=== PATIENT | female | born 1995 | race Caucasian/White ===

== ENCOUNTER 2021-11-11 22:34 | Emergency (ER) | payer SELFPAY ==
[2021-11-12] MEDS ORDERED: NA CHLORIDE 0.9% 1,000 ML ONE (01:47)
[2021-11-12 02:40] LABS: Absolute Lymphocytes (CBC) 2.2 K/uL (0.7-4.9); Hematocrit 38.5 % (36.0-45.0); Lymphocytes % 30.6 % (15.3-44.8); MCV 83.7 fL (80-100); MPV 8.4 fL (7.6-11.3); RBC Red Blood Cell Count 4.59 M/uL (3.86-4.86)
[2021-11-12 02:41] LABS: Protime INR 1.12
[2021-11-12 03:01] LABS: Albumin 3.6 g/dL (3.4-5.0); Bilirubin Direct 0.1 mg/dL (0-0.2); Bilirubin Total 0.2 mg/dL (0.2-1.0); Magnesium 1.8 mg/dL (1.8-2.4); Potassium 3.5 mmol/L (3.5-5.1); Protein, Total 7.2 g/dL (6.4-8.2); Thyroid Stimulating Hormone 2.59 uIU/mL (0.360-3.740); Troponin High Sensitivity 8.8 pg/mL (<58.9)
--- NOTE | 2021-11-12 05:18 | EDPHYS ---
Physician Documentation [facility] Name: Oli Mcneil Age: 25 yrs Sex: Female : 1995 Arrival Date: 11/11/2021 Time: 22:39 Bed 30 Private MD: ED Physician Norberto Roberto HPI: 11/12 01:54 This 25 yrs old Female presents to ER via Ambulatory with complaints of sherine Shortness Of Breath, Left sided Pain. 01:54 The patient has shortness of breath at rest, with light activity. Onset: The sherine symptoms/episode began/occurred 5 day(s) ago. Duration: The symptoms are continuous, and are steadily getting worse. The patient's shortness of breath is aggravated by coughing, light activity. Severity of symptoms: At their worst the symptoms were mild in the emergency department the symptoms are unchanged. The patient has experienced similar episodes in the past, chronically. Historical: - Allergies: 11/11 23:05 Sulfa (Sulfonamide Antibiotics); jb4 23:05 PENICILLINS; jb4 - Home Meds: 23:05 Adderall XR Oral [Active]; jb4 - PMHx: 23:05 HTN; ADHD; jb4 - PSHx: 23:05 None; jb4 - Immunization history:: Adult Immunizations up to date. - Social history:: Smoking status: Patient/guardian denies using tobacco, but has a distant history of tobacco abuse. - Family history:: not pertinent. ROS: 11/12 01:54 Constitutional: Negative for fever, chills, and weight loss, Eyes: Negative for injury, sherine pain, redness, and discharge, ENT: Negative for injury, pain, and discharge, Neck: Negative for injury, pain, and swelling, Cardiovascular: Negative for chest pain, palpitations, and edema, Respiratory: Negative for shortness of breath, cough, wheezing, and pleuritic chest pain, Abdomen/GI: Negative for abdominal pain, nausea, vomiting, diarrhea, and constipation, : Negative for injury, bleeding, discharge, and swelling, MS/Extremity: Negative for injury and deformity, Skin: Negative for injury, rash, and discoloration, Neuro: Negative for headache, weakness, numbness, tingling, and seizure, Psych: Negative for depression, anxiety, suicide ideation, homicidal ideation, and hallucinations, Allergy/Immunology: Negative for hives, rash, and allergies, Endocrine: Negative for neck swelling, polydipsia, polyuria, polyphagia, and marked weight changes, Hematologic/Lymphatic: Negative for swollen nodes, abnormal bleeding, and unusual bruising. Abdomen/GI: Positive for abdominal pain, of the left upper quadrant and left lower quadrant. Back: Positive for pain with movement, of the left scapular area. Exam: 01:54 Constitutional: This is a well developed, well nourished patient who is awake, alert, sherine and in no acute distress. Head/Face: Normocephalic, atraumatic. Eyes: Pupils equal round and reactive to light, extra-ocular motions intact. Lids and lashes normal. Conjunctiva and sclera are non-icteric and not injected. Cornea within normal limits. Periorbital areas with no swelling, redness, or edema. ENT: Nares patent. No nasal discharge, no septal abnormalities noted. Tympanic membranes are normal and external auditory canals are clear. Oropharynx with no redness, swelling, or masses, exudates, or evidence of obstruction, uvula midline. Mucous membranes moist. Neck: Trachea midline, no thyromegaly or masses palpated, and no cervical lymphadenopathy. Supple, full range of motion without nuchal rigidity, or vertebral point tenderness. No Meningismus. Chest/axilla: Normal chest wall appearance and motion. Nontender with no deformity. No lesions are appreciated. Cardiovascular: Regular rate and rhythm with a normal S1 and S2. No gallops, murmurs, or rubs. Normal PMI, no JVD. No pulse deficits. Respiratory: Lungs have equal breath sounds bilaterally, clear to auscultation and percussion. No rales, rhonchi or wheezes noted. No increased work of breathing, no retractions or nasal flaring. Back: No spinal tenderness. No costovertebral tenderness. Full range of motion. Skin: Warm, dry with normal turgor. Normal color with no rashes, no lesions, and no evidence of cellulitis. MS/ Extremity: Pulses equal, no cyanosis. Neurovascular intact. Full, normal range of motion. Neuro: Awake and alert, GCS 15, oriented to person, place, time, and situation. Cranial nerves II-XII grossly intact. Motor strength 5/5 in all extremities. Sensory grossly intact. Cerebellar exam normal. Normal gait. Psych: Awake, alert, with orientation to person, place and time. Behavior, mood, and affect are within normal limits. 01:54 Abdomen/GI: Inspection: abdomen appears normal, Bowel sounds: normal, Palpation: mild abdominal tenderness, in the left upper quadrant and left lower quadrant, Liver: no appreciated palpable abnormalities, Hernia: not appreciated, tenderness. 07:19 ECG was reviewed by the Attending Physician. [facility] Vital Signs: 11/11 23:02 BP 127 / 67; Pulse 82; Resp 16; Temp 97.6(TE); Pulse Ox 97% on R/A; Weight 87.09 kg jb4 (R); Height 5 ft. 7 in. (170.18 cm) (R); Pain 6/10; 11/12 00:19 BP 125 / 48; Pulse 77; Resp 18 S; Pulse Ox 98% on R/A; as6 01:45 BP 127 / 76; Pulse 77; Resp 16 S; Pulse Ox 99% on R/A; aa9 02:58 BP 131 / 77; Pulse 76; Resp 16 S; Pulse Ox 97% on R/A; aa9 04:10 BP 105 / 60; Pulse 61; Resp 16 S; Pulse Ox 97% on R/A; aa9 05:26 BP 119 / 69; Pulse 59; Resp 18 S; Pulse Ox 97% on R/A; as6 11/11 23:02 Body Mass Index 30.07 (87.09 kg, 170.18 cm) jb4 MDM: 00:35 Patient medically screened. sherine 01:54 Differential diagnosis: Anemia Bronchitis. Antibiotic administration: Not indicated. sherine The patient's Wells Deep Vein Thrombosis Score was calculated as follows: Total Score: 0-2 Pts- Low Risk. The patient's pulmonary embolism risk score was calculated as follows: Total Score: 0-2 points. This patient was found to be at low risk for a pulmonary embolism by using the Well's assessment criteria. Immunization status:. Data reviewed: vital signs, nurses notes, lab test result(s), EKG, radiologic studies, CT scan, plain films. Data interpreted: threat monitoring analyst: rate is 77 beats/min, rhythm is regular, Pulse oximetry: on room air is 98 %. Test interpretation: by ED physician or midlevel provider: ECG, plain radiologic studies. Counseling: I had a detailed discussion with the patient and/or guardian regarding: the historical points, exam findings, and any diagnostic results supporting the discharge/admit diagnosis, lab results, radiology results, the need for outpatient follow up, for definitive care, a prehemmer, a family practitioner. 11/12 00:55 Order name: Basic Metabolic Panel; Complete Time: 05:16 [facility] 11/12 00:55 Order name: CBC with Diff; Complete Time: 03:00 [facility] 11/12 00:55 Order name: LFT's; Complete Time: 05:16 [facility] 11/12 00:55 Order name: Magnesium; Complete Time: 05:16 [facility] 11/12 00:55 Order name: NT PRO-BNP; Complete Time: 05:16 [facility] 11/12 00:55 Order name: PT-INR; Complete Time: 03:00 [facility] 11/12 00:55 Order name: Troponin HS; Complete Time: 05:16 [facility] 11/12 00:55 Order name: XRAY Chest (1 view) [facility] 11/12 00:55 Order name: Lipase; Complete Time: 05:16 [facility] 11/12 00:55 Order name: TSH; Complete Time: 05:16 [facility] 11/12 00:55 Order name: SARS-COV-2 RT PCR (Document "Date of Onset" if Symptomatic); Complete Time: [facility] 05:11/12 05:25 Order name: Urine --Ancillary (enter results) as6 07 05:26 Order name: Urine Dipstick-Ancillary EDMS 11/12 00:55 Order name: EKG; Complete Time: 00:55 [facility] 11/12 00:55 Order name: Cardiac monitoring; Complete Time: 02:57 [facility] 11/12 00:55 Order name: EKG - Nurse/Tech; Complete Time: 02:08 [facility] 11/12 00:55 Order name: IV Saline Lock; Complete Time: 02:57 [facility] 11/12 00:55 Order name: Labs collected and sent; Complete Time: 02:57 [facility] 11/12 00:55 Order name: O2 Per Protocol; Complete Time: 00:57 [facility] 11/12 00:55 Order name: O2 Sat Monitoring; Complete Time: 00:57 [facility] 11/12 00:55 Order name: Urine Dipstick-Ancillary (obtain specimen); Complete Time: 02:57 [facility] 11/12 00:55 Order name: Urine Test (obtain specimen); Complete Time: 02:57 [facility] 11/12 00:55 Order name: CT Chest For PE Angio [facility] 11/12 00:55 Order name: CT Abd/Pelvis - IV Contrast Only sherine EC:19 Rate is 65 beats/min. Rhythm is regular. QRS [place] is Normal. [place] interval is normal. QRS sherine interval is normal. QT interval is normal. No Q waves. T waves are Normal. No ST changes noted. Clinical impression: Normal ECG and No evidence of ischemia. Interpreted by me. Reviewed by me. Administered Medications: 02:10 Drug: NS 0.9% 1000 ml Route: IV; Rate: 1 bolus; Site: left antecubital; aa9 05:27 Follow up: Response: No adverse reaction; IV Status: Completed infusion; IV Intake: as6 1000ml Disposition Summary: 11/12/21 05:17 Discharge Ordered Location: Home sherine Problem: new sherine Symptoms: have improved sherine Condition: Stable sherine Diagnosis - Chest pain, unspecified - non-cardiac sherine - Abdominal pain, unspecified sherine - Weakness sherine - Other ovarian cysts - 8.3 cm right sherine - UTI/ Urinary tract infection, site not specified sherine Followup: sherine - With: Private Physician - When: 2 - 3 days - Reason: Recheck today's complaints, Continuance of care, Re-evaluation by your physician Followup: sherine - With: - When: 2 - 3 days - Reason: Recheck today's complaints, Re-evaluation by your physician Followup: sherine - With: Jia Walters MD - When: 2 - 3 days - Reason: Recheck today's complaints, Re-evaluation by your physician Discharge Instructions: - Discharge Summary Sheet sherine - Abdominal Pain, Adult sherine - Nonspecific Chest Pain, Adult sherine - Weakness sherine - Ovarian Cyst sherine - Urinary Tract Infection, Adult sherine - Fatigue sherine - Nonspecific Chest Pain, Adult, Vjdy-xy-Paow sherine - Aspirin and Your Heart sherine - Ovarian Cyst, Cmsf-dr-Pope sherine Forms: - Medication Reconciliation Form sherine - Thank You Letter sherine - Antibiotic Education sherine - Prescription Opioid Use sherine Prescriptions: - Pepcid 20 mg Oral Tablet - take 1 tablet by ORAL route every 12 hours for 15 days; 30 tablet; Refills: 0, sherine Product Selection Permitted - dicyclomine 20 mg Oral Tablet - take 1 tablet by ORAL route 4 times per day; 28 tablet; Refills: 0, Product sherine Selection Permitted - Cipro 250 mg Oral Tablet - take 1 tablet by ORAL route every 12 hours; 14 tablet; Refills: 0, Product sherine Selection Permitted Signatures: Dispatcher [employer] Norberto Whaley MD MD cha Bryson, James RN RN jb4 Jeanette Kim RN RN aa9 Héctor Spencer RN as6 Corrections: (The following items were deleted from the chart) 11/11 23:07 23:05 Allergies: No Known Allergies; pippa jb4
--- NOTE | 2021-11-12 05:18 | ER ---
Nurse's Notes [facility] Name: Oli Mcneil Age: 25 yrs Sex: Female : 1995 Arrival Date: 11/11/2021 Time: 22:39 Bed 30 Private MD: Diagnosis: Chest pain, [id number];Abdominal pain, unspecified;Weakness;Other ovarian cysts-8.3 cm right ;UTI/ Urinary tract infection, site not specified Presentation: 11/11 23:02 Chief complaint: Patient states: For the past few months I have had chest tightness jb4 from my back to my chest. I started feeling short of breath around the same time. I was recently at an urgent care, was told nothing was wrong, and now the pain radiates down my left side. Coronavirus screen: At this time, the client does not indicate any symptoms associated with coronavirus-19. Ebola Screen: No symptoms or risks identified at this time. Initial Sepsis Screen: Does the patient meet any 2 criteria? No. Patient's initial sepsis screen is negative. Does the patient have a suspected source of infection? No. Patient's initial sepsis screen is negative. Risk Assessment: Do you want to hurt yourself or someone else? Patient reports no desire to harm self or others. Onset of symptoms was November 11, 2021. Transition of care: patient was not received from another setting of care. 23:02 Method Of Arrival: Ambulatory jb4 23:02 Acuity: YESENIA 3 jb4 Historical: - Allergies: 23:05 Sulfa (Sulfonamide Antibiotics); jb4 23:05 PENICILLINS; jb4 - Home Meds: 23:05 Adderall XR Oral [Active]; jb4 - PMHx: 23:05 HTN; ADHD; jb4 - PSHx: 23:05 None; jb4 - Immunization history:: Adult Immunizations up to date. - Social history:: Smoking status: Patient/guardian denies using tobacco, but has a distant history of tobacco abuse. - Family history:: not pertinent. Screenin/05 00:19 Abuse screen: Denies threats or abuse. Denies injuries from another. Nutritional as6 screening: No deficits noted. Tuberculosis screening: No symptoms or risk factors identified. Fall Risk None identified. Assessment: 00:18 General: Appears in no apparent distress. Behavior is calm, cooperative. General: as6 Reports fatigue for. Pain: Complains of pain in left scapular area, anterior aspect of left upper chest, left breast, posterior aspect of left lateral abdomen and anterior aspect of left lateral abdomen. Neuro: Level of Consciousness is awake, alert, obeys commands, Oriented to person, place, time, situation. Cardiovascular: JVD is absent Patient's skin is warm and dry. Respiratory: Respiratory effort is even, unlabored. Musculoskeletal: Reports pain in back, chest and abdomen. 02:59 Reassessment: Patient appears in no apparent distress at this time. Patient is alert, aa9 oriented x 3, equal unlabored respirations, skin warm/dry/pink. 04:11 Reassessment: Patient appears in no apparent distress at this time. Patient is alert, aa9 oriented x 3, equal unlabored respirations, skin warm/dry/pink. 04:11 General: updated pt on awaiting CT results . aa9 Vital Signs: 11/11 23:02 BP 127 / 67; Pulse 82; Resp 16; Temp 97.6(TE); Pulse Ox 97% on R/A; Weight 87.09 kg jb4 (R); Height 5 ft. 7 in. (170.18 cm) (R); Pain 6/10; 11/12 00:19 BP 125 / 48; Pulse 77; Resp 18 S; Pulse Ox 98% on R/A; as6 01:45 BP 127 / 76; Pulse 77; Resp 16 S; Pulse Ox 99% on R/A; aa9 02:58 BP 131 / 77; Pulse 76; Resp 16 S; Pulse Ox 97% on R/A; aa9 04:10 BP 105 / 60; Pulse 61; Resp 16 S; Pulse Ox 97% on R/A; aa9 05:26 BP 119 / 69; Pulse 59; Resp 18 S; Pulse Ox 97% on R/A; as6 11/11 23:02 Body Mass Index 30.07 (87.09 kg, 170.18 cm) jb4 ED Course: 11/11 22:39 Patient arrived in ED. bp1 23:05 Triage completed. jb4 23:05 Arm band placed on right wrist. jb4 23:43 Héctor Spencer, RN is Primary Nurse. as6 11/12 00:19 Bed in low position. Call light in reach. Side rails up X 1. Adult w/ patient. Pulse ox as6 on. NIBP on. Warm blanket given. 00:35 Norberto Roberto MD is Attending Physician. sherine 01:19 XRAY Chest (1 view) In Process Unspecified. EDMS 02:00 Inserted saline lock: 20 gauge in left antecubital area, using aseptic technique. Blood aa9 collected. 02:56 SARS-COV-2 RT PCR (Document "Date of Onset" if Symptomatic) Sent. aa9 02:56 TSH Sent. aa9 02:56 Lipase Sent. aa9 02:57 Basic Metabolic Panel Sent. aa9 02:57 LFT's Sent. aa9 02:57 Magnesium Sent. aa9 02:57 NT PRO-BNP Sent. aa9 02:57 Troponin HS Sent. aa9 03:22 CT Chest For PE Angio In Process Unspecified. EDMS 03:22 CT Abd/Pelvis - IV Contrast Only In Process Unspecified. EDMS 05:16 David Orourke DO is Referral Physician. sherine 05:17 Jia Walters MD is Referral Physician. sherine 05:39 No provider procedures requiring assistance completed. IV discontinued, intact, aa9 bleeding controlled, No redness/swelling at site. Pressure dressing applied. 07:16 Primary Nurse role handed off by Héctor Spencer RN iw Administered Medications: 02:10 Drug: NS 0.9% 1000 ml Route: IV; Rate: 1 bolus; Site: left antecubital; aa9 05:27 Follow up: Response: No adverse reaction; IV Status: Completed infusion; IV Intake: as6 1000ml Medication: 05:40 VIS not applicable for this client. aa9 Intake: 05:27 IV: 1000ml; Total: 1000ml. as6 Outcome: 05:17 Discharge ordered by . sherine 05:39 Discharged to home ambulatory, with family. aa9 05:39 Condition: stable 05:39 Discharge instructions given to patient, family, Instructed on discharge instructions, follow up and referral plans. medication usage, Demonstrated understanding of instructions, follow-up care, medications, Prescriptions given X 3. 05:40 Patient left the ED. aa9 07:21 Patient left the ED. iw Signatures: Dispatcher [employer] EDTN Norberto Roberto MD MD cha Williams, Irene RN Dejuan Cormier RN RN [email or web address] Aurora Silva Ashby, RN RN as6 Jeanette Kim RN RN aa9 Corrections: (The following items were deleted from the chart) 11/11 23:07 23:05 Allergies: No Known Allergies; jb4 jb4
[2021-11-12 05:26] LABS: Urine Blood Negative (Negative); Urine Glucose Negative (Negative); Urine Protein Negative (Negative); Urine Specific Gravity 1.015 (1.005-1.030); Urine pH 5.5 (5.0-7.0)
[2021-11-12 05:32] LABS: Urine Specific Gravity/Preg 1.015 (1.005-1.030)
[2021-11-12 06:09] VITALS: TEMP 97.6
[2021-11-12 06:13] VITALS: O2SAT 97
[2021-11-12 06:17] VITALS: BP 119/69
--- NOTE | 2021-11-12 07:55 | EKG ---
Test Date: 2021-11-12 Test Time: 02:07:56 Tube Making Machine Operator: MEASUREMENT RESULTS: Intervals: Rate: 65 OK: 156 QRSD: 100 QT: 386 QTc: 401 Hyndman: P: 27 OK: 156 QRS: 82 T: 73 INTERPRETIVE STATEMENTS: Normal sinus rhythm with sinus arrhythmia Normal ECG No previous ECG available for comparison Electronically Signed On 11-12-21 07:54:57 CDT by Carson Wei
--- NOTE | 2021-11-12 13:16 | RAD REPORT ---
EXAM DESCRIPTION: RAD - Chest Single View - 11/12/2021 1:17 am CLINICAL HISTORY: 25 years, Female, CHEST PAIN COMPARISON: None. FINDINGS: Single view of the chest was obtained portable. No prior films are available for compariso n. The cardiomediastinal silhouette demonstrate to be unremarkable. The heart is not enlarged. The thoracic aorta is unremarkable. Costophrenic angles are sharp. No areas of consolidation or masses are seen. The rest of the soft tissue and bony structures demonstrate to be unremarkable. IMPRESSION: NO ACUTE CARDIOPULMONARY DISEASE SEEN. Electronically signed by: Gabriel Fleming MD 11/12/2021 1:33 AM CDT Due to temporary technical issues with the PACS/Fluency reporting system, reports are being signed by the in house radiologist without review as a courtesy to ensure prompt reporting. The interpreting r adiologist is fully responsible for the content of the report.
--- NOTE | 2021-11-12 13:53 | RAD REPORT ---
EXAM DESCRIPTION: CT - Chest For Pe Angio - 11/12/2021 6:54 am COMPARISON: None. CLINICAL HISTORY: Abdominal pain, acute, nonlocalized TECHNIQUE: CT images through the chest with IV contrast using the pulmonary embolus protocol and thr ough the abdomen and pelvis. Multiplanar reformats. MIPS reformats are provided. Automated exposure control was utilized on this examination as a dose lowering technique. FINDINGS: Pulmonary arteries and vascular: Diagnostic quality bolus. No filling defects. Heart and mediastinum: Heart size is normal. No lymphadenopathy. Thyroid gland: Visualized portions are normal. Lungs: Clear. Airways: No filling defects. No bronchiectasis. Pleura: No pneumothorax. No significant pleural effusion. Musculoskeletal and soft tissues: Within normal limits for age. CT ABDOMEN & PELVIS FINDINGS: Liver: Normal. Gallbladder and biliary: Normal gallbladder. Unremarkable biliary tree. Pancreas: Normal. Spleen: Normal. Kidneys and adrenal glands: A 1.0 cm left adrenal myelolipoma is present. Bilateral superior renal co rtical scarring is present. Stomach and Small Bowel: The stomach and small bowel are normal. Urinary bladder: Normal. Uterus and Adnexa: An 8.3 cm right adnexal cystic lesion is present. Colon and Appendix: The colon is unremarkable. No evidence of appendicitis. Peritoneal cavity: No ascites or free air. Retroperitoneum and lymph nodes: Normal. Vascular: Unremarkable. Musculoskeletal and soft tissues: Soft tissues are unremarkable. No aggressive bone lesions. No c ompression fracture. IMPRESSION: CHEST IMPRESSION: No evidence of pulmonary embolus or other acute chest process. ABDOMEN AND PELVIS IMPRESSION: 1. No acute intra-abdominal abnormality. 2. Bilateral superior renal scarring. 3. 8.3 cm right adnexal cystic lesion. Recommend ultrasound follow-up in 3-6 months. Electronically signed by: Fran Ortiz MD 11/12/2021 5:09 AM CDT Due to temporary technical issues with the PACS/Fluency reporting system, reports are being signed by the in house radiologist without review as a courtesy to ensure prompt reporting. The interpreting r adiologist is fully responsible for the content of the report.
--- NOTE | 2021-11-12 13:55 | RAD REPORT ---
EXAM DESCRIPTION: CT - Abdomen Pelvis W Contrast - 11/12/2021 6:54 am COMPARISON: None. CLINICAL HISTORY: Abdominal pain, acute, nonlocalized TECHNIQUE: CT images through the chest with IV contrast using the pulmonary embolus protocol and thr ough the abdomen and pelvis. Multiplanar reformats. MIPS reformats are provided. Automated exposure control was utilized on this examination as a dose lowering technique. FINDINGS: Pulmonary arteries and vascular: Diagnostic quality bolus. No filling defects.Heart and me diastinum: Heart size is normal. No lymphadenopathy.Thyroid gland: Visualized portions are normal.Willie gs: Clear.Airways: No filling defects. No bronchiectasis.Pleura: No pneumothorax. No significant pleu ral effusion.Musculoskeletal and soft tissues: Within normal limits for age. CT ABDOMEN & PELVIS FINDINGS:Liver: Normal.Gallbladder and bi liary: Normal gallbladder. Unremarkable biliary tree.Pancreas: Normal.Spleen: Normal.Kidneys and adre nal glands: A 1.0 cm left adrenal myelolipoma is present. Bilateral superior renal cortical scarring is present.Stomach and Small Bowel: The stomach and small bowel are normal.Urinary bladder: Normal.Ut erus and Adnexa: An 8.3 cm right adnexal cystic lesion is present.Colon and Appendix: The colon is un remarkable. No evidence of appendicitis.Peritoneal cavity: No ascites or free air.Retroperitoneum and lymph nodes: Normal.Vascular: Unremarkable.Musculoskeletal and soft tissues: Soft tissues are unrema rkable. No aggressive bone lesions. No compression fracture. IMPRESSION: CHEST IMPRESSION: No evidence of pulmonary embolus or other acute chest process.ABDOME N AND PELVIS IMPRESSION: 1. No acute intra-abdominal abnormality. 2. Bilateral superior renal scarr ing. 3. 8.3 cm right adnexal cystic lesion. Recommend ultrasound follow-up in 3-6 months. Electronically signed by: Fran Ortiz MD 11/12/2021 5:09 AM CDT Due to temporary technical issues with the PACS/Fluency reporting system, reports are being signed by the in house radiologist without review as a courtesy to ensure prompt reporting. The interpreting r adiologist is fully responsible for the content of the report.
== END 2021-11-12 07:21 | disposition home or self-care (01) ==
LOC: ER 22:34
DX: R07.89 Other chest pain (principal); R10.9 Unspecified abdominal pain; R53.1 Weakness; N39.0 Urinary tract infection, site not specified; N83.291 Other ovarian cyst, right side; I10 Essential (primary) hypertension; Z88.0 Allergy status to penicillin; Z88.2 Allergy status to sulfonamides
CPT/HCPCS: 36415; 71045; 71275; 74177; 80048; 80076; 81003; 81025; 83690; 83735; 83880; 84443; 84484; 85025; 85610; 93005; 96360; 96361; 99284; J7030; Q9967; U0003

== ENCOUNTER 2022-08-01 02:10 | Emergency (ER) | payer SELFPAY ==
--- OUTSIDE RECORDS SUMMARY | 2022-08-01 02:14 | XMS REPORT | Continuity of Care Document ---
:1995 Author Organization [facility] Address [address] [facility] [address] [place] [address] Care Team Providers Name Role Phone Asked, No Pcp Primary Care Physician Unavailable Uvaldo Kenney Attending Clinician Unavailable Sandro Lewis Attending Clinician Unavailable Bonita Mathis Attending Clinician Unavailable Damian Whitt Attending Clinician Unavailable LIANA ROJAS Attending Clinician Unavailable Physician, No Primary or Family Admitting Clinician Unavaila ble Payers Payer Name Policy Type Policy Number Effective Date Expiration Date S ource Problems Condition Condition Condition Status Onset Resolution Last Treating Co mments Source Name Details Category Date Date Treatment Clinician Date No known No known Disease Metho di active active st problems problems Hospit [facility] l Allergies, Adverse Reactions, Alerts Allergy Allergy Status Severity Reaction(s) Onset Inactive Treating Comm ents Source Name Type Date Date Clinician Penicill DA Active [place] [facility] [place] [facility] 00 are [place] Sulf[place] DA Active [place] [facility] (Sulf[place] 10-19 [facility] 00:00: [facility] Antibiot 00 are ics) [place] Penicill DA Active [place] [facility] [place] 00:[facility] 00 are [place] Sulf[place] DA Active [place] [facility] 6[facility]11 [place] [facility] 00:00: [facility] Antibiot 00 are ics) [place] Penicill Propensi Active [facility] reaction 00 Center s Sulfa Propensi Active [facility] adverse [facility] Antibiot reaction 00 Center ics) s Penicill Propensi Active [facility] ty to [facility] adverse 00:00: Hospita reaction 00 l s to drug Sulfa Propensi Active [facility] (Sulfona ty to 07-06 [facility] adverse 00:00: Hospita Antibiot reaction 00 l ics) s to drug Social History Social Habit Start Date Stop Date Quantity Comments Source History of tobacco Cigarette Smoker [facility] use [facility] Alcohol intake 2017-07-07 2017-07-07 .57 /d [facility] Kateryna es 00:00:00 00:00:00 [facility] Cigarettes smoked 2017-07-07 2017-07-07 [facility] current (pack per 00:00:00 00:00:00 [facility] day) - Reported Cigarette 2017-07-07 2017-07-07 [facility] pack-years 00:00:00 00:00:00 [facility] Tobacco use and 2017-07-07 2017-07-07 Never used [facility] nishs exposure 00:00:00 00:00:00 [facility] Sex Assigned At [birth year] [facility] 00:00:00 00:00:00 [facility] Smoking Status Start Date Stop Date Source Current every day smoker 2017-07-07 00:00:00 [facility] Medications Ordered Filled Start Stop Current Ordering Indication Dosage Frequency Signature Comments Components Source Medication Medication Date Date Medication? Clinician (SIG) Name Name No known No No known Metho di medications 8-[address] 13[facility]00: [facility] l No known No No known Metho di medications 8-[address] [facility]: [facility] l Procedures This patient has no known procedures. Plan of Care Planned Activity Planned Date Details Comments Source Future Scheduled 2022-04-28 Screening for [facility] Test 22:38:56 malignant neoplasm of cervix (procedure) [code = 694894933] Future Scheduled 2022-04-28 [facility]:38:56 [code = INFLUENZA VACCINE] Future Scheduled 2022-04-28 COVID-[address] [facility] Test 22:38:56 (#1) [code = COVID-19 VACCINE (#1)] Future Scheduled 2022-04-28 [facility] 22:38:56 (#1) [code = COVID-19 VACCINE (#1)] Future Scheduled 2022-04-28 Screening for [facility] Test 22:38:56 malignant neoplasm of cervix (procedure) [code = 132559980] Future Scheduled 2022-04-28 [facility] 22:38:56 [code = INFLUENZA VACCINE] Future Scheduled 2022-03-14 Screening for [facility] Test 20:18:12 malignant neoplasm of cervix (procedure) [code = 569926322] Future Scheduled 2022-03-14 [facility] 20:18:12 [code = INFLUENZA VACCINE] Future Scheduled 2022-03-14 [facility] 20:18:12 (#1) [code = COVID-19 VACCINE (#1)] Encounters Start End Encounter Admission Attending Care Care Encounter Source Date/Time Date/Time Type Type Clinicians Facility Department ID 2021-03-31 Inpatient EM Pablito GUY CAZARES [id number] [facility] 06:38:00 Uvaldo 25 [facility] are [facility] 2022-04-28 2022-04-28 Emergency EM Joshua, [facility] [id number] [facility] 21:44:00 23:51:00 Sandro 54 [facility] are [place] 2022-04-11 2022-04-11 Emergency EM Del, [facility] [id number] [facility] 10:17:00 15:00:00 Bonita 13 [facility] are [place] 2021-06-03 2021-06-03 Emergency EM Whitt, [facility] [id number] [facility] 01:34:00 02:16:00 Damian 84 [facility] are [place] 2021-04-01 2021-04-01 Emergency EM Whitt [facility] [id number] [facility] 21:40:00 23:14:00 Damian 21 [facility] are [place] 2020-10-19 2020-10-20 Emergency EM Jose Eduardo, ZULEIKATB SAGE [id number] [facility] 22:38:00 01:57:00 Damian 31 [facility] are [place] Results Test Description Test Time Test Comments Results Result [facility] e Comments - XR CHEST 2 V 2022-04-28 23:08:00 [facility] 1995 Sex: F Patie nt Name: SEBAS LOU Unit No: [id number] EXAMS: CPT: [id number] XR CHEST 2 V [id number] EXAM: XR CHEST 2 VIEWS DATE: 04/28/2022 9:47 PM INDICATION: SOB COMPARISON: None. TECHNIQUE: PA and lateral chest radiographs. FINDINGS: Lines, tubes and hardware: None. Lungs and pleura: Pulmonary vascularity is normal. The lungs are clear. The costophrenic sulci are sharp without effusion. No pneumothorax is identified. Heart and mediastinum: The heart size is normal. The mediastinal contours are normal. Bones, soft tissues: No acute abnormality. IMPRESSION: No acute cardiopulmonary abnormality. at 2308 Reported and signed by: RYAN ANDERSON M.D. CC: Technologist: Ludmila Montoya Time: DAP (Gy m2): Air Kerma (mGy): Trscr Dt/Tm: 04/28/2022 (2308) by:[email or web address] Orig Print D/T: S: 04/28/2022 (2861) BATCH NO: N/A Name: SEBAS LOU [facility] [place] Phys: Sandro Taylor MD [address] : 1995 Age: 26 Sex: F Thierno Bauer Loc: T.ERS Exam Date: 04/28/2022 Status: REG ER PH: FAX: PAGE 1 Signed Report Coronavirus 2019 nCoV Bedside 2022-04-28 23:07:00 Test Item Value Reference Range Interpretation Comme nts Coronavirus 2018 nCoV Negative NEGATIVE TESTI NG COMPLETED WITHIN ONE HOUR - Bedside (test code = DELAY I N REPORTING DUETO ONE TECH WHO [id number]) WAS BUSY IN OOD BANK DEPTTHE ID NOW COVID-19 EUA RODRIGUEZ S NOT BEEN FDA CLEARED ORAPPROVED. IT HAS BEEN AUTHORIZED BY THE FDA UNDER A NEMERGENCY USE AUTHORIZATION F OR USE BY AUTHORIZEDLABOR ATORIES AND PATIENT CARE SETTINGS. THE TEST HAS BEENAUTHORIZED ONLY FOR THE DETECTION OF NUCLEIC ACID [id number], NOT FOR ANY OTHER V IRUSES OR PATHOGENS, AND ISONLY AUTH ORIZED FOR THE DURATION OF THE DECLARATION THATCIRCUMSTANC ES EXIST JUSTIFYING THE AUTHORIZATI ON OFEMERGENCY USE OF IN VITRO DIAGNO STIC TESTS FOR DETECTIONAND/OR DIAGNOSIS OF COVID-19 UNDER SECTION 5 64(B)(1) OF [place], 21 U.S.C. 360bbb-3 (b)(1), UNLESS THE AUTHORIZATION I STERMINATED OR REVOKED SOONER.Negative results should be treated as pres umptive and, ifinconsistent with clinical signs and symptoms or necessaryfor patient managmeent, madhavi uld be tested with differentauthor izd or cleared molecular tests . Negative results donot preclude SARS-Cov-2 infection and should not be used asthe sole basis for patie nt management decisions. Nega tiveresults should be considered in t he context of a patient'srecent exposures, history and presence of clinical signs andsymptons con sistent with COVID-19. UR HCG [id number] 22:42:00 Test Item Value Reference Range Interpretation Comments UR HCG QUAL (test code = HCGQLU) NEGATIVE NEGATIVE HCG SERUM [id number] 15:59:00 Test Item Value Reference Range Interpretation Comments HCG SERUM QUAL (test code = HCGQL) NEGATIVE NEGATIVE DATE OF LAST MENSTRUAL PERIOD: 04/10/22B-TYPE NATRIURETIC [id number] 14:01:00 Test Item Value Reference Range Interpretation Comments B-TYPE NATRIURETIC PEPTIDE (test code 5 pg/mL 0-100 N = BNP) [id number] 13:59:00 Test Item Value Reference Range Interpretation Comments TROPONIN-I < 2.5 ng/L 0.0-34.0 N CAUTION: UNITS OF THE (test code = CURRENT TEST ME THODOLOGY TROPI) (ng/L) DIFFERFR OM THE PRIOR TEST METHODOLOG Y (ng/mL) BY A FACTOR OF 100 0.RESULTS FROM DIFFERENT METHODS SHOULD NOT BE C OMPARED TO ONEANOTHER Q UANTITATIVE RESULTS AND URL S MAY VARY BY METHOD. IN OR BERHANE TO DISTINGUISH ACU TE ELEVATIONS OF HIGH SENSITI VETROPONIN FROM OTHER CLIN ICAL CONDITIONS, THE UNIVERSALDEFINI TION OF MYOCARDIAL INFA RCTION STRESSES CLINIC ALASSESSMENT AND THE NEED FO R SERIAL MEASUREMENTS TO OBSERVE ARISE AND/OR FA LL ABOVE THE UPPER LIMIT OF THE REFERENCERANGE. CONSIDERATION F OR CARDIOLOGY EVALUATION AND DRAWINGTHIRD hs-cTn, INCLUDI NG IF CHANGE IN THE CLINICAL STATUS ORSERIAL hs-cTn s ARE INCREASING, PAR TICULARLY ABOVE THE 99THGENDER-SPEC IFIC PERCENTILE. BASIC METABOLIC [id number] 13:58:00 Test Item Value Reference Range Interpretation Comments SODIUM (test code 137 mmol/L 136-145 N = NA) POTASSIUM (test 4.5 mmol/L 3.4-4.5 N code = K) CHLORIDE (test 103 mmol/L 98-107 N code = CL) CARBON DIOXIDE 27 mmol/l 20-31 N (test code = CO2) GLUCOSE (test code 86 mg/dL 74-106 N = GLU) BLOOD UREA 9 mg/dL 9-23 N NITROGEN (test code = BUN) GLOMERULAR >=60 max >60 The Glomerular FILTRATION RATE estimate Filtration R ate is a (test code = GFR) calculated parameterbased on serum Creatinin e, patient age and sex. GFR valuesless than 60 mL/min/1.73 square meters are chan cative ofChronic Kidne y Disease. Values less than 15 mL/min/1.73squa re meters indicate Kidney failure. The calculation for GFR is based on the CK D-EPI (2020) calculat ion. This formulais race indifferent and is the recommended formula for GFR by the National Kidney Foundation for Adults.The GFR will not calculate i f the sex is unknown or if thepatient's ag e is <18 years. CREATININE (test 0.74 mg/dL 0.55-1.02 N code = CREAT) CALCIUM (test code 9.1 mg/dL 8.6-10.3 N = CA) LIVER FUNCTION [id number] 13:58:00 Test Item Value Reference Range Interpretation Comments TOTAL PROTEIN (test code = PROT) 7.2 g/dL 5.7-8.2 N ALBUMIN (test code = ALB) 4.1 g/dl 3.4-5.0 N BILIRUBIN TOTAL (test code = BILT) 0.4 mg/dL 0.3-1.2 N BILIRUBIN DIRECT (test code = 0.1 mg/d/L 0.0-0.3 N BILD) BILIRUBIN INDIRECT (test code = 0.3 mg/dL 0.0-1.2 N BILIND) SGOT/AST (test code = AST) 30 U/L 0-34 N SGPT/ALT (test code = ALT) 19 U/L 10-49 N ALKALINE PHOSPHATASE (test code = 79 U/L 46-116 N ALKP) [id number] 13:58:00 Test Item Value Reference Range Interpretation Comments LIPASE (test code = LIP) 41 U/L 12-53 N PROTHROMBIN [id number] 13:49:00 Test Item Value Reference Range Interpretation Comments PROTHROMBIN TIME 11.9 SECONDS 9.5-12.9 N PATIENT (test code = PTP) INTERNATIONAL NORMAL 1.0 0.85-1.15 N The INR is to be used RATIO (test code = only for monitoring INR) ORAL ANTICOAGULANTTH ERAPY. Indication INR Value1. Prophylaxis/taylor atment of: Venous Thro mbosis, Pulmonary Embol ism 2.0 - 3.02. Prevent ion of systemic emboli sm from: Tissue he art valves 2.0 - 3 .0 Acute myocardia l infarction (to present systemic emboli sm)* 2.0 - 3.0 Valvu lar heart disease 2 .0 - 3.0 Atrial fibrillation 2. 0 - 3.03. Mechanica l prosthetic valv es (high risk) 2.5 - 3.5 * If oral anticoagulant t herapy is elected to preventrecurren t myocardial infa rction, an INR of 2.5-3 .5 isrecommended, consistent with Food and Drug Administrationr ecommen dations. THROMBOPLASTIN TIME [id number] 13:49:00 Test Item Value Reference Range Interpretation Comments THROMBOPLASTIN TIME PARTIAL (test 31 SECONDS 25.1-36.5 N code = PTT) [id number] 13:49:00 Test Item Value Reference Range Interpretation Comments D-DIMER (test < 215 ng/mLFEU 0-500 N THE DDIMER M ETHOD IS USED code = IN THE EXCLUSIO N OF DEEP DDIMER) VEINTHROMBOSIS AND/OR PULMONARY EMBOL ISM AND THE CLINICAL CUT-OF F VALUE FOR EXCLUSION (500 NG/ML FEU) OF THESE CONDIT IONSIS VALIDATED BY E EDGE GLUE MACHINE TENDER OF THE METHOD. A NEGATIVE DDIM ER RESULT WHEN COMBINED W ITH A CLINICALASSESSM ENT OF LOW PRETEST PROBABI LITY HAS BEEN SHOWN TO H AVEA HIGH NEGATIVE PREDIC TIVE VALUE OF DVT OR PE. D -DIMER VALUES >500 ng/ mL ARE NOT DIAGNOSTIC FOR DVT,PEOR DIC WITHOUT OTHER C ONFIRMATORY TESTS AND APPROPRIATECLIN ICAL EVALUATIONS. Coronavirus 2019 nCoV [id number] 13:24:00 Test Item Value Reference Range Interpretation Comments Coronavirus 2019 Negative NEGATIVE THE ID NOW COVID-19 EUA HAS nCoV Bedside (test NOT BEEN FDA CLEARED code = ORAPPROVED. IT HAS BEEN [id number]) AUTHORIZED BY THE FDA UNDER ANEMERGENCY USE AUTHORIZATION F OR USE BY AUTHORIZEDLABOR ATORIES AND PATIENT CARE SE TTINGS. THE TEST HAS BEENAU THORIZED ONLY FOR THE DETECTI ON OF NUCLEIC ACID FROMSARS-C oV-2, NOT FOR ANY OTHER VIRUS ES OR PATHOGENS, AND ISONLY AUTHORIZED FOR THE DURATION OF THE DECLARAT ION THATCIRCUMSTANC ES EXIST JUSTIFYING THE AUTHORIZATION OFEMERGENCY USE OF IN VITRO DIAGNOSTIC TEST S FOR DETECTIONAND/OR DIAGNOSIS OF COVID-19 UNDER SECTION 564(B)(1) OF [facility], 21 U.S.C. 360bbb-3 (b)(1), UNLESS THE AUTH ORIZATION ISTERMINATED OR REVOKED SOONER.Negative results should be treat ed as presumptive and , ifinconsistent with clinical signs and sympt oms or necessaryfor pa tient managmeent, madhavi uld be tested with differenta uthorizd or cleared molecul ar tests. Negative result s donot preclude SARS-C ov-2 infection and s hould not be used asthe sole basis for patient managem ent decisions. Nega tiveresults should be consi dered in the context of a pa tient'srecent exposures, hist ory and presence of cli nical signs andsymptons con sistent with COVID-19. CBC W/AUTO [id number] 13:23:00 Test Item Value Reference Range Interpretation Comments WHITE BLOOD CELL (test code = WBC) 7.46 K/mm3 5.0-12.0 N RED BLOOD CELL (test code = RBC) 4.68 M/mm3 4.20-5.40 N HEMOGLOBIN (test code = HGB) 13.5 G/DL 12.0-16.0 N HEMATOCRIT (test code = HCT) 41.2 % 34.9-44.5 N MEAN CELL VOLUME (test code = MCV) 88 fL 81-99 N MEAN CELL HGB (test code = MCH) 28.8 PGM 27-31 N MEAN CELL HGB CONCENTRATION (test 32.8 G/DL 33-37 L code = MCHC) RED CELL DISTRIBUTION WIDTH (test 12.2 % 11.6-16.2 N code = RDW) PLATELET COUNT (test code = PLT) 243 K/mm3 130-400 N MEAN PLATELET VOLUME (test code = 10.5 fl 7.4-10.4 H MPV) NEUTROPHIL % (test code = NT%) 71.8 % 43-65 H IMMATURE GRANULOCYTE % (test code 0.3 % 0.0-2.0 N = IG%) LYMPHOCYTE % (test code = LY%) 20.6 % 20.5-45.5 N MONOCYTE % (test code = MO%) 6.0 % 5.5-11.7 N EOSINOPHIL % (test code = EO%) 0.9 % 0.9-2.9 N BASOPHIL % (test code = BA%) 0.4 % 0.2-1.0 N NUCLEATED RBC % (test code = 0.0 % 0-1.0 N NRBC%) NEUTROPHIL # (test code = NT#) 5.35 K/mm3 2.2-4.8 H LYMPHOCYTE # (test code = LY#) 1.54 K/mm3 1.3-2.9 N MONOCYTE # (test code = MO#) 0.45 K/mm3 0.3-0.8 N EOSINOPHIL # (test code = EO#) 0.07 K/MM3 0.0-0.2 N BASOPHIL # (test code = BA#) 0.03 K/mm3 0.0-0.1 N - CTA CHEST FOR [id number] 12:50:00 [facility] 1995 Sex: FPatient Name: SEBAS LOU Unit No: [id number] EXAMS: CPT: [id number] [place] [address] CTA CHEST WITH CONTRAST: INDICATIONS:Chest pain. Shortness of breath. COMPARISON: None available TECHNIQUE: Axial CT chest with IV contrast was performed. Coronal and sagittal reformats reconstructed. Bolus tracking series followed by contrast-enhanced CT. Data set analyzed on a 3-D workstation with image post processing. CT radiation dose optimization is achieved for this examination by the use of a CT protocol in accordance with ACR practice standards and adherence to functional consultant's recommendations. Contrast: 100cc Isovue-300. Total DPL: 768.81mGy*cm. FINDINGS: Unremarkable thyroid. No enlarged supraclavicular oraxillary lymph node. The visualized central airway is unremarkable. No hilar or mediastinal lymphadenopathy. Cardiac size is normal. No coronary calcifications. The lungs are clear of infiltrates. No pleural effusion, masses, pneumothorax or consolidation. The pulmonary artery are opacified and no pulmonary emboli seen. The thoracic aorta is of normal caliber without dissection or aneurysm. A 1.1 cmfat-containing left adrenal nodule suggestive of an adrenal myelolipoma. IMPRESSION: No pulmonary emboli. No acute lung infiltrate. No acute abnormality within the chest. at 1250 Reported and signed by: Rich Saab MD CC: Bonita Mathis MDTechnologist: Flora Son CTDI: 20.17 DLP: 768.81 Trscr Dt/Tm: 04/11/2022 (1250) by:[email or web address] Orig Print D/T: S: 04/11/2022 (8563) BATCH NO: N/A Name: SEBAS LOU [facility] [place] Phys: Bonita Strickland [address] [facility] 1995 Age: 26 Sex: F Thierno Bauer Loc: [facility] Exam Date: 04/11/2022 Status: REG ER PH: FAX: PAGE 1 Signed ReportCREATININE W-GFR [id number] 12:01:00 Test Item Value Reference Range Interpretation Comments CREATININE POC (test 0.74 mg/dL 0.6-1.3 N code = CREATP) GLOMERULAR > 60 >60 THE STAT SENSOR DEVICE FILTRATION RATE POC USES THE MDRD EQUATION (test code = GFRP) FOR CALCU LATING THE eGFR USEDIN RAD IOLOGY. THIS OVERRIDES THE CG (COCKCROFT GABE T) EQUATION USED I N [facility].The Gl omerular Filtration Rate is a calculated parameterbased on serum Creatinine, pat ient age and sex. GFR va luesless than 60 mL/min/ 1.73 square meters a re indicative ofCh ronic Kidney Disease. Values less than 15 mL/min/1.73squa re meters indicate Kidney failure. The calculation for GFR is based on the CK D-EPI (2020) calculat ion. This formulais race indifferent and is the recommended for erika for GFRby the Natio nal Kidney Foundati on for Adults.The GFR will not calculate if th e sex is unknown or if thepatient's ag e is <18 years.Previousl y reported result : 113 Edited by: [facility] E on 04/11/22:1201~~ Corrected Repor t ~~Reason (requi red):[] - XR CHEST 2 [id number] 10:56:00 [facility] : 1995 Sex: FPatient Name: SEBAS LOU Unit No: [id number] EXAMS: CPT: [id number] XR CHEST 2 V [id number] EXAM: XR CHEST 2 VIEWS DATE: 04/11/2022 10:30 AM INDICATION: Chest pain x2 weeks COMPARISON: Chest radiograph on 10/19/2020. TECHNIQUE: PA and lateral chest radiographs. FINDINGS: Lines, tubes and hardware: None. Lungs and pleura: Pulmonary vascularity is normal. The lungs are clear. The costophrenic sulci are sharp without effusion. No pneumothorax is identified. Heart and mediastinum: The heart size is normal. The mediastinal contours are normal. Bones and soft tissues: No acute abnormality. IMPRESSION: No acute cardiopulmonary abnormalities. at 1056 Reported and signed by: JAKE RESENDIZ M.D. CC: GENERIC FOR ED EDDOC Technologist: CHUCK STEPHENS Fluoro Time: DAP (Gy m2): Air Kerma (mGy): Trscr Dt/Tm: 04/11/2022 (1056) by:[email or web address] Orig Print D/T: S: 04/11/2022 (1059) BATCH NO: N/A Name: SEBAS LOU Phys: EDDOC - EDDOC, GENERIC FOR EDM [address] : 1995 Age: 26 Sex: F Thierno Bauer Loc: T.ERS Exam Date: 04/11/2022 Status: REG ER PH: FAX: PAGE 1 Signed ReportUR HCG [id number] 01:55:00 Test Item Value Reference Range Interpretation Comments UR HCG QUAL (test code = HCGQLU) NEGATIVE NEGATIVE URINALYSIS [id number] 01:54:00 Test Item Value Reference Range Interpretation Comments UA COLOR (test code = Colorless YELLOW COLU) UA APPEARANCE (test CLEAR CLEAR code = APPU) UA GLUCOSE DIPSTICK NEG MG/DL NEGATIVE (test code = DGLUU) UA BILIRUBIN DIPSTICK NEG NEGATIVE (test code = BILU) UA KETONE DIPSTICK NEG MG/DL NEGATIVE (test code = KETU) UA SPECIFIC GRAVITY 1.002 1.000-1.030 (test code = SGU) UA BLOOD DIPSTICK NEG NEGATIVE (test code = TYRESE) UA PH DIPSTICK (test 6.5 4.5-8.5 code = FAYE) UA PROTEIN DIPSTICK NEG MG/DL NEGATIVE (test code = PROU) UA UROBILINOGEN NORMAL EU/dL See_Comment [Automated message] DIPSTICK (test code = The sy stem which URO) generated this result transmit josey reference range : <=1.0. The refe rence range was not u sed to interpret th is result as normal/abnormal . UA NITRITE DIPSTICK NEG NEGATIVE (test code = CLAUDIO) UA LEUKOCYTE ESTERASE 2+ NEGATIVE A DIPSTICK (test code = LEUU) UA WBC (test code = 3-5 /HPF 0-3 A WBCU) UA RBC (test code = 0-3 /HPF 0-3 RBCU) UA BACTERIA (test 1+ /HPF NONE SEEN A code = BACU) UA SQUAMOUS CELLS RARE /HPF NONE-FEW (test code = SQU) - US PELVIC [id number] 01:19:00 [facility] : 1995 Sex: FPatient Name: SEBAS LOU Unit No: [id number] EXAMS: CPT: [id number] US PELVIC COMPLETE 78832 EXAMINATION: PELVIC ULTRASOUND HISTORY: Left lower quadrant pain TECHNIQUE: Real-time grayscale ultrasound imaging of the pelvis utilizing only transabdominal technique. COMPARISON: None FINDINGS: Uterus anteverted in configuration, measures 6.6 x 3.2 x 6.0 cm. Endometrial thickness measures 0.76 cm. Right ovary not seen. Left ovary within normal limits. Overall limited evaluation secondary overlying bowel gas. IMPRESSION: No significant sonographic abnormality given limitations of examination. at 0119 Reported and signed by: Dylon Cueto MD CC: Damian Whitt MD Technologist: Sherin Ramachandran Probe: Trscr Dt/Tm: 10/20/2020 (0119) by:[email or web address] Orig Print D/T: S: 10/20/2020 (0122) BATCH NO: N/A Name: SEBAS LOU [facility] Phys: [id number] - Damian Whitt MD [address] : 1995 Age: 24 Sex: F Thierno Bauer Loc: T.ERS Exam Date: 10/20/2020 Status: REG ER PH: FAX: PAGE 1 Signed Report- XR CHEST 1 [id number] 00:12:00 [facility] : 1995 Sex: FPatient Name: SEBAS LOU Unit No: [id number] EXAMS: CPT: [id number] XR CHEST 1 V 17351 CHEST 1 VIEW CLINICAL HISTORY: Chest pain COMPARISON: None. A single frontal view of the chest is submitted. FINDINGS: The cardiac silhouette is normal in size. Vascularity appears normal. The lungs are clear. No pleural effusion or pneumothorax is seen. No osseous abnormalities are seen. IMPRESSION: Negative chest radiograph. at 0012 Reported and signed by: Meliza Escobar MD CC: Damian Whitt MD Technologist: Norah Senior Time: DAP (Gy m2): Air Kerma (mGy): Trscr Dt/Tm: 10/20/2020 (0012) by:[email or web address] Orig Print D/T: S: 10/20/2020 (0015) BATCH NO: N/A [id number] - Damian Whitt MD [address] [facility] : 1995 Age: 24 Sex: F Thierno Bauer Loc: T.ERS Exam Date: 10/19/2020 Status: REG ER PH: FAX: PAGE 1 Signed ReportUR HCG [id number] 23:41:00 Test Item Value Reference Range Interpretation Comments UR HCG QUAL (test code = HCGQLU) NEGATIVE NEGATIVE URINALYSIS [id number] 23:41:00 Test Item Value Reference Range Interpretation Comments UA COLOR (test code = Light-Yellow YELLOW COLU) UA APPEARANCE (test CLEAR CLEAR code = APPU) UA GLUCOSE DIPSTICK NEG MG/DL NEGATIVE (test code = DGLUU) UA BILIRUBIN DIPSTICK NEG NEGATIVE (test code = BILU) UA KETONE DIPSTICK NEG MG/DL NEGATIVE (test code = KETU) UA SPECIFIC GRAVITY 1.020 1.000-1.030 (test code = SGU) UA BLOOD DIPSTICK NEG NEGATIVE (test code = TYRESE) UA PH DIPSTICK (test 6.0 4.5-8.5 code = FAYE) UA PROTEIN DIPSTICK NEG MG/DL NEGATIVE (test code = PROU) UA UROBILINOGEN NORMAL EU/dL See_Comment [Automated DIPSTICK (test code = messag e] The system URO) which generated this result transmitted reference range : <=1.0. The reference range was not used to interpret this result as normal/abnormal . UA NITRITE DIPSTICK NEG NEGATIVE (test code = CLAUDIO) UA LEUKOCYTE ESTERASE NEG NEGATIVE DIPSTICK (test code = LEUU) UA WBC (test code = 0-3 /HPF 0-3 WBCU) UA RBC (test code = 0-3 /HPF 0-3 RBCU) UA BACTERIA (test NONE SEEN /HPF NONE SEEN code = BACU) UA SQUAMOUS CELLS RARE /HPF NONE-FEW (test code = SQU) UA MUCUS (test code = RARE /LPF NONE-FEW MUCU) COMPREHENSIVE METABOLIC [id number] 23:31:00 Test Item Value Reference Range Interpretation Comments SODIUM (test code 139 mmol/L 136-145 N = NA) POTASSIUM (test 3.6 MMOL/L 3.6-5.2 N code = K) CHLORIDE (test 104 MMOL/L 98-110 N code = CL) CARBON DIOXIDE 27 mEq/L 24-32 N (test code = CO2) GLUCOSE (test code 104 mg/dL 70-110 N = GLU) BLOOD UREA 20 mg/dL 7-18 H NITROGEN (test code = BUN) GLOMERULAR >=60 max >60 The estimated FILTRATION RATE estimate glomerular f iltration (test code = GFR) rate is co mputed usingpatient ra ce, age (>18), sex, and serum creatinin e. If anyof the neede d data elements are mi ssing the Laboratory cannot compute an fatuma mation of the glomerul ar filtration rate . CREATININE (test 0.94 mg/dL 0.60-1.30 N code = CREAT) TOTAL PROTEIN 7.5 g/dL 6.0-8.3 N (test code = PROT) ALBUMIN (test code 4.2 g/dL 3.2-5.5 N = ALB) CALCIUM (test code 9.1 mg/dL 8.6-10.3 N = CA) BILIRUBIN TOTAL 0.6 mg/dL 0.2-1.0 N F-faibgq-y-b enzoquino (test code = BILT) ne imine (NAPQI), a metabolite ofacetaminophen (paracetamol), may generate errone ously lowresults in s amples for patients th at have taken toxi c dosesof acetami nophen (paracetamol). SGOT/AST (test 26 UNITS/L 10-42 N code = AST) SGPT/ALT (test 29 UNITS/L 10-40 N code = ALT) ALKALINE 95 UNITS/L 34-104 N PHOSPHATASE (test code = ALKP) COMPREHENSIVE METABOLIC [id number] 23:24:00 Test Item Value Reference Range Interpretation Comments SODIUM (test code = NA) mmol/L 136-145 POTASSIUM (test code = K) 3.6 MMOL/L 3.6-5.2 N CHLORIDE (test code = CL) MMOL/L 98-110 CARBON DIOXIDE (test code = CO2) mEq/L 24-32 GLUCOSE (test code = GLU) mg/dL 70-110 BLOOD UREA NITROGEN (test code = mg/dL 7-18 BUN) GLOMERULAR FILTRATION RATE (test >60 code = GFR) CREATININE (test code = CREAT) mg/dL 0.60-1.30 TOTAL PROTEIN (test code = PROT) g/dL 6.0-8.3 ALBUMIN (test code = ALB) g/dL 3.2-5.5 CALCIUM (test code = CA) mg/dL 8.6-10.3 BILIRUBIN TOTAL (test code = BILT) mg/dL 0.2-1.0 SGOT/AST (test code = AST) UNITS/L 10-42 SGPT/ALT (test code = ALT) UNITS/L 10-40 ALKALINE PHOSPHATASE (test code = UNITS/L 34-104 ALKP) CBC W/AUTO [id number] 23:21:00 Test Item Value Reference Range Interpretation Comments WHITE BLOOD CELL (test code = WBC) 9.14 K/mm3 5.0-12.0 N RED BLOOD CELL (test code = RBC) 4.66 M/mm3 4.20-5.40 N HEMOGLOBIN (test code = HGB) 13.3 G/DL 12.0-16.0 N HEMATOCRIT (test code = HCT) 40.5 % 34.9-44.5 N MEAN CELL VOLUME (test code = MCV) 87 fL 81-99 N MEAN CELL HGB (test code = MCH) 28.5 PGM 27-31 N MEAN CELL HGB CONCENTRATION (test 32.8 G/DL 33-37 L code = MCHC) RED CELL DISTRIBUTION WIDTH (test 12.4 % 11.6-16.2 N code = RDW) PLATELET COUNT (test code = PLT) 288 K/mm3 130-400 N MEAN PLATELET VOLUME (test code = 10.2 fl 7.4-10.4 N MPV) NEUTROPHIL % (test code = NT%) 66.3 % 43-65 H IMMATURE GRANULOCYTE % (test code 0.2 % 0.0-2.0 N = IG%) LYMPHOCYTE % (test code = LY%) 24.9 % 20.5-45.5 N MONOCYTE % (test code = MO%) 6.3 % 5.5-11.7 N EOSINOPHIL % (test code = EO%) 1.9 % 0.9-2.9 N BASOPHIL % (test code = BA%) 0.4 % 0.2-1.0 N NUCLEATED RBC % (test code = 0.0 % 0-1.0 N NRBC%) NEUTROPHIL # (test code = NT#) 6.05 K/mm3 2.2-4.8 H LYMPHOCYTE # (test code = LY#) 2.28 K/mm3 1.3-2.9 N MONOCYTE # (test code = MO#) 0.58 K/mm3 0.3-0.8 N EOSINOPHIL # (test code = EO#) 0.17 K/MM3 0.0-0.2 N BASOPHIL # (test code = BA#) 0.04 K/mm3 0.0-0.1 N RHEUMATOID FACTOR [id number] 13:09:00 Test Item Value Reference Range Interpretation Comments RHEUMATOID FACTOR SCREEN (test code NEGATIVE NEGATIVE = RA) ANTINUCLEAR ANTIBODIES [id number] 13:09:00 Test Item Value Reference Range Interpretation Comments BETITO SCREEN (test code Negative () Negat fashan <1:80 = ANASCR) Borderline 1:80 Positive >1:80P erformed At: [facility] [id number] [place], [place] [id number] Kevin Cohen MD Ph:[phone] RHEUMATOID FACTOR [id number] 23:08:00 Test Item Value Reference Range Interpretation Comments RHEUMATOID FACTOR SCREEN (test code NEGATIVE NEGATIVE = RA) ANTINUCLEAR ANTIBODIES [id number] 23:08:00 Test Item Value Reference Range Interpretation Comments BETITO SCREEN (test code = ANASCR) COMPREHENSIVE METABOLIC [id number] 15:35:00 Test Item Value Reference Range Interpretation Comments SODIUM (test code = 139 mmol/L 135-145 N NA) POTASSIUM (test 4.3 mmol/L 3.5-5.1 N code = K) CHLORIDE (test code 108 mmol/L 98-107 H = CL) CARBON DIOXIDE 30 mmol/L 21-32 N (test code = CO2) GLUCOSE (test code 80 mg/dL 65-99 N = GLU) BLOOD UREA NITROGEN 11 mg/dL 4-23 N (test code = BUN) GLOMERULAR >=60 max 60-115 N The estimated FILTRATION RATE estimate ml/min glomerula r (test code = GFR) filtration rate is computed usingpatient ra ce, age (>18), sex, and serum creatinin e. If anyof the ne eded data elements a re missing the Laboratory adonay ot compute an estimation of t he glomerular filtration rate . CREATININE (test 0.9 mg/dL 0.6-1.5 N code = CREAT) BUN/CREATININE 12.2 12.0-20.0 N RATIO (test code = BUN/CREA) TOTAL PROTEIN (test 7.4 g/dL 6.4-8.2 N code = PROT) ALBUMIN (test code 4.1 g/dL 3.4-5.0 N = ALB) CALCIUM (test code 9.0 mg/dL 8.5-10.1 N = CA) BILIRUBIN TOTAL 0.6 mg/dL 0.2-1.2 N (test code = BILT) SGOT/AST (test code 26 U/L 15-37 N = AST) SGPT/ALT (test code 48 U/L 6-50 N = ALT) ALKALINE 119 U/L 45-117 H PHOSPHATASE (test code = ALKP) LIPID PROFILE (CORONARY RISK)2019-03-29 15:35:00 Test Item Value Reference Range Interpretation Comments TRIGLYCERIDES (test code = TRIG) 80 mg/dL 0-149 N CHOLESTEROL (test code = CHOL) 173 mg/dL 0-200 N CHOLESTEROL/HDL RATIO (test code = 3 1-6 N CHOLHDL) HDL CHOLESTEROL (test code = HDL) 54 mg/dL 40-60 N LIPOPROTEIN LDL (test code = LDLC) 99 mg/dL 0-100 N VITAMIN [id number] 15:35:00 Test Item Value Reference Range Interpretation Comments VITAMIN B12 (test code = VITB12) 370 pg/mL 254-1320 N T3 (TOTAL)2019-03-29 15:35:00 Test Item Value Reference Range Interpretation Comments T3 (TOTAL) (test code = T3T) 1.08 ng/mL 0.6-1.81 N T3 [id number] 15:35:00 Test Item Value Reference Range Interpretation Comments T3 UPTAKE (test code = T3UP) 35 % 31-39 N T4 (THYROXINE)2019-03-29 15:35:00 Test Item Value Reference Range Interpretation Comments T4 (THYROXINE) (test code = T4) 8.4 ug/dL 4.7-11.4 N THYROID STIMULATING [id number] 15:35:00 Test Item Value Reference Range Interpretation Comments THYROID STIMULATING HORMONE (test 1.14 mIU/mL 0.36-3.74 N code = TSH) VITAMIN D [id number] 15:35:00 Test Item Value Reference Range Interpretation Comments VITAMIN D 25-HYDROXY 25 ng/mL 30-100 L Level n g/mLDeficient (test code = VITD25) <20Insu fficient 20-29Optimal le vels 30-100 C REACTIVE [id number] 15:35:00 Test Item Value Reference Range Interpretation Comments C REACTIVE PROTEIN (test code = 0.29 mg/dL 0.00-0.33 N CRP) COMPREHENSIVE METABOLIC [id number] 11:36:00 Test Item Value Reference Range Interpretation Comments SODIUM (test code = 139 mmol/L 135-145 N NA) POTASSIUM (test 4.3 mmol/L 3.5-5.1 N code = K) CHLORIDE (test code 108 mmol/L 98-107 H = CL) CARBON DIOXIDE 30 mmol/L 21-32 N (test code = CO2) GLUCOSE (test code 80 mg/dL 65-99 N = GLU) BLOOD UREA NITROGEN 11 mg/dL 4-23 N (test code = BUN) GLOMERULAR >=60 max 60-115 N The estimated FILTRATION RATE estimate ml/min glomerula r (test code = GFR) filtration rate is computed usingpatient ra ce, age (>18), sex, and serum creatinin e. If anyof the ne eded data elements a re missing the Laboratory adonay ot compute an estimation of t he glomerular filtration rate . CREATININE (test 0.9 mg/dL 0.6-1.5 N code = CREAT) BUN/CREATININE 12.2 12.0-20.0 N RATIO (test code = BUN/CREA) TOTAL PROTEIN (test 7.4 g/dL 6.4-8.2 N code = PROT) ALBUMIN (test code 4.1 g/dL 3.4-5.0 N = ALB) CALCIUM (test code 9.0 mg/dL 8.5-10.1 N = CA) BILIRUBIN TOTAL 0.6 mg/dL 0.2-1.2 N (test code = BILT) SGOT/AST (test code 26 U/L 15-37 N = AST) SGPT/ALT (test code 48 U/L 6-50 N = ALT) ALKALINE 119 U/L 45-117 H PHOSPHATASE (test code = ALKP) LIPID PROFILE (CORONARY RISK)2019-03-29 11:36:00 Test Item Value Reference Range Interpretation Comments TRIGLYCERIDES (test code = TRIG) 80 mg/dL 0-149 N CHOLESTEROL (test code = CHOL) 173 mg/dL 0-200 N CHOLESTEROL/HDL RATIO (test code = 3 1-6 N CHOLHDL) HDL CHOLESTEROL (test code = HDL) 54 mg/dL 40-60 N LIPOPROTEIN LDL (test code = LDLC) 99 mg/dL 0-100 N VITAMIN [id number] 11:36:00 Test Item Value Reference Range Interpretation Comments VITAMIN B12 (test code = VITB12) 370 pg/mL 254-1320 N T3 (TOTAL)2019-03-29 11:36:00 Test Item Value Reference Range Interpretation Comments T3 (TOTAL) (test code = T3T) ng/mL 0.6-1.81 T3 [id number] 11:36:00 Test Item Value Reference Range Interpretation Comments T3 UPTAKE (test code = T3UP) 35 % 31-39 N T4 (THYROXINE)2019-03-29 11:36:00 Test Item Value Reference Range Interpretation Comments T4 (THYROXINE) (test code = T4) 8.4 ug/dL 4.7-11.4 N THYROID STIMULATING [id number] 11:36:00 Test Item Value Reference Range Interpretation Comments THYROID STIMULATING HORMONE (test 1.14 mIU/mL 0.36-3.74 N code = TSH) VITAMIN D [id number] 11:36:00 Test Item Value Reference Range Interpretation Comments VITAMIN D 25-HYDROXY (test code = ng/mL 30-100 VITD25) C REACTIVE [id number] 11:36:00 Test Item Value Reference Range Interpretation Comments C REACTIVE PROTEIN (test code = 0.29 mg/dL 0.00-0.33 N CRP) URINALYSIS [id number] 11:00:00 Test Item Value Reference Range Interpretation Comments UA COLOR (test code = COLU) YELLOW YELLOW UA APPEARANCE (test code = CLEAR CLEAR APPU) UA GLUCOSE DIPSTICK (test NEGATIVE NEGATIVE code = DGLUU) UA BILIRUBIN DIPSTICK (test NEGATIVE NEGATIVE code = BILU) UA KETONE DIPSTICK (test code NEGATIVE NEGATIVE = KETU) UA SPECIFIC GRAVITY (test 1.014 1.005-1.025 N code = SGU) UA BLOOD DIPSTICK (test code NEGATIVE NEGATIVE = TYRESE) UA PH DIPSTICK (test code = 7 5.0-8.0 FAYE) UA PROTEIN DIPSTICK (test NEGATIVE NEGATIVE code = PROU) UA UROBILINOGEN DIPSTICK Negative EU/dL 0.1-0.2 (test code = URO) UA NITRITE DIPSTICK (test NEGATIVE NEGATIVE code = CLAUDIO) UA LEUKOCYTE ESTERASE TRACE NEGATIVE A DIPSTICK (test code = LEUU) UA WBC (test code = WBCU) 0-2 /hpf 0-3 UA RBC (test code = RBCU) 0-2 /hpf 0-3 UA EPITHELIAL CELLS (test RARE /lpf code = EPIU) UA BACTERIA (test code = RARE /HPF NEGATIVE BACU) UA MUCUS (test code = MUCU) OCCASIONAL /lpf CBC W/AUTO [id number] 10:49:00 Test Item Value Reference Range Interpretation Comments WHITE BLOOD CELL (test code = 9.7 10 3/uL 4.5-11.0 N WBC) RED BLOOD CELL (test code = 5.25 10 6/uL 3.50-5.50 N RBC) HEMOGLOBIN (test code = HGB) 14.7 g/dL 12.0-16.0 N HEMATOCRIT (test code = HCT) 45.6 % 37.0-55.0 N MEAN CELL VOLUME (test code = 87 fL 81-102 N MCV) MEAN CELL HGB (test code = 28.0 pg 26.0-34.0 N MCH) MEAN CELL HGB CONCENTRATION 32.2 % 31.0-37.0 N (test code = MCHC) RED CELL DISTRIBUTION WIDTH 12.2 % 11.5-14.5 N (test code = RDW) PLATELET COUNT (test code = 289 10 3/uL 150-400 N PLT) MEAN PLATELET VOLUME (test 10.0 fl 9.0-12.6 N code = MPV) NEUTROPHIL % (test code = NT%) 73.1 % 33.0-76.0 N IMMATURE GRANULOCYTE % (test 0.3 % 0.0-1.0 N code = IG%) LYMPHOCYTE % (test code = LY%) 19.2 % 14.0-56.4 N MONOCYTE % (test code = MO%) 6.3 % 0.0-12.9 N EOSINOPHIL % (test code = EO%) 0.7 % 0.0-7.0 N BASOPHIL % (test code = BA%) 0.4 % 0-2.0 N NEUTROPHIL # (test code = NT#) 7.05 10 3/uL 1.5-7.0 H IMMATURE GRANULOCYTE # (test 0.030 x10 3/uL 0.000-0.100 N code = IG#) LYMPHOCYTE # (test code = LY#) 1.85 10 3/uL 1.50-4.00 N MONOCYTE # (test code = MO#) 0.61 10 3/uL 0.20-0.80 N EOSINOPHIL # (test code = EO#) 0.07 10 3/uL 0.0-0.5 N BASOPHIL # (test code = BA#) 0.04 10 3/uL 0.0-0.1 N MANUAL DIFF REQUIRED (test NO code = MDIFF) TROPONIN [id number] 01:47:00 Test Item Value Reference Range Interpretation Comments TROPONIN I (BEAKER) (test code = 397) < ng/mL 0.00-0.03 Troponin I (TnI) levels must be interpreted in the context of the presenting symptoms and the clinical findings. Elevated TnI levels indicate myocardial damage, but are not specific for ischemic heart disease. Elevated TnI levels are seen in patients with other cardiac conditions (including myocarditis and congestive heart failure), and slight TnI elevations occur in patients with other conditions, including sepsis, renal failure, acidosis, acute neurological disease, and persistent tachyarrhythmia.B-TYPE NATRIURETIC FACTOR (BNP) 2017-07-07 01:29:00 Test Item Value Reference Range Interpretation Comments B-TYPE NATRIURETIC PEPTIDE (BEAKER) 2 pg/mL 0-100 (test code = 700) [id number] 01:23:00 Test Item Value Reference Range Interpretation Comments D-DIMER QUANTITATIVE (BEAKER) < MG/L FEU <0.50 (test code = 671) REGARDING D-DIMER RESULTS: The 98% NPV (Negative Predictive Value) for DVT/PE exclusion is 0.50 mg/LFEU as suggested by the functional consultant and as approved by the FDA.COMPREHENSIVE METABOLIC [id number] 01:22:00 Test Item Value Reference Range Interpretation Comments TOTAL PROTEIN 7.2 gm/dL 6.0-8.5 (BEAKER) (test code = 770) ALBUMIN (BEAKER) 4.4 g/dL 3.5-5.0 (test code = 1145) ALKALINE PHOSPHATASE 100 U/L 30-115 (BEAKER) (test code = 346) BILIRUBIN TOTAL 0.4 mg/dL 0.1-1.2 (BEAKER) (test code = 377) SODIUM (BEAKER) (test 140 meq/L 135-148 code = 381) POTASSIUM (BEAKER) 3.7 meq/L 3.6-5.5 (test code = 379) CHLORIDE (BEAKER) 105 meq/L 98-106 (test code = 382) CO2 (BEAKER) (test 27 meq/L 20-29 code = 355) BLOOD UREA NITROGEN 16 mg/dL 10-26 (BEAKER) (test code = 354) CREATININE (BEAKER) 0.90 mg/dL 0.50-1.20 (test code = 358) GLUCOSE RANDOM 89 mg/dL 70-110 (BEAKER) (test code = 652) CALCIUM (BEAKER) 9.4 mg/dL 8.5-10.5 (test code = 697) AST (SGOT) (BEAKER) 27 U/L 5-40 (test code = 353) ALT (SGPT) (BEAKER) 33 U/L 5-50 (test code = 347) EGFR (BEAKER) (test 78 mL/min/1.73 ESTIMA JOSEY GFR IS code = 1092) sq m NOT ACCURATE CREATININE CLEARANCE IN PREDICTING GLOMERULAR FILTRATION RATE . ESTIMATED GFR I S NOT APPLICABLE FOR DIALYSIS PATIEN TS. RAPID INFLUENZA A&B [id number] 01:22:00 Test Item Value Reference Range Interpretation Comments RAPID INFLUENZA A AG (BEAKER) Negative Negative, Inconclusive (test code = 1622) RAPID INFLUENZA B AG (BEAKER) Negative Negative, Inconclusive (test code = 1623) URINALYSIS W/ REFLEX URINE [id number] 01:10:00 Test Item Value Reference Range Interpretation Comments COLOR (BEAKER) (test code = Yellow 470) CLARITY (BEAKER) (test code = Clear 469) SPECIFIC GRAVITY UA (BEAKER) 1.010 1.001-1.035 (test code = 468) PH UA (BEAKER) (test code = 7.0 5.0-8.0 467) PROTEIN UA (BEAKER) (test code Negative Negative = 464) GLUCOSE UA (BEAKER) (test code Negative Negative = 365) KETONES UA (BEAKER) (test code Negative Negative = 371) BILIRUBIN UA (BEAKER) (test Negative Negative code = 462) BLOOD UA (BEAKER) (test code = Negative Negative 461) NITRITE UA (BEAKER) (test code Negative Negative = 465) LEUKOCYTE ESTERASE UA (BEAKER) Negative Negative (test code = 466) UROBILINOGEN UA (BEAKER) (test 0.2 mg/dL 0.2-1.0 code = 463) BACTERIA (BEAKER) (test code = None Seen 517) RBC UA-MANUAL (BEAKER) (test <5 /HPF code = 1659) WBC UA-MANUAL (BEAKER) (test None Seen /HPF code = 1661) SQUAMOUS EPITHELIAL MANUAL <5 /HPF (BEAKER) (test code = 1663) SOURCE(BEAKER) (test code = 2795) SCREEN, [id number] 01:03:00 Test Item Value Reference Range Interpretation Comments TEST URINE (BEAKER) (test Negative code = 583) CBC W/PLT COUNT & AUTO [id number] 00:58:00 Test Item Value Reference Range Interpretation Comments WHITE BLOOD CELL COUNT (BEAKER) 10.2 K/ L 4.0-10.0 H (test code = 775) RED BLOOD CELL COUNT (BEAKER) 4.85 M/ L 4.00-5.00 (test code = 761) HEMOGLOBIN (BEAKER) (test code = 14.3 GM/DL 12.0-15.0 410) HEMATOCRIT (BEAKER) (test code = 42.3 % 36.0-45.0 411) MEAN CORPUSCULAR VOLUME (BEAKER) 87.2 fL 82.0-99.0 (test code = 753) MEAN CORPUSCULAR HEMOGLOBIN 29.5 pg 27.0-33.0 (BEAKER) (test code = 751) MEAN CORPUSCULAR HEMOGLOBIN CONC 33.8 GM/DL 32.0-36.0 (BEAKER) (test code = 752) RED CELL DISTRIBUTION WIDTH 12.5 % 10.3-14.2 (BEAKER) (test code = 412) PLATELET COUNT (BEAKER) (test 243 K/CU MM 150-430 code = 756) MEAN PLATELET VOLUME (BEAKER) 10.3 fL 6.5-10.5 (test code = 754) NUCLEATED RED BLOOD CELLS 0 /100 WBC 0-0 (BEAKER) (test code = 413) NEUTROPHILS RELATIVE PERCENT 74 % (BEAKER) (test code = 429) LYMPHOCYTES RELATIVE PERCENT 18 % (BEAKER) (test code = 430) MONOCYTES RELATIVE PERCENT 7 % (BEAKER) (test code = 431) EOSINOPHILS RELATIVE PERCENT 1 % (BEAKER) (test code = 432) BASOPHILS RELATIVE PERCENT 0 % (BEAKER) (test code = 437) NEUTROPHILS ABSOLUTE COUNT 7.59 K/ L 1.80-8.00 (BEAKER) (test code = 670) LYMPHOCYTES ABSOLUTE COUNT 1.78 K/ L 1.48-4.50 (BEAKER) (test code = 414) MONOCYTES ABSOLUTE COUNT (BEAKER) 0.66 K/ L 0.00-1.30 (test code = 415) EOSINOPHILS ABSOLUTE COUNT 0.13 K/ L 0.00-0.50 (BEAKER) (test code = 416) BASOPHILS ABSOLUTE COUNT (BEAKER) 0.03 K/ L 0.00-0.20 (test code = 417) RAD, CHEST, 2 [id number] 00:35:00Reason for exam:->CHEST PAINFINAL REPORT INDICATION: CHEST PAIN COMPARISON: None TECHNIQUE: Frontal and lateral views of the chest. FINDINGS: Lungs and pleura: Clear lungs. No effusion.Heart and mediastinum: Normal heart size. Unremarkable mediastinal contours.Osseous structures: No acute abnormality.Additional findings: None. IMPRESSION: No acute intrathoracic abnormality. Signed: JR Mcghee Robert MDReport Verified Date/Time: 07/07/2017 00:35:47 Reading Location: [facility] C013Y CT Body Reading Room
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
[2022-08-01] MEDS ORDERED: HYDROCODONE/APAP 5/325 MG TAB ONE (04:31)
[2022-08-01] MEDS ORDERED: predniSONE 20 MG TAB ONE (04:31)
[2022-08-01 04:58] VITALS: TEMP 97.6
[2022-08-01 04:59] VITALS: BP 128/87; O2SAT 99
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
== END 2022-08-01 04:53 | disposition home or self-care (01) ==
LOC: ER 02:10
DX: S09.90XA Unspecified injury of head, initial encounter (principal)
CPT/HCPCS: 70450; 70486; 76377; 99283; J7512

== ENCOUNTER 2022-10-25 21:24 | Emergency (ER) | payer SELFPAY ==
--- OUTSIDE RECORDS SUMMARY | 2022-10-25 21:31 | XMS REPORT | Continuity of Care Document ---
:1995 Author Organization [facility] Address [address] [place] [address] Care Team Providers Name Role Phone Asked, [...] DA Active [place] [facility]ES [facility] ins 10-19 [place] 00:[facility]: Health 00 are [place] Sulfa DA Active [place] [facility]ES [facility] (Sulfona 10-19 [facility] 00:00: [facility] Antibiot 00 are ics) [place] Penicill DA Active [place] [facility] ins 10-19 [place] 00:[facility]: Health 00 are [place] Sulfa DA Active [place] [facility] (Sulfona 10-19 [facility] 00:00: [facility] Antibiot 00 are ics) [place] Penicill Propensi Active [facility] ty [...] Start Date Stop Date Quantity Comments Source Gender [facility] History of tobacco Cigarette Smoker [facility] use [facility] Cigarettes [facility] 2017[facility]07[facility]07 [facility] day[facility] - Reported Cigarette 2017-07-07 2017-07-07 [facility] pack-years 00:00:00 00:00:[address] [facility] Tobacco use and 2017-07-07 2017-07-07 Smokeless [facility] Leah kes exposure 00:00:00 00:00:00 tobacco non-user [facility] Alcohol intake 2017-07-06 2017-07-06 Current drinker [facility] 00:00:00 00:00:00 of [facility] (finding) History of Social 2017-07-06 2017-07-[address] function 00:00:00 00:00:00 Hospital Sex Assigned At [birth year] [facility] Smoking Status Start Date Stop Date Source Smokes tobacco daily 2017-07-07 00:00:00 [facility] Medications Ordered Filled Start Stop Current Ordering [...] Planned Date Details Comments Source Future Scheduled 2022-10-24 COVID-[address] [facility] Test 07:41:16 (#1) [code = COVID-19 VACCINE (#1)] Future Scheduled 2022-10-24 [facility] Test 07:41:16 malignant neoplasm of cervix (procedure) [code = 933512658] Future Scheduled 2022-10-24 INFLUENZA VACCINE [facility] Test 07:41:16 [code = INFLUENZA VACCINE] Future Scheduled 2022-04-28 [facility] Test 22:38:56 malignant neoplasm of cervix (procedure) [code = 273649349] Future Scheduled 2022-04-28 [facility]ZA [facility]ACCINE [facility] Test 22:38:56 [code = INFLUENZA VACCINE] Future Scheduled 2022-04-28 COVID-[address] [facility] Test 22:38:56 (#1) [code = COVID-19 VACCINE (#1)] Future Scheduled 2022-04-28 [facility] Test 22:38:56 malignant neoplasm of cervix (procedure) [code = 368686542] Future Scheduled 2022-04-28 [facility]ENZA [facility]ACCINE [facility] Test 22:38:56 [code = INFLUENZA VACCINE] Future Scheduled 2022-04-28 COVID-[address] [facility] Test 22:38:56 (#1) [code = COVID-19 VACCINE (#1)] Future Scheduled 2022-03-14 COVID-[address] [facility] Test 20:18:12 (#1) [code = COVID-19 VACCINE (#1)] Future Scheduled 2022-03-14 [facility] Test 20:18:12 malignant neoplasm of cervix (procedure) [code = 351233678] Future Scheduled 2022-03-14 [facility]ZA [facility]ACCINE [facility] Test 20:18:12 [code = INFLUENZA VACCINE] Encounters Start End Encounter Admission Attending Care Care Encounter Source Date/Time Date/Time Type Type Clinicians Facility Department ID 2021-03-31 Inpatient EM GUY Kenney [id number] [facility] 06:38:[address] are [place] 2022-04-28 2022-04-28 Emergency EM LUISITO Lewis [id number] [facility] 21:44:00 23:51:00 Sandro Lara [facility] are [place] 2022-04-11 2022-04-11 Emergency EM Del, [facility] [id number] [facility] 10:17:00 15:00:00 Bonita Roblero [facility] are [place] 2021-06-03 2021-06-03 Emergency EM Jose Eduardo, [facility] [id number] [facility] 01:34:00 02:16:00 Damian 84 [facility] are [place] 2021-04-01 2021-04-01 Emergency EM Jose Eduardo, [facility] [id number] [facility] 21:40:00 23:14:00 Damian 21 [facility] are [place] 2020-10-19 2020-10-20 Emergency EM Jose Eduardo, [facility] [id number] [facility] 22:38:00 01:57:00 Damian 31 [facility] are [place] Results Test Description Test Time Test Comments Results Result [facility] e Comments - XR CHEST 2 V 2022-04-28 23:08:00 [facility] : 1995 Sex: F Patie nt Name: SEBAS LOU Unit No: [id number] EXAMS: CPT: [id number] XR CHEST 2 V [id number] EXAM: XR CHEST 2 VIEWS DATE: 04/28/2022 [...] (2308) by:[email or web address] Orig Print D/T: S: 04/28/2022 (2629) BATCH NO: N/A Name: SEBAS LOU [facility] [place] Phys: Sandro Taylor MD [address] [facility] : 1995 Age: 26 Sex: F Thierno Bauer Loc: T.ERS Exam Date: 04/28/2022 Status: REG ER PH: FAX: PAGE 1 Signed Report Coronavirus 2019 nCoV Bedside 2022-04-28 23:07:00 Test Item Value Reference Range Interpretation Comme nts Coronavirus 2019 nCoV Negative NEGATIVE TESTI NG COMPLETED WITHIN ONE HOUR - Bedside (test code = DELAY I N REPORTING DUETO ONE TECH WHO [id number]) WAS BUSY IN OOD BANK DEPTTHE ID NOW COVID-19 EUA RODRIGUEZ S NOT BEEN FDA CLEARED ORAPPROVED. IT HAS BEEN AUTHORIZED BY THE FDA UNDER A NEMERGENCY USE AUTHORIZATION F OR USE BY AUTHORIZEDLABOR ATORIES AND PATIENT CARE SETTINGS. THE TEST HAS BEENAUTHORIZED ONLY FOR THE DETECTION OF NUCLEIC ACID [id number], NOT FOR ANY OTHER V IRUSES OR [...] andsymptons con sistent with COVID-19. UR HCG [id number] 22:42:00 Test Item Value Reference Range Interpretation Comments UR HCG QUAL (test code = HCGQLU) NEGATIVE NEGATIVE HCG SERUM [id number] 15:59:00 Test Item Value Reference Range Interpretation Comments HCG SERUM QUAL (test code = HCGQL) NEGATIVE NEGATIVE DATE OF LAST MENSTRUAL PERIOD: 04/10/22B-TYPE NATRIURETIC [id number] 14:01:00 Test Item Value Reference Range Interpretation Comments B-TYPE NATRIURETIC PEPTIDE (test code 5 pg/mL 0-100 N = BNP) [id number] 13:59:00 Test Item Value Reference Range Interpretation Comments TROPONIN-I < 2.5 ng/L 0.0-34.0 N CAUTION: UNITS OF THE (test code = CURRENT TEST ME THODOLOGY TROPI) (ng/L) DIFFERFR OM THE PRIOR TEST METHODOLOG Y (ng/mL) BY A FACTOR OF 100 0.RESULTS FROM DIFFERENT METHODS SHOULD NOT BE C OMPARED TO ONEANOTHER Q UANTITATIVE RESULTS AND URL S MAY VARY BY METHOD. IN OR CARLITA TO DISTINGUISH ACU TE ELEVATIONS OF HIGH [...] ABOVE THE 99THGENDER-SPEC IFIC PERCENTILE. BASIC METABOLIC [id number] 13:58:00 Test Item Value Reference Range Interpretation [...] mg/dL 8.6-10.3 N = CA) LIVER FUNCTION [id number] 13:58:00 Test Item Value Reference Range Interpretation [...] code = 79 U/L 46-116 N ALKP) [id number] 13:58:00 Test Item Value Reference Range Interpretation Comments LIPASE (test code = LIP) 41 U/L 12-53 N PROTHROMBIN [id number] 13:49:00 Test Item Value Reference Range Interpretation Comments PROTHROMBIN TIME 11.9 SECONDS 9.5-12.9 N PATIENT (test code = PTP) INTERNATIONAL NORMAL 1.0 0.85-1.15 N The INR is to be used RATIO (test code = only for monitoring INR) ORAL ANTICOAGULANTTH ERAPY. Indication INR Value1. Prophylaxis/taylor atment of: Venous Thro mbosis, Pulmonary Embol ism 2.0 - 3.02. Pre vention of systemic emb olism from: Tissue he art valves 2.0 - 3. 0 Acute myocardial infa rction (to present sys temic embolism)* 2.0 - 3.0 Valvular heart disease 2.0 - 3.0 Atria l fibrillation 2. 0 - 3.03. Mechanica l prosthetic valv es (high risk) 2.5 - 3.5 * If oral anticoagulant t herapy is elected to preventrecurren t myocardial infa rction, an INR of 2.5-3 .5 isrecommended, consistent with Food and Drug Administrationr ecommen dations. THROMBOPLASTIN TIME [id number] 13:49:00 Test Item Value Reference Range Interpretation Comments THROMBOPLASTIN TIME PARTIAL (test 31 SECONDS 25.1-36.5 N code = PTT) [id number] 13:49:00 Test Item Value Reference Range Interpretation Comments D-DIMER (test < 215 ng/mLFEU 0-500 N THE DDIMER M ETHOD IS USED code = IN THE EXCLUSIO N OF DEEP DDIMER) VEINTHROMBOSIS AND/OR PULMONARY EMBOL ISM AND THE CLINICAL CUT-OF F VALUE FOR EXCLUSION (500 NG/ML FEU) OF THESE CONDIT IONSIS VALIDATED BY E CLINICAL DATA PROGRAMMER OF THE METHOD. A NEGATIVE DDIM ER RESULT WHEN COMBINED W ITH A CLINICALASSESSM ENT OF LOW PRETEST PROBABI LITY HAS BEEN SHOWN TO H AVEA HIGH NEGATIVE PREDIC TIVE VALUE OF DVT OR PE. D -DIMER VALUES >500 ng/ mL ARE NOT DIAGNOSTIC FOR DVT,PEOR DIC WITHOUT OTHER C ONFIRMATORY TESTS AND APPROPRIATECLIN ICAL EVALUATIONS. Coronavirus 2019 nCoV [id number] 13:24:00 Test Item Value Reference Range Interpretation Comments Coronavirus 2019 Negative NEGATIVE THE ID NOW COVID-19 TI HAS nCoV Bedside (test NOT BEEN FDA CLEARED code = ORAPPROVED. IT HAS BEEN [id number]) AUTHORIZED BY THE FDA UNDER ANEMERGENCY USE [...] DIAGNOSIS OF COVID-19 UNDER SECTION 564(B)(1) OF [facility], 21 U.S.C. 360bbb-3 (b)(1), UNLESS THE AUTH [...] andsymptons con sistent with COVID-19. CBC W/AUTO [id number] 13:23:00 Test Item Value Reference Range Interpretation [...] K/mm3 0.0-0.1 N - CTA CHEST FOR [id number] 12:50:00 [facility] : 1995 Sex: FPatient Name: SEBAS LOU Unit No: [id number] EXAMS: CPT: [id number] [place] [address] CTA CHEST WITH CONTRAST: INDICATIONS:Chest pain. Shortness of breath. COMPARISON: None available TECHNIQUE: Axial CTchest with IV contrast was performed. Coronal and sagittal reformats reconstructed. Bolus tracking series followed by contrast-enhanced CT. Data set analyzed on a 3-D workstation with image post processing. CT radiation dose optimization is achieved for this examination by the use of a CT protocol in accordance with ACR practice standards and adherence to cash management clerk's recommendations. Contrast: 100cc Isovue-300. Total DPL: 768.81mGy*cm. FINDINGS: Unremarkable thyroid. No enlarged supraclavicular or axillary lymph node. The visualized central airway is [...] by: Rich Saab MD CC: Bonita Mathis MD Technologist: Flora Son CTDI: 20.17 DLP: 768.81 Trscr Dt/Tm: 04/11/2022 (1250) by:[email or web address] Orig Print D/T: S: 04/11/2022 (1253) BATCH NO: N/A Name: SEBAS LOU [facility] [place] Phys: Bonita Strickland [address] [facility] : 1995 Age: 26 Sex: F [place] Loc: T.ERS Exam Date: 04/11/2022 Status: REG ER PH: FAX: PAGE 1 Signed ReportCREATININE W-GFR [id number] 12:01:00 Test Item Value Reference Range Interpretation Comments CREATININE POC (test 0.74 mg/dL 0.6-1.3 N code = CREATP) GLOMERULAR > 60 >60 THE STAT SENSOR DEVICE FILTRATION RATE POC USES THE MDRD EQUATION (test code = GFRP) FOR CALCU LATING THE eGFR USEDIN RAD IOLOGY. THIS OVERRIDES THE CG (COCKCROFT GABE T) EQUATION USED I N [facility].The Gl omerular Filtration Rate is a [...] y reported result : 113 Edited by: [facility] E on 04/11/22:1201~~ Corrected Repor t ~~Reason (requi red):[] - XR CHEST 2 [id number] 10:56:00 [facility] : 1995 Sex: FPatient Name: SEBAS LOU Unit No: [id number] EXAMS: CPT: [id number] XR CHEST 2 V 49113 EXAM: XR CHEST 2 VIEWS DATE: 04/11/2022 [...] by: JAKE RESENDIZ M.D. CC: GENERIC FOR [facility] Technologist: CHUCK STEPHENS Fluoro Time: DAP (Gy m2): Air Kerma (mGy): Trscr Dt/Tm: 04/11/2022 (1056) by:[email or web address] Orig Print D/T: S: 04/11/2022 (5131) BATCH NO: N/A Name: SEBAS LOU Phys: EDDOC - EDDOC, GENERIC FOR [facility] [address] [facility] : 1995 Age: 26 Sex: F Thierno Bauer Loc: T.ERS Exam Date: 04/11/2022 Status: REG ER PH: FAX: PAGE 1 Signed ReportUR HCG [id number] 01:55:00 Test Item Value Reference Range Interpretation Comments UR HCG QUAL (test code = HCGQLU) NEGATIVE NEGATIVE URINALYSIS [id number] 01:54:00 Test Item Value Reference Range Interpretation [...] (test code = SQU) - US PELVIC [id number] 01:19:00 [facility] : 1995 Sex: FPatient Name: SEBAS LOU Unit No: [id number] EXAMS: CPT: [id number] US PELVIC COMPLETE 31562 EXAMINATION: PELVIC ULTRASOUND HISTORY: Left lower quadrant [...] Sherin Ramachandran Probe: Trscr Dt/Tm: 10/20/2020 (0119) by:[email or web address] Orig Print D/T: S: 10/20/2020 (0122) BATCH NO: N/A Name: SEBAS LOU [facility] [place] Phys: BERDA.Daiman Doyle MD [address] : 1995 Age: 24 Sex: F Thierno Bauer Loc: TRobynERS Exam Date: 10/20/2020 Status: REG ER PH: FAX: PAGE 1 Signed Report- XR CHEST 1 [id number] 00:12:00 [facility] : 1995 Sex: FPatient Name: SEBAS LOU Unit No: [id number] EXAMS: CPT: [id number] XR CHEST 1 V 75084 CHEST 1 VIEW CLINICAL HISTORY: Chest pain COMPARISON: None. A single frontal view of the chest is submitted. FINDINGS: The cardiac silhouette is normal in size. Vascularity appears normal. The lungs are clear. No pleural effusion or pneumothorax is seen. No osseous abnormalities are seen. IMPRESSION: Negative chest radiograph. at 0012 Reportedand signed by: Meliza Escobar MD CC: Damain Whitt MD Technologist: Norah De La Garza Fluoro Time: DAP (Gy m2): Air Kerma (mGy): Trscr Dt/Tm: 10/20/2020 (11) by:[email or web address] Orig Print D/T: S: 10/20/2020 (001) BATCH NO: N/A Name: SEBAS LOU [facility] [place] Phys: .Damian Doyle MD [address] : 1995 Age: 24 Sex: F [facility]auer [id number] Loc: CHARU Exam Date: 10/19/2020 Status: REG ER PH: FAX: PAGE 1 Signed ReportUR HCG [id number] 23:41:00 Test Item Value Reference Range Interpretation Comments UR HCG QUAL (test code = HCGQLU) NEGATIVE NEGATIVE URINALYSIS [id number] 23:41:00 Test Item Value Reference Range Interpretation [...] = RARE /LPF NONE-FEW MUCU) COMPREHENSIVE METABOLIC [id number] 23:31:00 Test Item Value Reference Range Interpretation [...] CA) BILIRUBIN TOTAL 0.6 mg/dL 0.2-1.0 N U-fupymh-w-b enzoquino (test code = BILT) ne imine (NAPQI), a metabolite ofacetaminophen (paracetamol), may generate errone ously lowresults in s amples for patients th at have taken toxi c dosesof acetami nophen (paracetamol). SGOT/AST (test 26 UNITS/L 10-42 N code = AST) SGPT/ALT (test 29 UNITS/L 10-40 N code = ALT) ALKALINE 95 UNITS/L 34-104 N PHOSPHATASE (test code = ALKP) COMPREHENSIVE METABOLIC [id number] 23:24:00 Test Item Value Reference Range Interpretation [...] code = UNITS/L 34-104 ALKP) CBC W/AUTO [id number] 23:21:00 Test Item Value Reference Range Interpretation [...] BA#) 0.04 K/mm3 0.0-0.1 N RHEUMATOID FACTOR [id number] 13:09:00 Test Item Value Reference Range Interpretation Comments RHEUMATOID FACTOR SCREEN (test code NEGATIVE NEGATIVE = RA) ANTINUCLEAR ANTIBODIES [id number] 13:09:00 Test Item Value Reference Range Interpretation Comments BETITO SCREEN (test code Negative () Negat afshan <1:80 = ANASCR) Borderline 1:80 Positive >1:80Performed At: [facility] [address] [place], [place] [id number] batsheva Cohen MD Ph:[phone] RHEUMATOID FACTOR [id number] 23:08:00 Test Item Value Reference Range Interpretation Comments RHEUMATOID FACTOR SCREEN (test code NEGATIVE NEGATIVE = RA) ANTINUCLEAR ANTIBODIES [id number] 23:08:00 Test Item Value Reference Range Interpretation Comments BETITO SCREEN (test code = ANASCR) COMPREHENSIVE METABOLIC [id number] 15:35:00 Test Item Value Reference Range Interpretation [...] = LDLC) 99 mg/dL 0-100 N VITAMIN [id number] 15:35:00 Test Item Value Reference Range Interpretation Comments VITAMIN B12 (test code = VITB12) 370 pg/mL 254-1320 N T3 (TOTAL)2019-03-29 15:35:00 Test Item Value Reference Range Interpretation Comments T3 (TOTAL) (test code = T3T) 1.08 ng/mL 0.6-1.81 N T3 [id number] 15:35:00 Test Item Value Reference Range Interpretation Comments T3 UPTAKE (test code = T3UP) 35 % 31-39 N T4 (THYROXINE)2019-03-29 15:35:00 Test Item Value Reference Range Interpretation Comments T4 (THYROXINE) (test code = T4) 8.4 ug/dL 4.7-11.4 N THYROID STIMULATING [id number] 15:35:00 Test Item Value Reference Range Interpretation Comments THYROID STIMULATING HORMONE (test 1.14 mIU/mL 0.36-3.74 N code = TSH) VITAMIN D [id number] 15:35:00 Test Item Value Reference Range Interpretation Comments VITAMIN D 25-HYDROXY 25 ng/mL 30-100 L Level n g/mLDeficient (test code = VITD25) <20Insu fficient 20-29Optimal le vels 30-100 C REACTIVE [id number] 15:35:00 Test Item Value Reference Range Interpretation Comments C REACTIVE PROTEIN (test code = 0.29 mg/dL 0.00-0.33 N CRP) COMPREHENSIVE METABOLIC [id number] 11:36:00 Test Item Value Reference Range Interpretation [...] = LDLC) 99 mg/dL 0-100 N VITAMIN [id number] 11:36:00 Test Item Value Reference Range Interpretation Comments VITAMIN B12 (test code = VITB12) 370 pg/mL 254-1320 N T3 (TOTAL)2019-03-29 11:36:00 Test Item Value Reference Range Interpretation Comments T3 (TOTAL) (test code = T3T) ng/mL 0.6-1.81 T3 [id number] 11:36:00 Test Item Value Reference Range Interpretation Comments T3 UPTAKE (test code = T3UP) 35 % 31-39 N T4 (THYROXINE)2019-03-29 11:36:00 Test Item Value Reference Range Interpretation Comments T4 (THYROXINE) (test code = T4) 8.4 ug/dL 4.7-11.4 N THYROID STIMULATING [id number] 11:36:00 Test Item Value Reference Range Interpretation Comments THYROID STIMULATING HORMONE (test 1.14 mIU/mL 0.36-3.74 N code = TSH) VITAMIN D [id number] 11:36:00 Test Item Value Reference Range Interpretation Comments VITAMIN D 25-HYDROXY (test code = ng/mL 30-100 VITD25) C REACTIVE [id number] 11:36:00 Test Item Value Reference Range Interpretation Comments C REACTIVE PROTEIN (test code = 0.29 mg/dL 0.00-0.33 N CRP) URINALYSIS [id number] 11:00:00 Test Item Value Reference Range Interpretation [...] code = MUCU) OCCASIONAL /lpf CBC W/AUTO [id number] 10:49:00 Test Item Value Reference Range Interpretation [...] REQUIRED (test NO code = MDIFF) TROPONIN [id number] 01:47:00 Test Item Value Reference Range Interpretation [...] 2 pg/mL 0-100 (test code = 700) [id number] 01:23:00 Test Item Value Reference Range Interpretation Comments D-DIMER QUANTITATIVE (BEAKER) < MG/L FEU <0.50 (test code = 671) REGARDING D-DIMER RESULTS: The 98% NPV (Negative Predictive Value) for DVT/PE exclusion is 0.50 mg/LFEU as suggested by the cash management clerk and as approved by the FDA.COMPREHENSIVE METABOLIC [id number] 01:22:00 Test Item Value Reference Range Interpretation [...] FOR DIALYSIS PATIEN TS. RAPID INFLUENZA A&B [id number] 01:22:00 Test Item Value Reference Range Interpretation Comments RAPID INFLUENZA A AG (BEAKER) Negative Negative, Inconclusive (test code = 1622) RAPID INFLUENZA B AG (BEAKER) Negative Negative, Inconclusive (test code = 1623) URINALYSIS W/ REFLEX URINE [id number] 01:10:00 Test Item Value Reference Range Interpretation [...] 1663) SOURCE(BEAKER) (test code = 2795) SCREEN, [id number] 01:03:00 Test Item Value Reference Range Interpretation Comments TEST URINE (BEAKER) (test Negative code = 583) CBC W/PLT COUNT & AUTO [id number] 00:58:00 Test Item Value Reference Range Interpretation [...] (test code = 417) RAD, CHEST, 2 [id number] 00:35:00Reason for exam:->CHEST PAINFINAL REPORT INDICATION: CHEST PAIN COMPARISON: None TECHNIQUE: Frontal and lateral views of the chest. FINDINGS: Lungs and pleura: Clear lungs. No effusion.Heart and mediastinum: Normal heart size. Unremarkable mediastinal contours.Osseous structures: No acute abnormality.Additional findings: None. IMPRESSION: No acute intrathoracic abnormality. Signed: JR Mcghee Robert MDReport Verified Date/Time: 07/07/2017 00:35:47 Reading Location: [address] Body Reading Room Notes Date/Time Note Provider Source 2022-04-28 21:49:00-00:00 [facility] [place] [facility]Y PROVIDER REPORT REPORT#:[id number] REPORT STATUS: Signed DATE:04/28/22 TIME: 2148 PATIENT: SEBAS LOU UNIT #: [id number] ROOM: BED: AGE: 26 SEX: F PCP PHYS: No Primary or Family Ph ysician SERVICE AUTHOR: Sandro Lewis MD * ALL edits or amendments must be made on the [employer]/computer document * HPI-Dyspnea/Wheezing Free Text HPI Notes Free Text HPI Notes Pt is a 26 y/o female with PMHx of Asthma preseverardo ting to the ED via private vehicle for c/o sob that came on weeks ago. Pt s tates that she was seen last week and notes no relief since then. She states that she was at a [employer] tonight when she decided to us a nebulizer to help alleviate sob. Pt states that she didn't feel any sense of relief this time and she grew concerned. She also reports some pain under her left breast with sob. General Confirmed Patient Yes Patient Type New patient Initial Greet Date/Time 04/28/222145 Presentation Chief Complaint Shortness of breath Hx Obtained From Patient )( Sudden in Onset? No Onset Occurred Weeks ago Symptom Duration Since onset Progression since Onset Constant Severity: Onset Moderate Severity: Current Moderate Risk-Dyspnea/Wheezing Risk Stratification HEART for MACE HEART for MACE Response Value History Low index of suspicion 0 ECG Interpretation Normal ECG 0 Age Age under 45 0 Risk Factors for CAD No risk factors known 0 Troponin < or = to NL troponin 0 Total 0 HEART Score for MACE 0-3 (low risk 0.9%-1.7%) Free Text Risk Notes Free Text Risk Notes aspirin not indicated Review of Systems ROS Statements All systems rev neg except as marked. Focused Review of Systems Constitutional Denies: Chills, Fatigue, Fever. Ears/Nose/Throat Denies: Ear ringing bilat, Earache bilat, Nasal congestion. Respiratory Reports: Shortness of breath. Denies: Cough, non -productive, Wheezing. Cardiovascular Denies: Chest pain, Palpitations, Syncope. Musculoskeletal Denies: Back pain, Extremity pain, Extremity swe lling. Skin Denies: Abrasion, Abscess, Rash. Additional Review of Systems Eyes Denies: Discharge bilat, Eye pain bilat, Redness bilat. GI Denies: Abdominal pain, Nausea, Vomiting. Female Denies: Dysuria, Flank pain, Hematuria. Neurologic Denies: Dizziness, Generalized weakness, Headach e. Psychiatric Denies: Agitation, Anxiety, Stress. Past Medical History - Adult Stated Complaint SHORTNESS OF BREATH Allergies Coded Allergies: Penicillins (Intermediate, HIVES 10/19/20) Sulfa (Sulfonamide Antibiotics) (Intermediate, H CASTRO 10/19/20) Home Medications Active Scripts clindamycin Hcl (Cleocin) 450 MG PO Q8H 7 Days #63 CAPS Prov: 04/01/21 Famotidine (Pepcid) 20 MG PO BID Famotidine (Pepcid) 20 MG PO BID #14 TABS Prov: 04/01/21 Ibuprofen (Advil) 600 MG PO Q6H PRN PRN pain/fev er Ibuprofen (Advil) 600 MG PO Q6H PRN PRN pain/fe clive #32 TABS Prov: 04/01/21 Acetaminophen (Tylenol) 3 TAB PO Q6H PRN PAIN/ F EVER Acetaminophen (Tylenol) 3 TAB PO Q6H PRN PAIN/ FEVER #30 TABS Prov: 04/01/21 Cephalexin (Keflex) 500 MG PO Q12H Cephalexin (Keflex) 500 MG PO Q12H #14 CAPS Prov: 06/03/21 Albuterol (Proventil) 2.5 MG NEB RTQ4H PRN PRN W HEEZING Albuterol (Proventil) 2.5 MG NEB RTQ4H PRN PRN WHEEZING #75 ML Prov: 04/11/22 Ibuprofen (Motrin) 800 MG PO TID PRN PRN PAIN Ibuprofen (Motrin) 800 MG PO TID PRN PRN PAIN # 20 TABS Prov: 04/11/22 Review of Nursing Notes Rev avail, and agree Pt reports no significant: P ast surgical history, Family history, Social history Past Medical History: Reports: Asthma. Additional Medical History Been diagnosed with high blood pressure in the p ast, but has never taken meds Told once by an urgent care that her chest x-ray looks like it was early onset COPD no prior official diagnosis or evalua tion Smoking status for patients 13 years old or olde r: Former Smoker Physical Exam Vital Signs Vital Signs First Documented: Result Date Time Pulse Ox 100 04/28 2145 B/P 148/96 04/28 2145 B/P Mean 113 04/28 2145 O2 Delivery Room air 04/28 2145 Temp 98.2 04/28 2145 Pulse 93 04/28 2145 Resp 16 04/28 2145 Last Documented: Result Date Time Pulse Ox 99 04/28 2349 B/P 137/86 04/28 2349 B/P Mean 103 04/28 2349 O2 Delivery Room air 04/28 2349 Pulse 86 04/28 2349 Resp 18 04/28 2349 Temp 98.2 04/28 2145 Review of Vital Signs Reviewed Focused PE General/Const General/Const Awake, Alert Ears/Nose/Throat Ears/Nose/Throat Airway patent, Mucous membrane s moist, Pharynx NL MS Neck Neck Supple, No meningismus, Full range of indy on Resp/Chest Respiratory/Chest No respiratory distress Text/Dict Notes Minimal wheezing, speaks in full sentences. Cardiovascular Cardiovascular Heart rate NL, Regular rhythm, H eart sounds NL Abdomen/GI Abdomen/GI Soft, Non-tender, McBurney's non-ten carlita MS Back Back Inspection NL, Full range of motion, Painl ess range of motion MS Lower Extrem Lower Ext/Pelvis/MS Inspection NL, Full range o f motion, No swelling Skin Skin Color NL, No rash, Warm, Dry, Intact Neurologic Neurologic Oriented X3, Speech NL, No m otor deficits, No sensory deficits, CN II - XII intact Additional PE MS Head Head Atraumatic, Normocephalic Eyes Eyes PERRL, EOMI, No nystagmus MS Upper Extrem Upper Extremity/MS Inspection NL, Full range of motion, No swelling Psychiatric Psychiatric Affect NL, Mood NL Interpretation Diagnostics Lab Results Interpretation Results Laboratory Tests: 04/28 Serology SARS CoV-2 RNA Rapid CHRISTAL (NEGATIVE) Negative Urines Urine HCG, Qual (NEGATIVE) NEGATIVE Microbiology: Date/Time Procedure - Status Source Growth 04/28 2155 Influenza Virus Type B Antigen - CO MP NASOPHARG 04/28 2155 Influenza Virus Type A Antigen - COM P NASOPHARG Recent Impressions: RADIOLOGY - XR CHEST 2 V 04/28 1055 Report Impression - Status: SIGNED Entered: 04/28/2022 2311 IMPRESSION: No acute cardiopulmonary abnormality. Impression By: [facility] – [place] CITYRYAN FINNEGAN M.D Lab Imaging Statement Laboratory radiographic studies reviewed and con sidered in the medical decision-making. Point of Care Testing Pulse Oximetry Pulse Ox % 100 On: Room air Interpretation Interpreted by me, Pulse oximetr y normal Time 2218 ECG #1 Interpretation ECG Documented in MUSE No Date 04/28/22 Time 221 Interpreted by and reviewed by me NL ECG Interpretation Normal sinus rhythm, No acute ischemic changes, No STEMI, Normal axis, Normal intervals Rate 82 Re-Evaluation MDM Free Text MDM Notes Free Text MDM Notes 26-year-old asthmatic here with left-radha ed chest pain and shortness of breath. Patient was here 2 and half weeks ago and had full work-up including CTA chest, is again here with similar s ymptoms, states partial relief with neb treatments, has some left-sided pleuriti c chest pain, EKG negative, already had rule out for pulmonary embolism, chest x-ray negative, viral swabs negative, has minimal wheezing, 100% normal room air oxygen sat. Will discharge home with steroid course, NSAIDs, follow-up with primary care Viral swabs chest x-ray negative, EKG no nischemic. Will DC home with as needed inhaler, oral azithromycin and prednisone, follo w-up with primary care )( Re-Evaluation/Progress #1 Text/Dict Note Discussed lab and imaging results with pt, will plan to d/c pt home. Time of Re-Eval 2334 )( Re-Eval Status Improved Differential Diagnosis Differential Diagnosis Anxiety, Asthma, Chest pa in Patient Discharge Departure Vital Signs/Condition Vital Signs First Documented: Result Date Time Pulse Ox 100 04/28 2145 B/P 148/96 04/28 2145 B/P Mean 113 04/28 2145 O2 Delivery Room air 04/28 2145 Temp 98.2 04/28 2145 Pulse 93 04/28 2145 Resp 16 04/28 2145 Last Documented: Result Date Time Pulse Ox 99 04/28 2349 B/P 137/86 04/28 2349 B/P Mean 103 04/28 2349 O2 Delivery Room air 04/28 2349 Pulse 86 04/28 2349 Resp 18 04/28 2349 Temp 98.2 04/28 2145 All vital signs available at the time of this en try have been reviewed. Condition Stable Clinical Impression Clinical Impression Primary Impression: Asthma with acute exacerbati on Secondary Impressions: Chest pain Disposition Decision Discharge )( Discharged to Home Yes )( Time 2338 )( Date 04/28/22 Discharge/Care Plan Counseled Regarding Diagnosi s, Lab results, Imaging studies, Prescriptions, Need for follow-up, When to return to ED (Auto) Prescriptions Current Visit Scripts Prednisone 60 MG PO DAILY Prednisone 60 MG PO DAILY #15 TABS UNTIL FINISHED (5 DAYS) Azithromycin (Z-DILIP) 250 MG PO ASDIR Azithromycin (Z-DILIP) 250 MG PO ASDIR #6 TABS Take 2 tablets today, then 1 tablet daily there after for a total of 5 days of treatment. Albuterol (Proair HFA 90 MCG/ACT 8.5 GM) 2 PUFF INH RTQ4H PRN PRN DYSPNEA/ WHEEZING Albuterol (Proair HFA 90 MCG/ACT 8.5 GM) 2 PUFF INH RTQ4H PRN PRN DYSPNEA/ WHEEZING #8.5 GM Naproxen (Naprosyn) 500 MG PO BID PRN PRN PAIN 10 Days #20 TABS Patient Instructions ED Asthma, Acute (Adult) Discharge Note I have spoken with the patie nt and/or caregivers. I have explained the patient's condition, diagnoses and taylor atment plan based on the information available to me at this time. I have answered the patient's and/ or caregiver's questions and addressed any concerns. The patient and/or careg denilson have as good an understanding of the patient 's diagnosis, condition and treatment plan as can be expected at this point. The vital signs have bee n stable. The patient's condition is stable and appr opriate for discharge from the emergency department. The patient will pursue further outpatient evalu ation with the primary care physician or other designated or consulting phys ician as outlined in the discharge instructions. The patient and/or caregivers are agreeable to this plan of care and follow-up instructions have been exp lained in detail. The patient and/or caregivers have received these instructio ns in written format and have expressed an understanding of the discharge inst ructions. The patient and/or caregivers are aware that any significant change in condition or worsening of symptoms should prompt an immediate return to [facility] or the closest emergency department or a call to 911. Quality Measures BP F/U for HTN F/u with PCP/other doc 12-Lead ECG for CP Performed documented at 0[facility] #:[id number] END OF REPORT 2022-04-11 11:08:00-00:00 [facility] ([facility]) EMERGENCY PROVIDER REPORT REPORT#:[id number] REPORT STATUS: Signed DATE:04/11/22 TIME: 1108 PATIENT: SEBAS LOU UNIT #: [id number] ROOM: BED: AGE: 26 SEX: F PCP PHYS: No Primary or Family Ph ysician SERVICE AUTHOR: Bonita Mathis MD * ALL edits or amendments must be made on the [employer]/computer document * HPI-General Illness Free Text HPI Notes Free Text HPI Notes Patient is a 26-year-old female who presents wit h left-sided chest pain and shortness of breath. She sta temo that she started having sharp pains in her left lower chest wall that radiat es around to the side for about 2 weeks. Worse with movement and pressure. And then over the last 2 days she has felt like she has had a cold coming on. Mild shortness of breath, scratchy throat, but no real coughing or fever. Then last night she started f eeling short of breath and so came into the ER to be evaluated. General Initial Greet Date/Time 04/11/22 1019 Presentation Chief Complaint Shortness of breath Review of Systems Free Text ROS Notes Free Text ROS Notes Constitutional: Denies fever Eyes: Denies red eyes Resp: + sob CV: Positive cp GI: Denies abd pain : Denies dysuria Musculoskeletal: Denies extremity swelling Skin: Denies hives Neuro: Denies focal weakness Psych: Denies suicidal ideation Past Medical History - Adult Stated Complaint SOB, CHEST PAIN Allergies Coded Allergies: Penicillins (Intermediate, HIVES 10/19/20) Sulfa (Sulfonamide Antibiotics) (Intermediate, H CASTRO 10/19/20) Home Medications Active Scripts clindamycin Hcl (Cleocin) 450 MG PO Q8H 7 Days #63 CAPS Prov: 04/01/21 Famotidine (Pepcid) 20 MG PO BID Famotidine (Pepcid) 20 MG PO BID #14 TABS Prov: 04/01/21 Ibuprofen (Advil) 600 MG PO Q6H PRN PRN pain/fev er Ibuprofen (Advil) 600 MG PO Q6H PRN PRN pain/fe clive #32 TABS Prov: 04/01/21 Acetaminophen (Tylenol) 3 TAB PO Q6H PRN PAIN/ F EVER Acetaminophen (Tylenol) 3 TAB PO Q6H PRN PAIN/ FEVER #30 TABS Prov: 04/01/21 Cephalexin (Keflex) 500 MG PO Q12H Cephalexin (Keflex) 500 MG PO Q12H #14 CAPS Prov: 06/03/21 Calculated Suicide Risk (nurs) No risk Pt reports no significant: Family history, Socia l history Additional Medical History Been diagnosed with high blood pressure in the p ast, but has never taken meds Told once by an urgent care that her es st x-ray looks like it was early onset COPD no prior official diagnosis or evaluation Smoking status for patients 13 years old or olde r: Former Smoker Physical Exam Vital Signs Vital Signs First Documented: Result Date Time Pulse Ox 96 04/11 1024 B/P 140/85 04/11 1024 B/P Mean 103 04/11 1024 Temp 98.2 04/11 1024 Pulse 90 04/11 1024 Resp 18 04/11 1024 O2 Delivery Room air 04/11 1437 Last Documented: Result Date Time Pulse Ox 99 04/11 1437 B/P 131/69 / 1437 B/P Mean 89 04/11 1437 O2 Delivery Room air 04/11 1437 Pulse 77 04/11 1437 Resp 16 04/11 1437 Temp 98.2 04/11 1024 Review of Vital Signs Reviewed Free Text PE Notes Free Text PE Notes Constitution: awake, alert, NAD Head: normocephalic, atraumatic neck: no JVD, trachea midline CV: RRR, no murmer, peripheral pulses 2+ x 4, Resp: CTAB, no distress GI: soft, nontender, no distension Musculoskeletal: no edema, no deformities Skin: warm, dry, no rash Neuro: A O x 3, no focal deficits Psych: appropriate mood and affect Risk-Chest Pain 40 and Over Risk Stratification )( Coronary Artery Disease Risk factors reviewed )( Thoracic Aortic Dissection Risk factors revie wed )( Pulmonary Embolism Risk factors reviewed )( AMI-Aspirin Aspirin Last 24 Hrs Not indicated )( HEART for MACE )( HEART for MACE Response Value History Low index of suspicion 0 ECG Interpretation Normal ECG 0 Age Age under 45 0 Risk Factors for CAD 1-2 CAD risk factors 1 Troponin < or = to NL troponin 0 Total 1 Interpretation Diagnostics Lab Results Interpretation Results Laboratory Tests 04/11/22 1240: [Embedded Image Not Available] Laboratory Tests: 04/11 04/11 04/11 04/11 1159 1240 1240 1240 Chemistry Sodium (136 - 145 mmol/L) 137 Potassium (3.4 - 4.5 mmol/L) 4.5 Chloride (98 - 107 mmol/L) 103 Carbon Dioxide (20 - 31 mmol/l) 27 BUN (9 - 23 mg/dL) 9 Creatinine (0.55 - 1.02 mg/dL) 0.74 POC Creatinine (0.6 - 1.3 mg/dL) 0.74 Glomerular Filtr Rate (>60) >=60 max estimate Estimated GFR (MDRD) (>60) > 60 Glucose (74 - 106 mg/dL) 86 Calcium (8.6 - 10.3 mg/dL) 9.1 Total Bilirubin (0.3 - 1.2 mg/dL) 0.4 Direct Bilirubin (0.0 - 0.3 mg/d/L) 0.1 Indirect Bilirubin (0.0 - 1.2 mg/dL) 0.3 AST (0 - 34 U/L) 30 ALT (10 - 49 U/L) 19 Total Alk Phosphatase (46 - 116 U/L) 79 Troponin I High Sens (0.0 - 34.0 ng/L) < 2.5 B-Natriuretic Peptide (0 - 100 pg/mL) 5 Total Protein (5.7 - 8.2 g/dL) 7.2 Albumin (3.4 - 5.0 g/dl) 4.1 Lipase (12 - 53 U/L) 41 Coagulation PT (9.5 - 12.9 SECONDS) 11.9 INR (0.85 - 1.15) 1.0 PTT ([place]) (25.1 - 36.5 SECONDS) 31 D-Dimer (0 - 500 ng/mLFEU) < 215 Hematology WBC (5.0 - 12.0 K/mm3) 7.46 RBC (4.20 - 5.40 M/mm3) 4.68 Hgb (12.0 - 16.0 G/DL) 13.5 Hct (34.9 - 44.5 %) 41.2 MCV (81 - 99 fL) 88 MCH (27 - 31 PGM) 28.8 MCHC (33 - 37 G/DL) 32.8 L RDW (11.6 - 16.2 %) 12.2 Plt Count (130 - 400 K/mm3) 243 MPV (7.4 - 10.4 fl) 10.5 H Neut % (Auto) (43 - 65 %) 71.8 H Lymph % (Auto) (20.5 - 45.5 %) 20.6 [place] % (Auto) (5.5 - 11.7 %) 6.0 Eos % (Auto) (0.9 - 2.9 %) 0.9 Baso % (Auto) (0.2 - 1.0 %) 0.4 Neut # (Auto) (2.2 - 4.8 K/mm3) 5.35 H Lymph # (Auto) (1.3 - 2.9 K/mm3) 1.54 [place] # (Auto) (0.3 - 0.8 K/mm3) 0.45 Eos # (Auto) (0.0 - 0.2 K/MM3) 0.07 Baso # (Auto) (0.0 - 0.1 K/mm3) 0.03 Immature Gran % (0.0 - 2.0 %) 0.3 Nucleated RBC % (0 - 1.0 %) 0.0 04/11 1248 Serology SARS CoV-2 RNA Rapid CHRISTAL (NEGATIVE) Negative Microbiology: Date/Time Procedure - Status Source Growth 04/11 1248 Group A Streptococcus Screen (NAYA) - COMP THROAT 04/11 1248 Influenza Virus Type B Antigen - CO MP NASOPHARG 04/11 1248 Influenza Virus Type A Antigen - COM P NASOPHARG Recent Impressions: RADIOLOGY - XR CHEST 2 V 04/11 1051 Report Impression - Status: SIGNED Entered: 04/11/2022 1059 IMPRESSION: No acute cardiopulmonary abnormalities. Impression By: [email or web address] - JAKE RESENDIZ M.D. CAT SCAN - CTA CHEST FOR PE 04/11 1240 Report Impression - Status: SIGNED Entered: 04/11/2022 1253 IMPRESSION: No pulmonary emboli. No acute lung infiltrate. No acute abnormality within the chest. Impression By: [email or web address] - Rich Saab MD Lab Imaging Statement Laboratory radiographic studies reviewed and con sidered in the medical decision-making. ECG #1 Interpretation Text/Dict Note Sinus rhythm at a rate of 62 , inverted T wave in aVR, V1, aVL, no ST elevation, no ectopy, normal QRS and QTc Date 04/11/22 Time 1030 Re-Evaluation MDM Free Text MDM Notes Free Text MDM Notes Patient is a 26-year-old female who presents wit h pleuritic left-sided chest pain as well as shortness of breath. EKG, labs, CTA of chest, unremarkable. Will discharge home with an inhaler to u se as needed, plus some NSAIDs for the left-sided chest wall pain. No indication of darci rgent condition at this time. ED Course Medication(s) Ordered Medication(s) Ordered: Autonomic Drugs Sig/Dg Start time Last Medication Dose Route Stop Time Status Admin Albuterol/Ipratropium 3 ML X1ED STA 04/11 1105 DC / NEB 04/11 1106 1335 Central Nervous System Agents Sig/Dg Start time Last Medication Dose Route Stop Time Status Admin Morphine Sulfate 4 MG X1ED STA 04/11 1105 DC IV 04/11 1106 Diagnostic Agents Sig/Dg Start time Last Medication Dose Route Stop Time Status Admin Iopamidol 93 ML .STK-MED ONE 04/11 1243 DC 12/0 2 IV 04/11 1244 1243 Electrolytic, Caloric, And Audelia Sig/Dg Start time Last Medication Dose Route Stop Time Status Admin Sodium Chloride 50 ML .STK-MED ONE 04/11 1242 D C 04/11 IV 04/11 1243 1242 Sodium Chloride 1,000 ML X1ED STA 04/11 1105 DC 12 IV 04/11 1204 1241 Patient Discharge Departure Vital Signs/Condition Vital Signs First Documented: Result Date Time Pulse Ox 96 04/11 1024 B/P 140/85 04/11 1024 B/P Mean 103 04/11 1024 Temp 98.2 04/11 1024 Pulse 90 04/11 1024 Resp 18 04/11 1024 O2 Delivery Room air 04/11 1437 Last Documented: Result Date Time Pulse Ox 99 04/11 1437 B/P 131/69 04/11 1437 B/P Mean 89 04/11 1437 O2 Delivery Room air 04/11 1437 Pulse 77 04/11 1437 Resp 16 04/11 1437 Temp 98.2 04/11 1024 All vital signs available at the time of this en try have been reviewed. Clinical Impression Clinical Impression Primary Impression: DYPSNEA Secondary Impressions: Chest wall pain Disposition Decision Discharge )( Discharged to Home Yes )( Time 1443 )( Date 04/11/22 Discharge/Care Plan Counseled Regarding Diagnosi s, Lab results, Imaging studies, Prescriptions, Need for follow-up, When to return to ED (Auto) Prescriptions Current Visit Scripts Albuterol (Proventil) 2.5 MG NEB RTQ4H PRN PRN W HEEZING Albuterol (Proventil) 2.5 MG NEB RTQ4H PRN PRN WHEEZING #75 ML Ibuprofen (Motrin) 800 MG PO TID PRN PRN PAIN Ibuprofen (Motrin) 800 MG PO TID PRN PRN PAIN # 20 TABS Patient Instructions ED Shortness of Breath (Dys pnea) Referrals Provider Referral: Sanchez Pitt MD Follow-Up: As Needed Address: [address] [place] [address] , [address] [address] Discharge Note I have spoken with the patie nt and/or caregivers. I have explained the patient's condition, diagnoses and taylor atment plan based on the information available to me at this time. I have answered the patient's and/ or caregiver's questions and addressed any concerns. The patient and/or careg denilson have as good an understanding of the patient 's diagnosis, condition and treatment plan as can be expected at this point. The vital signs have bee n stable. The patient's condition is stable and appr opriate for discharge from the emergency department. The patient will pursue further outpatient evalu ation with the primary care physician or other designated or consulting phys ician as outlined in the discharge instructions. The patient and/or caregivers are agreeable to this plan of care and follow-up instructions have been exp lained in detail. The patient and/or caregivers have received these instructio ns in written format and have expressed an understanding of the discharge inst ructions. The patient and/or caregivers are aware that any significant change in condition or worsening of symptoms should prompt an immediate return to [facility] or the closest emergency department or a call to 911. at 1445 RPT #:[id number] END OF REPORT 2021-06-03 01:37:00-00:00 [facility] ([facility]) EMERGENCY PROVIDER REPORT REPORT#:[id number] REPORT STATUS: Signed DATE:06/03/21 TIME: 136 PATIENT: SEBAS LOU UNIT #: [id number] ROOM: BED: AGE: 25 SEX: F PCP PHYS: No Primary or Family Ph ysician SERVICE AUTHOR: Damian Whitt MD * ALL edits or amendments must be made on the [employer]/computer document * HPI- Female Free Text HPI Notes Free Text HPI Notes Pt is a 25 y/o female with P MHx of HTN presenting to the ED via private vehicle for c/o urinary frequency and flank pain that ca me on x1 week ago. Pt states that she grew concerned today about sx when she also developed some mild flushing today. General Confirmed Patient Yes Patient Type New patient Initial Greet Date/Time 06/03/21135 Presentation Chief Complaint Urinary frequency Hx Obtained From Patient )( Sudden in Onset? No Onset Occurred Days ago Symptom Duration Since onset Progression since Onset Constant Severity: Onset Moderate Severity: Current Moderate Review of Systems Free Text ROS Notes Free Text ROS Notes See HPI, 10 point review of systems otherwise ne gative Past Medical History - Adult Stated Complaint URINARY FREQUENCY Allergies Coded Allergies: Penicillins (Intermediate, HIVES 10/19/20) Sulfa (Sulfonamide Antibiotics) (Intermediate, H CASTRO 10/19/20) Home Medications Active Scripts clindamycin Hcl (Cleocin) 450 MG PO Q8H 7 Days #63 CAPS Prov: 04/01/21 Famotidine (Pepcid) 20 MG PO BID Famotidine (Pepcid) 20 MG PO BID #14 TABS Prov: 04/01/21 Ibuprofen (Advil) 600 MG PO Q6H PRN PRN pain/fev er Ibuprofen (Advil) 600 MG PO Q6H PRN PRN pain/fe clive #32 TABS Prov: 04/01/21 Acetaminophen (Tylenol) 3 TAB PO Q6H PRN PAIN/ F EVER Acetaminophen (Tylenol) 3 TAB PO Q6H PRN PAIN/ FEVER #30 TABS Prov: 04/01/21 Review of Nursing Notes Rev avail, and agree Pt reports no significant: P ast surgical history, Family history, Social history Additional Medical History HTN, Acute COPD, and Ovarian cysts Physical Exam Vital Signs Vital Signs First Documented: Result Date Time Pulse Ox 97 06/03 136 B/P 130/89 06/03 136 B/P Mean 102 06/03 136 Temp 97.9 06/03 136 Pulse 94 06/03 136 Resp 18 01/24 0137 Last Documented: Result Date Time Pulse Ox 97 06/03 136 B/P 130/89 06/03 136 B/P Mean 102 06/03 136 Temp 97.9 06/03 136 Pulse 94 06/03 136 Resp 18 06/03 136 Review of Vital Signs Reviewed Free Text PE Notes Free Text PE Notes CONSTITUTIONAL: Well developed, well nourished. No acute distress. HEAD: Scalp is atraumatic. Normocephalic. EYES: PERRL. EOMI. Conjunctivae are not injected . ENT: Moist mucus membranes. NECK: Full ROM. No Stridor. RESPIRATORY/CHEST: No respiratory distress. No t achypnea. ABDOMEN/BACK: Soft and non-distended. Suprapubic TTP. No CVA TTP. EXTREMITIES: No C/C/E. FROM in all extremities. No calf tenderness. SKIN: Warm, dry intact. No petechiae, purpura, r ashes. NEURO: AAO x 3 and situation. Normal speech. PSYCH: Good eye contact. Normal interaction, aff ect, and behavior. Interpretation Diagnostics Lab Results Interpretation Results Laboratory Tests: 06/03 0142 Urines Urine Color (YELLOW) Colorless Urine Appearance (CLEAR) CLEAR Urine pH (4.5 - 8.5) 6.5 Ur Specific [place] (1.000 - 1.030) 1.002 Urine Protein (NEGATIVE MG/DL) NEG Urine Glucose (UA) (NEGATIVE MG/DL) NEG Urine Ketones (NEGATIVE MG/DL) NEG Urine Blood (NEGATIVE) NEG Urine Nitrite (NEGATIVE) NEG Urine Bilirubin (NEGATIVE) NEG Urine Urobilinogen (<=1.0 EU/dL) NORMAL Ur Leukocyte Esterase (NEGATIVE) 2+ A Urine RBC (0 - 3 /HPF) 0-3 Urine WBC (0 - 3 /HPF) 3-5 H Ur Squamous Epith Cells (NONE - FEW /HPF) RARE Urine Bacteria (NONE SEEN /HPF) 1+ H Urine HCG, Qual (NEGATIVE) NEGATIVE Lab Statement Laboratory studies reviewed and considered in medical decision-making. Point of Care Testing Pulse Oximetry Pulse Ox % 97 On: Room air Interpretation Interpreted by me, Pulse oximetr y normal Time 0150 Re-Evaluation MDM ED Course Medication(s) Ordered Medication(s) Ordered: Anti-Infective Agents Sig/Dg Start time Last Medication Dose Route Stop Time Status Admin Cephalexin 500 MG X1ED STA 06/03 0143 DC 06/03 PO 06/03 0144 0149 Patient Discharge Departure Vital Signs/Condition Vital Signs First Documented: Result Date Time Pulse Ox 97 06/037 B/P 130/89 06/03 0137 B/P Mean 102 06/037 Temp 97.9 06/037 Pulse 94 06/03 0137 Resp 18 06/03 136 Last Documented: Result Date Time Pulse Ox 97 06/03 0137 B/P 130/89 06/03 0137 B/P Mean 102 06/03 0137 Temp 97.9 06/03 0137 Pulse 94 06/03 013 Resp 18 06/03 136 All vital signs available at the time of this en try have been reviewed. Clinical Impression Clinical Impression Primary Impression: UTI (urinary tract infection ) Disposition Decision Discharge )( Discharged to Home Yes )( Time 0206 )( Date 06/03/21 Discharge/Care Plan (Auto) Prescriptions Current Visit Scripts Cephalexin (Keflex) 500 MG PO Q12H Cephalexin (Keflex) 500 MG PO Q12H #14 CAPS Patient Instructions Urinary Tract Infections in Women Referrals Raymond Lentz MD: 2-3 Days Discharge Note I have spoken with the patie nt and/or caregivers. I have explained the patient's condition, diagnoses and taylor atment plan based on the information available to me at this time. I have answered the patient's and/ or caregiver's questions and addressed any concerns. The patient and/or careg denilson have as good an understanding of the patient 's diagnosis, condition and treatment plan as can be expected at this point. The vital signs have bee n stable. The patient's condition is stable and appr opriate for discharge from the emergency department. The patient will pursue further outpatient evalu ation with the primary care physician or other designated or consulting phys ician as outlined in the discharge instructions. The patient and/or caregivers are agreeable to this plan of care and follow-up instructions have been exp lained in detail. The patient and/or caregivers have received these instructio ns in written format and have expressed an understanding of the discharge inst ructions. The patient and/or caregivers are aware that any significant change in condition or worsening of symptoms should prompt an immediate return to [facility] or the closest emergency department or a call to 911. Electronically Signed by Damian Whitt MD on at 2301 RPT #:[id number] END OF REPORT 2021-04-01 22:01:00-00:00 [facility] ([facility]) EMERGENCY PROVIDER REPORT REPORT#:[id number] REPORT STATUS: Signed DATE:04/01/21 TIME: 2200 PATIENT: SEBAS LOU UNIT #: [id number] ROOM: BED: AGE: 25 SEX: F PCP PHYS: No Primary or Family Ph ysician SERVICE AUTHOR: Damian Whitt MD * ALL edits or amendments must be made on the [employer] document * HPI-General Illness Free Text HPI Notes Free Text HPI Notes Pt is a 25 y/o female with P MHx of HTN presenting to the ED via private vehicle for c/o facial pain and swelling that came on x6 days ago. Pt states that she was dx with a tooth abscess x6 days ago and was placed on clindamycin to help with sx. She states that she's been taking the a bx as well as motrin to help manage sx but notes no improvement. She also rep orts doubling the original prescribed dose after she discussed no improveme nt with her doctor and states that this also didn't help. She states that she's no longer able to sleep due to sx and also reports experiencing chills and a del rosario bjective fever last night. General Confirmed Patient Yes Patient Type New patient Initial Greet Date/Time 04/01/21 7377 Presentation Chief Complaint facial swelling and pain Hx Obtained From Patient Onset Occurred Days ago (6) Symptom Duration Since onset Progression since Onset Constant Severity: Onset Moderate Severity: Current Moderate Review of Systems Free Text ROS Notes Free Text ROS Notes See HPI, 10 point review of systems otherwise ne gative Past Medical History - Adult Stated Complaint LEFT JAW, NECK AND HEAD PAIN--O N ABX FOR TOOTH IN Allergies Coded Allergies: Penicillins (Intermediate, HIVES 10/19/20) Sulfa (Sulfonamide Antibiotics) (Intermediate, H CASTRO 10/19/20) Review of Nursing Notes Rev avail, and agree Additional Medical History HTN, Acute COPD, and Ovarian cysts Smoking status: Smoking status for patients 13 years old or old er: Current every day smoker Physical Exam Vital Signs Vital Signs First Documented: Result Date Time Pulse Ox 100 04/01 2145 B/P 143/89 04/01 2145 B/P Mean 107 04/01 2145 O2 Delivery Room air 04/01 2145 Temp 99.0 04/01 2145 Pulse 94 04/01 2145 Resp 16 04/01 2145 Last Documented: Result Date Time Pulse Ox 100 04/01 2145 B/P 143/89 04/01 2145 B/P Mean 107 04/01 2145 O2 Delivery Room air 04/01 2145 Temp 99.0 04/01 2145 Pulse 94 04/01 2145 Resp 16 04/01 2145 Review of Vital Signs Reviewed Free Text PE Notes Free Text PE Notes CONSTITUTIONAL: Well developed, well nourished. No acute distress. HEAD: Scalp is atraumatic. Normocephalic. EYES: PERRL. EOMI. Conjunctivae are not injected . NOSE: No mucosal edema. No frontal or sinus tend erness THROAT: Moist mucus membranes. Uvula midline, To nsils non swollen, non erythematous NECK: Full ROM. No Stridor. No nuchal rigidity LYMPH: No tonsillar LAD. Positive right cervical LAD. CARDIOVASCULAR: Regular rhythm, rate. No murmurs , rubs, or gallops. RESPIRATORY/CHEST: No respiratory distress. No t achypnea. ABDOMEN/BACK: Soft and non-distended. Non-TTP. N o CVA TTP. EXTREMITIES: No C/C/E. FROM in all extremities. No calf tenderness. SKIN: Warm, dry intact. No petechiae, purpura, r ashes. Mild swelling to the right lower jaw with associa josey tenderness. No intraoral abscesses appreciated. NEURO: AAO x 3 and situation. Normal speech. PSYCH: Good eye contact. Normal interaction, aff ect, and behavior. Interpretation Diagnostics Point of Care Testing Pulse Oximetry Pulse Ox % 100 On: Room air Interpretation Interpreted by me, Pulse oximetr y normal Time 2212 Re-Evaluation MDM Re-Evaluation/Progress #1 Text/Dict Note Discussed dx with pt, will plan to d/c pt home. Re-Eval Status Improved ED Course Medication(s) Ordered Medication(s) Ordered: Anti-Infective Agents Sig/Dg Start time Last Medication Dose Route Stop Time Status Admin Clindamycin HCl 150 MG X1ED STA 04/01 2216 DC 1 06/01 PO 04/01 2217 230 Eye, Ear, Nose And Throat (Een Sig/Dg Start time Last Medication Dose Route Stop Time Status Admin Dexamethasone Sodium 16 MG X1ED STA 04/01 2217 DC 04/01 Phosphate PO 04/01 2218 2300 Gastrointestinal Drugs Sig/Dg Start time Last Medication Dose Route Stop Time Status Admin Pantoprazole 40 MG ONCE ONE 04/01 2222 DC 04/01 PO 04/01 2223 230 Differential Diagnosis Differential Diagnosis Abscess (dental), cervica l lymphadenopathy Patient Discharge Departure Vital Signs/Condition Vital Signs First Documented: Result Date Time Pulse Ox 100 04/01 2145 B/P 143/89 04/01 2145 B/P Mean 107 04/01 2145 O2 Delivery Room air 04/01 2145 Temp 99.0 04/01 2145 Pulse 94 04/01 2145 Resp 16 04/01 2145 Last Documented: Result Date Time Pulse Ox 100 04/01 2145 B/P 143/89 04/01 2145 B/P Mean 107 04/01 2145 O2 Delivery Room air 04/01 2145 Temp 99.0 04/01 2145 Pulse 94 04/01 2145 Resp 16 04/01 2145 All vital signs available at the time of this en try have been reviewed. Condition Stable Clinical Impression Clinical Impression Primary Impression: Dental abscess Disposition Decision Discharge )( Discharged to Home Yes )( Time 2217 )( Date 04/01/21 Discharge/Care Plan Counseled Regarding Diagnosis, Need for follow-u p, When to return to ED (Auto) Prescriptions Current Visit Scripts clindamycin Hcl (Cleocin) 450 MG PO Q8H 7 Days #63 CAPS Famotidine (Pepcid) 20 MG PO BID Famotidine (Pepcid) 20 MG PO BID #14 TABS Ibuprofen (Advil) 600 MG PO Q6H PRN PRN pain/fev er Ibuprofen (Advil) 600 MG PO Q6H PRN PRN pain/fe clive #32 TABS Take as directed on label. Acetaminophen (Tylenol) 3 TAB PO Q6H PRN PAIN/ F EVER Acetaminophen (Tylenol) 3 TAB PO Q6H PRN PAIN/ FEVER #30 TABS Take according to directions on label. Patient Instructions ED Dental Abscess Departure Forms [facility] Discharge Note I have spoken with the patie nt and/or caregivers. I have explained the patient's condition, diagnoses and taylor atment plan based on the information available to me at this time. I have answered the patient's and/ or caregiver's questions and addressed any concerns. The patient and/or careg denilson have as good an understanding of the patient 's diagnosis, condition and treatment plan as can be expected at this point. The vital signs have bee n stable. The patient's condition is stable and appr opriate for discharge from the emergency department. The patient will pursue further outpatient evalu ation with the primary care physician or other designated or consulting phys ician as outlined in the discharge instructions. The patient and/or caregivers are agreeable to this plan of care and follow-up instructions have been exp lained in detail. The patient and/or caregivers have received these instructio ns in written format and have expressed an understanding of the discharge inst ructions. The patient and/or caregivers are aware that any significant change in condition or worsening of symptoms should prompt an immediate return to [facility] or the closest emergency department or a call to 911. Quality Measures BP F/U for HTN F/u with PCP/other doc Electronically Signed by Damian Whitt MD on at 0315 RPT #:[id number] END OF REPORT 2020-10-19 23:43:00-00:00 [facility] ([facility]) EMERGENCY PROVIDER REPORT REPORT#:[id number] REPORT STATUS: Signed DATE:10/19/20 TIME: 2343 PATIENT: SEBAS LOU UNIT #: [id number] ROOM: BED: AGE: 24 SEX: F PCP PHYS: No Primary or Family Ph ysician SERVICE AUTHOR: Damian Whitt MD * ALL edits or amendments must be made on the el Yatra/computer document * HPI-General Illness Free Text HPI Notes Free Text HPI Notes 24 y/o F reports to the ED w ith Left shoulder, back, and abdominal pain starting 1 week ago. Pt says that she recently had a fall a work a week ago, but she fell on the right side of her body. For the past week she has had pain to her left side. She says she has tried self soothing methods to the area, like warm baths and massages, with no relief. Pt denied fever, c hills, N/V. She notes her menstrual cycle was roughly 1.5 weeks ago. She a dmits to have having ovarian cysts that rupture, but claims that this pain is n't familiar to her. She mentions that she has been feeling some exhausti on from work, but attributes that to not having a vacatio n in some time. Pt says that a few days ago she too 800mg Ibuprofen and Adderall. Pt has a pmhx of HTN, acute COPD, Ovarian cysts. General Confirmed Patient Yes Patient Type New patient Initial Greet Date/Time 10/19/202239 Presentation Chief Complaint Abdominal pa in (left side), Left Shoulder pain , Back pain- Left sided Hx Obtained From Patient Onset Occurred Weeks ago Symptom Duration Constant Progression since Onset Constant Caused by No trauma by history Quality Painful Radiation Does not radiate. Severity: Onset Moderate Severity: Current Moderate Review of Systems ROS Statements All systems rev neg except as marked. Free Text ROS Notes Free Text ROS Notes See HPI, 10 point review of systems otherwise ne gative Past Medical History - Adult Stated Complaint L SHOULDER PAIN, LUQ PAIN Allergies Coded Allergies: Penicillins (Intermediate, HIVES 10/19/20) Sulfa (Sulfonamide Antibiotics) (Intermediate, H CASTRO 10/19/20) Calculated Suicide Risk (nurs) No risk Review of Nursing Notes Rev avail, and agree Pt reports no significant: Family history Additional Medical History HTN, Acute COPD, and Ovarian cysts Smoking status: Smoking status for patients 13 years old or old er: Current some day smoker Physical Exam Vital Signs Vital Signs First Documented: Result Date Time Pulse Ox 97 10/19 2238 B/P 143/86 10/19 2238 B/P Mean 105 10/19 2238 O2 Delivery Room air 10/19 2238 Temp 98.5 10/19 2238 Pulse 105 10/19 2238 Resp 10/19 Last Documented: Result Date Time Pulse Ox 97 10/19 2238 B/P 143/86 10/19 2238 B/P Mean 105 10/19 2238 O2 Delivery Room air 10/19 2238 Temp 98.5 10/19 2238 Pulse 105 10/19 2238 Resp 18 10/19 2238 Review of Vital Signs Reviewed Free Text PE Notes Free Text PE Notes CONSTITUTIONAL: Well developed, well nourished. No acute distress. HEAD: Scalp is atraumatic. Normocephalic. EYES: PERRL. EOMI. Conjunctivae are not injected . ENT: Moist mucus membranes. NECK: Full ROM. No Stridor. CARDIOVASCULAR: Regular rhythm, rate. No murmurs , rubs, or gallops. RESPIRATORY/CHEST: No respiratory distress. No t achypnea.Tenderness over the prectoralis major. Full range of motion of the l eft shoulder. ABDOMEN/BACK: Soft and non-distended. No n-TTP. No CVA TTP. LLQ/ LUQ tenderness to palpation. No guarding. No rebound. EXTREMITIES: No C/C/E. FROM in all extremities. No calf tenderness. SKIN: Warm, dry intact. No petechiae, purpura, r ashes. NEURO: AAO x 3 and situation. Normal speech. PSYCH: Good eye contact. Normal interaction, aff ect, and behavior. Interpretation Diagnostics Lab Results Interpretation Results Laboratory Tests 10/19/202299: [Embedded Image Not Available] Laboratory Tests: 10/19 10/19 2244 2244 Urines Urine Color (YELLOW) Light-Yellow Urine Appearance (CLEAR) CLEAR Urine pH (4.5 - 8.5) 6.0 Ur Specific [place] (1.000 - 1.030) 1.020 Urine Protein (NEGATIVE MG/DL) NEG Urine Glucose (UA) (NEGATIVE MG/DL) NEG Urine Ketones (NEGATIVE MG/DL) NEG Urine Blood (NEGATIVE) NEG Urine Nitrite (NEGATIVE) NEG Urine Bilirubin (NEGATIVE) NEG Urine Urobilinogen (<=1.0 EU/dL) NORMAL Ur Leukocyte Esterase (NEGATIVE) NEG Urine RBC (0 - 3 /HPF) 0-3 Urine WBC (0 - 3 /HPF) 0-3 Ur Squamous Epith Cells (NONE - FEW /HPF) RARE Urine Bacteria (NONE SEEN /HPF) NONE SEEN Urine Mucus (NONE - FEW /LPF) RARE Urine HCG, Qual (NEGATIVE) NEGATIVE 10/19 2299 Chemistry Sodium (136 - 145 mmol/L) 139 Potassium (3.6 - 5.2 MMOL/L) 3.6 Chloride (98 - 110 MMOL/L) 104 Carbon Dioxide (24 - 32 mEq/L) 27 BUN (7 - 18 mg/dL) 20 H Creatinine (0.60 - 1.30 mg/dL) 0.94 Glomerular Filtr Rate (>60) >=60 max estimate Glucose (70 - 110 mg/dL) 104 Calcium (8.6 - 10.3 mg/dL) 9.1 Total Bilirubin (0.2 - 1.0 mg/dL) 0.6 AST (10 - 42 UNITS/L) 26 ALT (10 - 40 UNITS/L) 29 Total Alk Phosphatase (34 - 104 UNITS/L) 95 Total Protein (6.0 - 8.3 g/dL) 7.5 Albumin (3.2 - 5.5 g/dL) 4.2 Hematology WBC (5.0 - 12.0 K/mm3) 9.14 RBC (4.20 - 5.40 M/mm3) 4.66 Hgb (12.0 - 16.0 G/DL) 13.3 Hct (34.9 - 44.5 %) 40.5 MCV (81 - 99 fL) 87 MCH (27 - 31 PGM) 28.5 MCHC (33 - 37 G/DL) 32.8 L RDW (11.6 - 16.2 %) 12.4 Plt Count (130 - 400 K/mm3) 288 MPV (7.4 - 10.4 fl) 10.2 Neut % (Auto) (43 - 65 %) 66.3 H Lymph % (Auto) (20.5 - 45.5 %) 24.9 [place] % (Auto) (5.5 - 11.7 %) 6.3 Eos % (Auto) (0.9 - 2.9 %) 1.9 Baso % (Auto) (0.2 - 1.0 %) 0.4 Neut # (Auto) (2.2 - 4.8 K/mm3) 6.05 H Lymph # (Auto) (1.3 - 2.9 K/mm3) 2.28 [place] # (Auto) (0.3 - 0.8 K/mm3) 0.58 Eos # (Auto) (0.0 - 0.2 K/MM3) 0.17 Baso # (Auto) (0.0 - 0.1 K/mm3) 0.04 Immature Gran % (0.0 - 2.0 %) 0.2 Nucleated RBC % (0 - 1.0 %) 0.0 Recent Impressions: RADIOLOGY - XR CHEST 1 V 10/19 2349 Report Impression - Status: SIGNED Entered: 10/20/2020 0015 IMPRESSION: Negative chest radiograph. Impression By: [email or web address] - Meliza Escobar MD ULTRASOUND - US PELVIC COMPLETE 10/20 0100 Report Impression - Status: SIGNED Entered: 10/20/2020 0122 IMPRESSION: No significant sonographic abnormality given jackson itations of examination. Impression By: [email or web address] - Dylon Cueto MD Lab Imaging Statement Laboratory radiographic studies reviewed and con sidered in the medical decision-making. Point of Care Testing Pulse Oximetry Pulse Ox % 97 On: Room air Interpretation Interpreted by me, Pulse oximetr y normal Time 2238 ECG #1 Interpretation Text/Dict Note EKG interpreted by myself performed at 2359 show s sinus rhythm 82 bpm with normal intervals normal axis. No ST or T wave ab normalities noted Re-Evaluation MDM Re-Evaluation/Progress #1 Time of Re-Eval 0115 Re-Eval Status Improved Plan Post Re-Eval Plan discharge Re-Evaluation/Progress #2 Text/Dict Note Pt politely refused transvaginal ultrasound Time of Eval 0108 Patient Discharge Departure Vital Signs/Condition Vital Signs First Documented: Result Date Time Pulse Ox 97 10/19 2238 B/P 143/86 10/19 223 B/P Mean 105 10/19 223 O2 Delivery Room air 10/19 2238 Temp 98.5 10/19 2238 Pulse 105 10/19 2239 Resp 18 10/19 2238 Last Documented: Result Date Time Pulse Ox 97 10/19 2238 B/P 143/86 10/19 223 B/P Mean 105 10/19 223 O2 Delivery Room air 10/19 2238 Temp 98.5 10/19 2238 Pulse 105 10/19 2239 Resp 18 10/19 2238 All vital signs available at the time of this en try have been reviewed. Condition Stable Clinical Impression Clinical Impression Primary Impression: Abdominal pain Secondary Impressions: Non-cardiac chest pain Disposition Decision Discharge )( Discharged to Home Yes )( Time 012 )( Date 10/20/20 Discharge/Care Plan Patient Instructions ED Abdominal Pain Unknown . .., ED Chest Pain, Noncardiac Referrals Ramon Fuentes MD: 2-3 Days Discharge Note I have spoken with the patie nt and/or caregivers. I have explained the patient's condition, diagnoses and taylor atment plan based on the information available to me at this time. I have answered the patient's and/ or caregiver's questions and addressed any concerns. The patient and/or careg denilson have as good an understanding of the patient 's diagnosis, condition and treatment plan as can be expected at this point. The vital signs have bee n stable. The patient's condition is stable and appr opriate for discharge from the emergency department. The patient will pursue further outpatient evalu ation with the primary care physician or other designated or consulting phys ician as outlined in the discharge instructions. The patient and/or caregivers are agreeable to this plan of care and follow-up instructions have been exp lained in detail. The patient and/or caregivers have received these instructio ns in written format and have expressed an understanding of the discharge inst ructions. The patient and/or caregivers are aware that any significant change in condition or worsening of symptoms should prompt an immediate return to [facility] or the closest emergency department or a call to 911. Electronically Signed by Damian Whitt MD on at 0325 RPT #:[id number] END OF REPORT
[2022-10-25] MEDS ORDERED: ONDANSETRON 4 MG/2 ML VIAL ONE (22:13)
[2022-10-25] MEDS ORDERED: FAMOTIDINE 20 MG/2 ML VIAL IV ONE (22:13)
[2022-10-25] MEDS ORDERED: NA CHLORIDE 0.9% 1,000 ML ONE ×2 (22:13→23:43)
[2022-10-25 22:20] LABS: Absolute Lymphocytes (CBC) 1.2 K/uL (0.7-4.9); Hematocrit 41.9 % (36.0-45.0); Lymphocytes % 20.2 % (15.3-44.8); MCV 88.2 fL (80-100); MPV 8.3 fL (7.6-11.3); RBC Red Blood Cell Count 4.75 M/uL (3.86-4.86)
[2022-10-25 22:38] LABS: Albumin 3.8 g/dL (3.4-5.0); Bilirubin Total 0.2 mg/dL (0.2-1.0); Potassium 3.7 mEq/L (3.5-5.1); Protein, Total 7.7 g/dL (6.4-8.2)
[2022-10-26 00:24] LABS: Specific Gravity 1.006 (1.005-1.030); Urine Bilirubin NEGATIVE (Negative); Urine Blood Negative (Negative); Urine Clarity Clear (Clear); Urine Color Colorless (Yellow); Urine Glucose NEGATIVE (Negative); Urine Protein NEGATIVE (Negative); Urine Urobilinogen Normal (Normal); Urine pH 5.5 (5.0-7.0)
[2022-10-26 00:41] LABS: Barbiturates NEGATIVE (NEGATIVE); Benzodiazepines NEGATIVE (NEGATIVE); Cocaine NEGATIVE (NEGATIVE); METHAMPHETAM NEGATIVE (NEGATIVE); Methadone NEGATIVE (NEGATIVE); Opiates POSITIVE (NEGATIVE); Phencyclidine NEGATIVE (NEGATIVE); THC Cannibis POSITIVE (NEGATIVE)
--- NOTE | 2022-10-26 01:28 | EDPHYS ---
Physician Documentation [facility] Name: Oli Mcneil Age: 26 yrs Sex: Female : 1995 Arrival Date: 10/25/2022 Time: 21:24 Bed 4 Private MD: ED Physician Alessandro Juan HPI: 10/25 22:10 This 26 yrs old Female presents to ER via Ambulatory with complaints of Dehydration. cp 22:10 The patient presents with abdominal pain in the lower abdomen. cp 22:10 The patient presents to the emergency department with nausea, vomiting, that is cp intermittent, diarrhea, that is intermittent. Onset: The symptoms/episode began/occurred today. Possible causes: working outside today and consuming alcohol. Associated signs and symptoms: Pertinent negatives: fever, GI bleeding. Historical: - Allergies: 21:52 PENICILLINS; as6 21:52 Sulfa (Sulfonamide Antibiotics); as6 - PMHx: 21:52 adhd; HTN; as6 - PSHx: 21:52 None; as6 - Immunization history:: Client reports receiving the De \T\ De single-dose vaccine. - Social history:: Smoking status: Reported history of juuling and/or vaping. ROS: 22:15 Constitutional: Positive for poor PO intake, Negative for fever. cp 22:15 Eyes: Negative for injury, pain, redness, and discharge. cp 22:15 ENT: Negative for drainage from ear(s), ear pain, sore throat, difficulty swallowing, difficulty handling secretions. 22:15 Cardiovascular: Negative for chest pain, edema, palpitations. 22:15 Respiratory: Negative for cough, shortness of breath, wheezing. 22:15 Abdomen/GI: Positive for abdominal pain, nausea and vomiting, diarrhea, anorexia, Negative for constipation. 22:15 Back: Negative for pain at rest, pain with movement. 22:15 Neuro: Negative for altered mental status, headache, weakness. 22:15 : Negative for urinary symptoms. cp 22:15 All other systems are negative. Exam: 22:20 Constitutional: The patient appears in no acute distress, alert, awake, non-toxic, well cp developed, well nourished. 22:20 Head/Face: Normocephalic, atraumatic. cp 22:20 Eyes: Periorbital structures: appear normal, Conjunctiva: normal, no exudate, no injection, Sclera: no appreciated abnormality, Lids and lashes: appear normal, bilaterally. 22:20 ENT: External ear(s): are unremarkable, Nose: is normal, Mouth: Lips: moist, Oral mucosa: moist, Posterior pharynx: is normal, airway is patent, no erythema, no exudate. 22:20 Chest/axilla: Inspection: normal. 22:20 Cardiovascular: Rate: normal, Rhythm: regular. 22:20 Respiratory: the patient does not display signs of respiratory distress, Respirations: normal, no use of accessory muscles, no retractions, labored breathing, is not present, Breath sounds: are clear throughout, no decreased breath sounds, no stridor, no wheezing. 22:20 Abdomen/GI: Inspection: abdomen appears normal, Bowel sounds: active, all quadrants, Palpation: soft, in all quadrants, mild abdominal tenderness, in the left lower quadrant, rebound tenderness, is not appreciated, involuntary guarding, is not appreciated. 22:20 Back: CVA tenderness, is absent. 22:20 Neuro: Orientation: to person, place \T\ time. Mentation: is normal, Motor: moves all fours, strength is normal, Gait: is steady. Vital Signs: 21:47 BP 113 / 67; Pulse 76; Resp 18 S; Temp 98.1(TE); Pulse Ox 99% on R/A; Weight 70.76 kg as6 (R); Height 5 ft. 8 in. (R); Pain 0/10; 23:35 BP 100 / 65; Pulse 65; Resp 19; Pulse Ox 96% ; kd3 10/26 00:30 BP 115 / 60; Pulse 77; Resp 16; Pulse Ox 98% on R/A; ll3 01:30 BP 111 / 93; Pulse 69; Resp 15; Pulse Ox 96% ; ll3 10/25 21:47 Body Mass Index 23.72 (70.76 kg, 172.72 cm) as6 10/25 21:47 Pain Scale: Adult as6 MDM: 10/25 21:54 Patient medically screened. cp 23:00 Differential diagnosis: gastritis, cholecystitis, pancreatitis, appendicitis, cp diverticulitis, viral gastroenteritis, gastroenteritis, gastritis, non-specific abd pain, Ovarian Torsion. 10/26 01:25 Data reviewed: vital signs, nurses notes, lab test result(s), EKG, radiologic studies, cp CT scan. 01:25 Consideration of Admission/Observation Escalation of care including cp admission/observation considered. I considered the following discharge prescriptions or medication management in the emergency department Medications were administered in the Emergency Department. See MAR. Care significantly affected by the following chronic conditions: Hypertension. Counseling: I had a detailed discussion with the patient and/or guardian regarding: the historical points, exam findings, and any diagnostic results supporting the discharge/admit diagnosis, lab results, radiology results, to return to the emergency department if symptoms worsen or persist or if there are any questions or concerns that arise at home. Response to treatment: the patient's symptoms have markedly improved after treatment, and as a result, I will discharge patient. Special discussion: Based on the patient's Hx, exam, and Dx evaluation, there is no indication for emergent surgery or inpatient Tx. It is understood by the patient/guardian that if the Sx's persist or worsen they need to return immediately for re-evaluation. 10/25 22:02 Order name: CBC with Diff; Complete Time: 22:49 cp 10/25 22:02 Order name: CMP; Complete Time: 22:49 cp 10/25 22:49 Interpretation: Normal except: GFR 86; GLOB 3.9; A/G 1.0. cp 10/25 22:02 Order name: Lipase; Complete Time: 22:49 cp 10/26 00:41 Interpretation: Reviewed. 10/25 22:02 Order name: Test, Urine; Complete Time: 00:40 cp 10/25 22:02 Order name: Urinalysis w/ reflexes; Complete Time: 00:40 cp 10/25 22:02 Order name: ETOH Level; Complete Time: 22:49 cp 10/26 00:40 Interpretation: Reviewed. cp 10/25 22:02 Order name: UDS cp 10/25 22:50 Order name: CT Abd/Pelvis - IV Contrast Only cp 10/25 22:02 Order name: IV Saline Lock; Complete Time: 22:13 cp 10/25 22:02 Order name: Labs collected and sent; Complete Time: 22:13 cp Administered Medications: 10/25 22:28 Drug: NS 0.9% IV 1000 ml Route: IV; Rate: 1 bolus; Site: right antecubital; ll3 23:41 Follow up: Response: No adverse reaction; IV Status: Completed infusion; IV Intake: ll3 1000ml 22:28 Drug: Famotidine IVP 20 mg Route: IVP; Site: right antecubital; ll3 23:41 Follow up: Response: No adverse reaction ll3 22:28 Drug: Ondansetron IVP 4 mg Route: IVP; Site: right antecubital; ll3 23:41 Follow up: Response: No adverse reaction ll3 23:40 Drug: NS 0.9% IV 1000 ml Route: IV; Rate: 1 bolus; Site: left antecubital; ll3 10/26 01:40 Follow up: Response: No adverse reaction; IV Status: Completed infusion; IV Intake: ll3 1000ml Disposition: 19:27 Co-signature as Attending Physician, Norberto TAO I agree with the assessment and plan sp4 of care. I reviewed the patient's care provided by the Advanced Practice Provider and agree with the diagnosis and treatment plan. Disposition Summary: 10/26/22 01:27 Discharge Ordered Location: Home cp Problem: new cp Symptoms: have improved cp Condition: Stable cp Diagnosis - Nausea with vomiting, unspecified cp - Lower abdominal pain, unspecified cp Followup: cp - With: Private Physician - When: 2 - 3 days - Reason: Recheck today's complaints Discharge Instructions: - Discharge Summary Sheet cp - Abdominal Pain, Adult cp - Nausea and Vomiting, Adult cp Forms: - Medication Reconciliation Form cp - Thank You Letter cp - Antibiotic Education cp - Prescription Opioid Use cp Prescriptions: - Zofran 4 mg Oral Tablet - take 1 tablet by ORAL route every 12 hours As needed; 20 tablet; Refills: 0, cp Product Selection Permitted Signatures: Dispatcher [employer] EDNorberto Connor PA PA cp Héctor Spencer RN RN as6 Janet Simmons RN RN ll3 Alessandro Juan MD MD sp4
--- NOTE | 2022-10-26 01:28 | ER ---
Nurse's Notes [facility] Name: Oli Mcneil Age: 26 yrs Sex: Female : 1995 Arrival Date: 10/25/2022 Time: 21:24 Bed 4 Private MD: Diagnosis: Nausea with vomiting, unspecified;Lower abdominal pain, unspecified Presentation: 10/25 21:47 Chief complaint: Parent and/or Guardian states: "I think she has heat exhaustion. We as6 have been working outside in the heat all day and she has also been drinking". Coronavirus screen: At this time, the client does not indicate any symptoms associated with coronavirus-19. Ebola Screen: No symptoms or risks identified at this time. Initial Sepsis Screen: Does the patient meet any 2 criteria? No. Patient's initial sepsis screen is negative. Does the patient have a suspected source of infection? No. Patient's initial sepsis screen is negative. Risk Assessment: Do you want to hurt yourself or someone else? Patient reports no desire to harm self or others. Onset of symptoms was October 25, 2022. 21:47 Acuity: YESENIA 3 as6 21:47 Method Of Arrival: Ambulatory as6 Historical: - Allergies: 21:52 PENICILLINS; as6 21:52 Sulfa (Sulfonamide Antibiotics); as6 - PMHx: 21:52 adhd; HTN; as6 - PSHx: 21:52 None; as6 - Immunization history:: Client reports receiving the De \\T\\ De single-dose vaccine. - Social history:: Smoking status: Reported history of juuling and/or vaping. Screenin:01 [facility] ED Fall Risk Assessment (Adult) History of falling in the last 3 months, kd3 including since admission No falls in past 3 months (0 pts) Confusion or Disorientation No (0 pts) Intoxicated or Sedated No (0 pts) Impaired Gait No (0 pts) Mobility Assist Device Used No (0 pt) Altered Elimination No (0 pt) Score/Fall Risk Level 0 - 2 = Low Risk Maintained a safe environment. Abuse screen: Denies threats or abuse. Denies injuries from another. Nutritional screening: No deficits noted. Tuberculosis screening: No symptoms or risk factors identified. Assessment: 22:30 General: Appears comfortable, ill, Behavior is calm, cooperative. Pain: Denies pain. ll3 Neuro: Level of Consciousness is awake, obeys commands, lethargic, Oriented to person, place, time, situation. Respiratory: Respiratory effort is even, unlabored, Respiratory pattern is regular, symmetrical. GI: Reports nausea, vomiting. Derm: Skin is clammy. 23:30 Reassessment: No changes from previously documented assessment. Patient and/or family ll3 updated on plan of care and expected duration. Pain level reassessed. Patient is alert, oriented x 3, equal unlabored respirations, skin warm/dry/pink. Vital Signs: 21:47 BP 113 / 67; Pulse 76; Resp 18 S; Temp 98.1(TE); Pulse Ox 99% on R/A; Weight 70.76 kg as6 (R); Height 5 ft. 8 in. (R); Pain 0/10; 23:35 BP 100 / 65; Pulse 65; Resp 19; Pulse Ox 96% ; kd3 10/26 00:30 BP 115 / 60; Pulse 77; Resp 16; Pulse Ox 98% on R/A; ll3 01:30 BP 111 / 93; Pulse 69; Resp 15; Pulse Ox 96% ; ll3 10/25 21:47 Body Mass Index 23.72 (70.76 kg, 172.72 cm) as6 10/25 21:47 Pain Scale: Adult as6 ED Course: 10/25 21:26 Patient arrived in ED. ja2 21:27 Norberto Krishnan PA is PHCP. cp 21:27 Alessandro Juan MD is Attending Physician. cp 21:52 Triage completed. as6 21:52 Arm band placed on. as6 22:13 ETOH Level Sent. bc6 22:13 CBC with Diff Sent. bc6 22:13 CMP Sent. bc6 22:13 Lipase Sent. bc6 22:13 Inserted saline lock: 20 gauge in right antecubital area, using aseptic technique. bc6 23:00 Jessica Mccullough, RN is Primary Nurse. kd3 10/26 00:16 UDS Sent. kd3 00:16 Urinalysis w/ reflexes Sent. kd3 00:16 Test, Urine Sent. kd3 01:02 CT Abd/Pelvis - IV Contrast Only In Process Unspecified. EDMS 01:40 No provider procedures requiring assistance completed. IV discontinued, intact, ll3 bleeding controlled, No redness/swelling at site. Pressure dressing applied. 01:41 Patient has correct armband on for positive identification. Bed in low position. Call ll3 light in reach. Side rails up X 1. Administered Medications: 10/25 22:28 Drug: NS 0.9% IV 1000 ml Route: IV; Rate: 1 bolus; Site: right antecubital; ll3 23:41 Follow up: Response: No adverse reaction; IV Status: Completed infusion; IV Intake: ll3 1000ml 22:28 Drug: Famotidine IVP 20 mg Route: IVP; Site: right antecubital; ll3 23:41 Follow up: Response: No adverse reaction ll3 22:28 Drug: Ondansetron IVP 4 mg Route: IVP; Site: right antecubital; ll3 23:41 Follow up: Response: No adverse reaction ll3 23:40 Drug: NS 0.9% IV 1000 ml Route: IV; Rate: 1 bolus; Site: left antecubital; ll3 10/26 01:40 Follow up: Response: No adverse reaction; IV Status: Completed infusion; IV Intake: ll3 1000ml Medication: 01:41 VIS not applicable for this client. ll3 Intake: 10/25 23:41 IV: 1000ml; Total: 1000ml. ll3 10/26 01:40 IV: 1000ml; Total: 2000ml. ll3 Outcome: 01:27 Discharge ordered by . cp 01:40 Discharged to home ambulatory. ll3 01:40 Condition: stable 01:40 Discharge instructions given to patient, Instructed on discharge instructions, follow up and referral plans. medication usage, Demonstrated understanding of instructions, follow-up care, medications, Prescriptions given X 1. 01:49 Patient left the ED. ll3 Signatures: Dispatcher [employer] EDMS Norberto Krishnan PA PA cp Alexander, Jessica ja2 Slawson, Ashby, RN RN as6 Janet Simmons RN RN ll3 Jessica Mccullough RN RN kd3 Pat Lo 6
[2022-10-26 02:27] VITALS: TEMP 98.1
[2022-10-26 02:35] VITALS: BP 111/93; O2SAT 96
--- NOTE | 2022-10-27 14:22 | RAD REPORT ---
EXAM DESCRIPTION: CT - Abdomen Pelvis W Contrast - 10/26/2022 2:27 am CLINICAL HISTORY: The patient is 26 years old and is Female; ABD PAIN TECHNIQUE: Axial computed tomography images of the abdomen and pelvis with intravenous contrast. S agittal and coronal reformatted images were created and reviewed. This CT exam was performed using one or more of the following dose reduction techniques: automated exposure control, adjustment of t he mA and/or kV according to patient size, and/or use of iterative reconstruction technique. COMPARISON: No relevant prior studies available. FINDINGS: Lung bases: Unremarkable. No mass. No consolidation. ABDOMEN: Liver: Unremarkable. No mass. Gallbladder and bile ducts: Unremarkable. No calcified stones. No ductal dilation. Pancreas: Unremarkable. No mass. No ductal dilation. Spleen: Unremarkable. No splenomegaly. Adrenals: Unremarkable. No mass. Kidneys and ureters: Unremarkable. No solid mass. No hydronephrosis. Stomach and bowel: Unremarkable. No obstruction. No mucosal thickening. PELVIS: Appendix: No findings to suggest acute appendicitis. Bladder: Unremarkable. Reproductive: 1.5 cm simple left ovarian cyst. No follow-up imaging is recommended. ABDOMEN and PELVIS: Intraperitoneal space: Unremarkable. No free air. No significant fluid collection. Bones/joints: No acute fracture. No dislocation. Soft tissues: Unremarkable. Vasculature: Unremarkable. No abdominal aortic aneurysm. Lymph nodes: Unremarkable. No enlarged lymph nodes. IMPRESSION: No acute finding in the abdomen/pelvis. Electronically signed by: Sandro Callahan MD 10/26/2022 1:20 AM CDT Due to temporary technical issues with the PACS/Fluency reporting system, reports are being signed by the in house radiologist without review as a courtesy to ensure prompt reporting. The interpreting r adiologist is fully responsible for the content of the report.
== END 2022-10-26 01:49 | disposition home or self-care (01) ==
LOC: ER 21:24
DX: R11.2 Nausea with vomiting, unspecified (principal); R10.32 Left lower quadrant pain
CPT/HCPCS: 36415; 74177; 80053; 80307; 81003; 81025; 82077; 83690; 85025; 96361; 96374; 96375; 99284; J2405; J7030; Q9967

== ENCOUNTER 2023-08-18 16:03 | Emergency (ER) | payer SELFPAY ==
--- NOTE | 2023-08-18 17:15 | EDPHYS ---
Physician Documentation [facility] Name: Oli Mcneil Age: 27 yrs Sex: Female : 1995 Arrival Date: 08/18/2023 Time: 16:03 Bed Treatment Private MD: ED Physician Jose Goff HPI: 08/17 17:41 This 27 yrs old Female presents to ER via Ambulatory with complaints of Abdominal Pain. kb 17:41 Pt is a 27 year old female who presents for suprapubic/LLQ pain that started 3 days kb ago. Denies n/v/d/fever. Reports urinary frequency. Denies dysuria.. 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 - Infectious Disease History:: Denies. - Social history:: Smoking status: Patient denies any tobacco usage or history of. ROS: 17:38 Constitutional: As per HPI kb Exam: 17:38 Constitutional: This is a well developed, well nourished patient who is awake, alert, kb and in no acute distress. Head/Face: Normocephalic, atraumatic. ENT: Moist Mucous membranes Cardiovascular: Regular rate Respiratory: Respirations even and unlabored. No increased work of breathing. Talking in full sentences Skin: Warm, dry with normal turgor. Normal color. MS/ Extremity: Pulses equal, no cyanosis. Neurovascular intact. Full, normal range of motion. Neuro: Awake and alert, GCS 15, oriented to person, place, time, and situation. Moves all extremities. Normal gait. 17:38 Abdomen/GI: Inspection: abdomen appears normal, Bowel sounds: normal, Palpation: soft, in all quadrants, moderate abdominal tenderness, in the suprapubic area, Vital Signs: 16:36 BP 134 / 90; Pulse 84; Resp 18 S; Temp 97.9; Pulse Ox 96% on R/A; Weight 77.11 kg (R); as6 Height 5 ft. 7 in. (R); Pain 4/10; 16:36 Body Mass Index 26.63 (77.11 kg, 170.18 cm) as6 16:36 Pain Scale: Adult as6 MDM: 16:11 Patient medically screened. kb 17:38 Differential diagnosis: non-specific abd pain, Ureterolithiasis, urinary tract kb infection, ovarian cyst, . Data reviewed: vital signs, nurses notes. Test considered but Not performed: Labs: cbc, cmp and CT abd considered but pt states she does not have time to have those done. Requests a urinalysis and test at this time. States she will return for the rest if symptoms persist. Counseling: I had a detailed discussion with the patient and/or guardian regarding the historical points, exam findings, and any diagnostic results supporting the discharge/admit diagnosis, the need for outpatient follow up, a family practitioner, to return to the emergency department if symptoms worsen or persist or if there are any questions or concerns that arise at home. ED course: Pt states she needs to leave. States she will return for worsening symptoms. . 08/17 16:46 Order name: Test, Urine; Complete Time: 18:45 kb 08/17 16:46 Order name: Urinalysis w/ reflexes; Complete Time: 18:45 kb Administered Medications: No medications were administered Disposition Summary: 08/18/23 17:14 Discharge Ordered Notes: Location: Home kb Condition: Stable kb Diagnosis - Lower abdominal pain, unspecified kb Followup: kb - With: Emergency Department - When: As needed - Reason: Worsening of condition Followup: kb - With: Private Physician - When: 2 - 3 days - Reason: Recheck today's complaints, Continuance of care, Re-evaluation by your physician Discharge Instructions: - Discharge Summary Sheet kb - Pelvic Pain, Female, [id number] kb - Abdominal Pain, Adult, [id number] kb Forms: - Medication Reconciliation Form kb - Thank You Letter kb - Patient Portal Instructions kb - Leadership Thank You Letter kb Signatures: Dispatcher [employer] Loren Garza FNP-C FNP-Ckb Slawson, Ashby, RN RN as6
--- NOTE | 2023-08-18 17:15 | ER ---
Nurse's Notes [facility] Name: Oli Mcneil Age: 27 yrs Sex: Female : 1995 Arrival Date: 08/18/2023 Time: 16:03 Bed Treatment Private MD: Diagnosis: Lower abdominal pain, unspecified Presentation: 08/17 16:38 Chief complaint: Patient states: suprapubic pain. "I don't know if I have a UTI or I'm as6 ". Coronavirus screen: At this time, the client does not indicate any symptoms associated with coronavirus-19. Ebola Screen: No symptoms or risks identified at this time. Initial Sepsis Screen: Does the patient meet any 2 criteria? No. Patient's initial sepsis screen is negative. Does the patient have a suspected source of infection? No. Patient's initial sepsis screen is negative. Risk Assessment: Do you want to hurt yourself or someone else? Patient reports no desire to harm self or others. Onset of symptoms was August 15, 2023. 16:38 Method Of Arrival: Ambulatory as6 16:38 Acuity: YESENIA 4 as6 Triage Assessment: 16:39 General: Appears in no apparent distress. Behavior is calm, cooperative. Pain: as6 Complains of pain in suprapubic area. 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 - Infectious Disease History:: Denies. - Social history:: Smoking status: Patient denies any tobacco usage or history of. Screenin:17 [facility] ED Fall Risk Assessment (Adult) History of falling in the last 3 months, ll1 including since admission No falls in past 3 months (0 pts) Confusion or Disorientation No (0 pts) Intoxicated or Sedated No (0 pts) Impaired Gait No (0 pts) Mobility Assist Device Used No (0 pt) Altered Elimination No (0 pt) Score/Fall Risk Level 0 - 2 = Low Risk Oriented to surroundings, Hourly rounding (assess needs \\T\\ fall precautionary measures) done. Abuse screen: Denies threats or abuse. Nutritional screening: No deficits noted. Tuberculosis screening: No symptoms or risk factors identified. Assessment: 17:07 General: Appears in no apparent distress. comfortable, Behavior is calm, cooperative, nj1 appropriate for age. Neuro: No deficits noted. Cardiovascular: Patient's skin is warm and dry. 17:17 GI: Bowel sounds present X 4 quads. Abd is soft and non tender. ll1 Vital Signs: 16:36 BP 134 / 90; Pulse 84; Resp 18 S; Temp 97.9; Pulse Ox 96% on R/A; Weight 77.11 kg (R); as6 Height 5 ft. 7 in. (R); Pain 4/10; 16:36 Body Mass Index 26.63 (77.11 kg, 170.18 cm) as6 16:36 Pain Scale: Adult as6 ED Course: 16:06 Patient arrived in ED. mr 16:11 Loren Cuevas FNP-C is [facility]. kb 16:11 Jose Goff MD is Attending Physician. kb 16:39 Triage completed. as6 16:39 Arm band placed on. as6 17:07 Kristine Ruiz, RN is Primary Nurse. nj1 17:17 No provider procedures requiring assistance completed. Patient did not have IV access ll1 during this emergency room visit. 17:18 Patient has correct armband on for positive identification. Bed in low position. Call ll1 light in reach. Provided Education on: return for worsening symptoms. Administered Medications: No medications were administered Medication: 17:18 VIS not applicable for this client. ll1 Outcome: 17:14 Discharge ordered by . kb 17:17 Discharged to home ambulatory, ll1 17:17 Condition: stable 17:17 Discharge instructions given to patient, Instructed on discharge instructions, follow up and referral plans. Demonstrated understanding of instructions, follow-up care, 17:18 Patient left the ED. ll1 Signatures: Loren Cuevas FNP-C FNP-Marta Osborn, Mustapha Reg Navdeep Boo, RN RN ll1 Héctor Spnecer RN RN as6 Kristine Ruiz, LENA RN nj1
[2023-08-18 17:48] VITALS: BP 134/90; TEMP 97.9; O2SAT 96
[2023-08-18 18:21] LABS: Specific Gravity 1.017 (1.005-1.030)
[2023-08-18 18:24] LABS: Specific Gravity 1.012 (1.005-1.030); Urine Bilirubin NEGATIVE (Negative); Urine Blood Negative (Negative); Urine Clarity Clear (Clear); Urine Color Light-Yellow (Yellow); Urine Glucose NEGATIVE (Negative); Urine Ketones NEGATIVE (Negative); Urine Nitrite NEGATIVE (Negative); Urine Protein NEGATIVE (Negative); Urine Urobilinogen Normal (Normal)
[2023-08-18 18:25] LABS: Urine Microscopic Reflex YN NO UMIC
== END 2023-08-18 17:18 | disposition home or self-care (01) ==
LOC: ER 16:03
DX: R10.32 Left lower quadrant pain (principal)
CPT/HCPCS: 81003; 81025; 99282

== ENCOUNTER 2023-08-19 21:37 | Emergency (ER) | payer SELFPAY ==
[2023-08-19] MEDS ORDERED: NA CHLORIDE 0.9% 1,000 ML ONE (22:25)
[2023-08-19] MEDS ORDERED: KETOROLAC 30 MG/ML INJ ONE (22:25)
[2023-08-19 22:37] LABS: Absolute Eosinophils 0.1 K/uL (0-0.5); Absolute Lymphocytes (CBC) 1.7 K/uL (0.7-4.9); Absolute Monocytes 0.5 K/uL (0.1-1.3); Absolute Neutrophil 5.4 K/uL (1.8-8.0); Basophils % 0.2 % (0-1.3); Eosinophils % 1.2 % (0-4.4); Hematocrit 40.2 % (36.0-45.0); Hemoglobin 13.7 g/dL (12.0-15.0); Lymphocytes % 21.8 % (15.3-44.8); MCH 29.5 pg (27.0-35.0); MCHC 34.1 g/dL (32.0-36.0); MCV 86.7 fL (80-100); MPV 8.4 fL (7.6-11.3); Neutrophils % 70.8 % (41.7-73.7); Platelets 266 thou/uL (152-406); RBC Red Blood Cell Count 4.63 M/uL (3.86-4.86); Red Cell Distribution Width 13.2 % (12.1-15.2)
[2023-08-19 23:03] LABS: Albumin 3.8 g/dL (3.4-5.0); Albumin/Globulin Ratio 1.1 (1.1-1.8); Anion Gap 7.2 mEq/L (5.0-15.0); Bilirubin Total 0.3 mg/dL (0.2-1.0); Globulin 3.5 g/dL (2.3-3.5); Potassium 4.2 mEq/L (3.5-5.1); Protein, Total 7.3 g/dL (6.4-8.2)
--- NOTE | 2023-08-20 00:24 | ER ---
Nurse's Notes [facility] Name: Oli Mcneil Age: 27 yrs Sex: Female : 1995 Arrival Date: 08/19/2023 Time: 21:37 Bed 9 Private MD: Diagnosis: Lower abdominal pain, unspecified Presentation: 08/18 21:58 Chief complaint: Patient states: LLQ ABD pain for 4 days. Coronavirus screen: Client km8 denies travel out of the [place] in the last 14 days. Ebola Screen: No symptoms or risks identified at this time. Initial Sepsis Screen: Does the patient meet any 2 criteria? No. Patient's initial sepsis screen is negative. Does the patient have a suspected source of infection? No. Patient's initial sepsis screen is negative. Risk Assessment: Do you want to hurt yourself or someone else? Patient reports no desire to harm self or others. Onset of symptoms was August 15, 2023. 21:58 Method Of Arrival: Ambulatory [facility] 21:58 Acuity: YESENIA 3 km8 Triage Assessment: 21:59 General: Appears in no apparent distress. Behavior is calm, cooperative, appropriate km8 for age. Pain: Complains of pain in left lower quadrant Pain currently is 5 out of 10 on a pain scale. Quality of pain is described as dull. EENT: No signs and/or symptoms were reported regarding the EENT system. Neuro: Level of Consciousness is awake, alert, obeys commands, Oriented to person, place, time, situation. Cardiovascular: Denies chest pain, shortness of breath, Patient's skin is warm and dry. Respiratory: Airway is patent Respiratory effort is even, unlabored, Respiratory pattern is regular, symmetrical. GI: Abdomen is non-distended, Abdomen is tender to palpation in left lower quadrant Guarding noted in left lower quadrant. : No signs and/or symptoms were reported regarding the genitourinary system. Derm: Skin is intact, is healthy with good turgor, Skin is dry, Skin is pink, warm \T\ dry. normal, Skin temperature is warm. Musculoskeletal: No signs and/or symptoms reported regarding the musculoskeletal system. Range of motion: intact in all extremities. 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 - Infectious Disease History:: Denies. - Social history:: Smoking status: Patient reports the use of cigarette tobacco products, denies chronic smoking, but will smoke occasionally, Patient uses alcohol, occasionally. street drugs, marijuana. Screenin:37 [facility] ED Fall Risk Assessment (Adult) History of falling in the last 3 months, bm8 including since admission No falls in past 3 months (0 pts) Confusion or Disorientation No (0 pts) Intoxicated or Sedated No (0 pts) Impaired Gait No (0 pts) Mobility Assist Device Used No (0 pt) Altered Elimination No (0 pt) Score/Fall Risk Level 0 - 2 = Low Risk Oriented to surroundings, Maintained a safe environment, Educated pt \T\ family on fall prevention, incl call for assistance when getting out of bed. Abuse screen: Denies threats or abuse. Nutritional screening: No deficits noted. Tuberculosis screening: No symptoms or risk factors identified. Assessment: 22:37 Reassessment: Patient appears in no apparent distress at this time. Patient and/or bm8 family updated on plan of care and expected duration. Pain level reassessed. Patient is alert, oriented x 3, equal unlabored respirations, skin warm/dry/pink. General: Appears in no apparent distress. comfortable, Behavior is calm, cooperative, appropriate for age. Pain: Complains of pain in suprapubic area Pain does not radiate. Pain currently is 5 out of 10 on a pain scale. Quality of pain is described as crampy, dull. Neuro: Level of Consciousness is awake, alert, obeys commands, Oriented to person, place, time, situation, Appropriate for age. Cardiovascular: No deficits noted. Denies chest pain, lightheadedness, shortness of breath, Capillary refill < 3 seconds Patient's skin is warm and dry. Respiratory: No deficits noted. Airway is patent Respiratory effort is even, unlabored, Respiratory pattern is regular, symmetrical, Breath sounds are clear bilaterally. GI: Bowel sounds present X 4 quads. normoactive Abdomen is tender to palpation in suprapubic area Reports upper abdominal pain. : No deficits noted. No signs and/or symptoms were reported regarding the genitourinary system. EENT: No deficits noted. No signs and/or symptoms were reported regarding the EENT system. Derm: No deficits noted. No signs and/or symptoms reported regarding the dermatologic system. 08/19 00:25 Reassessment: Patient appears in no apparent distress at this time. Patient and/or km8 family updated on plan of care and expected duration. Pain level reassessed. Patient is alert, oriented x 3, equal unlabored respirations, skin warm/dry/pink. Patient states symptoms have improved. Vital Signs: 08/18 22:00 BP 122 / 87; Pulse 92; Resp 16; Temp 97.1(TE); Pulse Ox 99% ; Weight 77.11 kg; Height 5 km8 ft. 7 in. ; Pain 5/10; 22:37 BP 134 / 62; Pulse 77; Resp 17; Temp 97.1; Pulse Ox 100% ; Pain 5/10; bm8 08/19 00:25 BP 118 / 64; Pulse 78; Resp 16; Pulse Ox 100% on R/A; km8 08/18 22:00 Body Mass Index 26.63 (77.11 kg, 170.18 cm) [facility] 08/18 22:00 Pain Scale: Adult [facility] 22:37 Pain Scale: Adult [facility] Coma Score: 08/18 22:37 Eye Response: spontaneous(4). Motor Response: obeys commands(6). Verbal Response: bm8 oriented(5). Total: 15. ED Course: 21:39 Patient arrived in ED. jj6 21:42 Loren Cuevas FNP-C [facility]. kb 21:42 Alessandro Juan MD is Attending Physician. kb 21:59 Triage completed. km8 22:02 Arm band placed on right wrist. Patient placed in waiting room, Patient notified of km8 wait time. 22:17 Radiology exam delayed due to lab results not completed at this time. (BUN/Creatinine). eh4 22:17 Radiology exam delayed due to IV insertion attempt and/or patient not having eh4 appropriate IV at this time. 22:17 Radiology exam delayed due to test not completed at this time. eh4 22:18 Carlos Fregoso, RN is Primary Nurse. bm8 22:37 Patient has correct armband on for positive identification. Placed in gown. Bed in low bm8 position. Call light in reach. Side rails up X 1. Pulse ox on. NIBP on. Door closed. Noise minimized. Visitors limited. Lights dimmed. Warm blanket given. Verbal reassurance given. Head of bed elevated. 22:37 No provider procedures requiring assistance completed. Initial lab(s) drawn, by ok, luiz sent to lab. Inserted saline lock: 20 gauge in right antecubital area, using aseptic technique. Blood collected. 08/19 00:01 CT Abd/Pelvis - IV Contrast Only In Process Unspecified. EDMS 00:25 Provided Education on: d/c teaching. km8 00:25 IV discontinued, intact, bleeding controlled, No redness/swelling at site. Pressure km8 dressing applied. Administered Medications: 08/18 22:18 Drug: NS 0.9% IV 1000 ml IV at 1 bolus Per protocol; 1000 mL bolus Route: IV; Rate: 1 bm8 bolus; Site: right antecubital; 08/19 00:25 Follow up: IV Status: Completed infusion; IV Intake: 1000ml km8 08/18 22:18 Drug: TORadol - Ketorolac IVP 15 mg IVP once Route: IVP; Site: right antecubital; bm8 08/19 00:25 Follow up: Response: No adverse reaction; Pain is decreased km8 Medication: 08/18 22:37 VIS not applicable for this client. bm8 Intake: 08/19 00:25 IV: 1000ml; Total: 1000ml. km8 Outcome: 00:23 Discharge ordered by . dieter 00:30 Discharged to home ambulatory, km8 00:30 Condition: good 00:30 Discharge instructions given to patient, Instructed on discharge instructions, follow up and referral plans. Demonstrated understanding of instructions, follow-up care, 00:30 Patient left the ED. km8 Signatures: Dispatcher [employer] EDLoren Jacobson, SAFE AND VAULT INSTALLER-C SAFE AND VAULT INSTALLER-CkMilla Meléndez j6 Jaime Flower 4 Samantha Broderick RN RN km8 Carlos Fregoso, RN RN bm8 Corrections: (The following items were deleted from the chart) 00:26 00:25 Reassessment: Patient appears in no apparent distress at this time. Patient km8 and/or family updated on plan of care and expected duration. Pain level reassessed. Patient is alert, oriented x 3, equal unlabored respirations, skin warm/dry/pink. km8
--- NOTE | 2023-08-20 00:24 | EDPHYS ---
Physician Documentation [facility] Name: Oli Mcneil Age: 27 yrs Sex: Female : 1995 Arrival Date: 08/19/2023 Time: 21:37 Bed 9 Private MD: ED Physician Alessandro Juan HPI: 08/18 22:23 This 27 yrs old Female presents to ER via Ambulatory with complaints of Abdominal Pain. kb 22:23 Pt is a 27 year old female who presents for LLQ and suprapubic pain that started 4 days kb ago. Denies n/v/d, fever, urinary symptoms. Pt was seen by me yesterday, but didn't have time to stay for blood work or CT so she came back. Urinalysis done yesterday was normal, negative . 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 - Infectious Disease History:: Denies. - Social history:: Smoking status: Patient reports the use of cigarette tobacco products, denies chronic smoking, but will smoke occasionally, Patient uses alcohol, occasionally. street drugs, marijuana. ROS: 22:25 Constitutional: As per HPI kb Exam: 22:25 Constitutional: This is a well developed, well nourished patient who is awake, alert, kb and in no acute distress. Head/Face: Normocephalic, atraumatic. ENT: Moist Mucous membranes Cardiovascular: Regular rate Respiratory: Respirations even and unlabored. No increased work of breathing. Talking in full sentences Skin: Warm, dry with normal turgor. Normal color. MS/ Extremity: Pulses equal, no cyanosis. Neurovascular intact. Full, normal range of motion. Neuro: Awake and alert, GCS 15, oriented to person, place, time, and situation. Moves all extremities. Normal gait. 22:25 Abdomen/GI: Inspection: abdomen appears normal, Bowel sounds: normal, Palpation: soft, in all quadrants, moderate abdominal tenderness, in the suprapubic area and left lower quadrant, Vital Signs: 22:00 BP 122 / 87; Pulse 92; Resp 16; Temp 97.1(TE); Pulse Ox 99% ; Weight 77.11 kg; Height 5 km8 ft. 7 in. ; Pain 09/17; 22:37 BP 134 / 62; Pulse 77; Resp 17; Temp 97.1; Pulse Ox 100% ; Pain 5/10; bm8 08/19 00:25 BP 118 / 64; Pulse 78; Resp 16; Pulse Ox 100% on R/A; km8 08/18 22:00 Body Mass Index 26.63 (77.11 kg, 170.18 cm) [facility] 08/18 22:00 Pain Scale: Adult km 22:37 Pain Scale: Adult 8 Desean Coma Score: 08/18 22:37 Eye Response: spontaneous(4). Motor Response: obeys commands(6). Verbal Response: bm8 oriented(5). Total: 15. MDM: 21:42 Patient medically screened. kb 08/19 00:22 Differential diagnosis: non-specific abd pain, urinary tract infection, ovarian cyst. kb Data reviewed: vital signs, nurses notes. Counseling: I had a detailed discussion with the patient and/or guardian regarding the historical points, exam findings, and any diagnostic results supporting the discharge/admit diagnosis, lab results, radiology results, the need for outpatient follow up, an OB/Gyne specialist, to return to the emergency department if symptoms worsen or persist or if there are any questions or concerns that arise at home. 08/18 21:58 Order name: CBC with Diff; Complete Time: 22:44 kb 08/18 21:58 Order name: CMP; Complete Time: 23:06 kb 08/18 21:58 Order name: Lipase; Complete Time: 23:06 kb 08/18 21:58 Order name: CT Abd/Pelvis - IV Contrast Only kb 08/18 21:58 Order name: IV Saline Lock; Complete Time: 22:37 kb 08/18 21:58 Order name: Labs collected and sent; Complete Time: 22:37 kb Administered Medications: 08/18 22:18 Drug: NS 0.9% IV 1000 ml IV at 1 bolus Per protocol; 1000 mL bolus Route: IV; Rate: 1 bm8 bolus; Site: right antecubital; 08/19 00:25 Follow up: IV Status: Completed infusion; IV Intake: 1000ml km8 08/18 22:18 Drug: TORadol - Ketorolac IVP 15 mg IVP once Route: IVP; Site: right antecubital; bm8 08/19 00:25 Follow up: Response: No adverse reaction; Pain is decreased km8 Disposition: 07:25 Co-signature as Attending Physician, Alessandro Juan MD I agree with the assessment sp4 and plan of care. I reviewed the patient's care provided by the Advanced Practice Provider and agree with the diagnosis and treatment plan. Disposition Summary: 08/20/23 00:23 Discharge Ordered Notes: Location: Home kb Condition: Stable kb Diagnosis - Lower abdominal pain, unspecified kb Followup: kb - With: Emergency Department - When: As needed - Reason: Worsening of condition Followup: kb - With: Private Physician - When: 2 - 3 days - Reason: Recheck today's complaints, Continuance of care, Re-evaluation by your physician Discharge Instructions: - Discharge Summary Sheet kb - Pelvic Pain, Female, [id number] kb - Abdominal Pain, Adult, [id number] kb Forms: - Medication Reconciliation Form kb - Thank You Letter kb - Antibiotic Education kb - Prescription Opioid Use kb - Patient Portal Instructions kb - Leadership Thank You Letter kb Signatures: Dispatcher [employer] Loren Garza, FLORENTINO-C STAFF OCCUPATIONAL THERAPIST-Alessandro Wetzel MD MD sp4 Samantha Broderick, RN RN km8 Carlos Fregoso RN RN bm8
[2023-08-20 03:31] VITALS: BP 134/62; TEMP 97.1; O2SAT 100
--- NOTE | 2023-08-20 12:46 | RAD REPORT ---
EXAM DESCRIPTION: CT - Abdomen Pelvis W Contrast - 08/20/2023 6:44 am CLINICAL HISTORY: LLQ PAIN COMPARISON: 10/26/2022. TECHNIQUE: CT ABDOMEN PELVIS WITH IV CONTRAST on 08/19/2023 9:58 PM CDT This exam was performed according to our departmental dose-optimization program, which includes autom ated exposure control, adjustment of the mA and/or kV according to patient size and/or use of iterati ve reconstruction technique. FINDINGS: Lower lungs are clear. Abdomen: The liver is normal in appearance. There is no biliary dilatation. Gallbladder is normal in appearance. The pancreas and spleen are normal in appearance. Adrenal glands are normal. There is sca rring within the upper poles of both kidneys. There is no hydronephrosis. Abdominal aorta is normal in course and caliber without aneurysm. There is no free air. There is no r etroperitoneal adenopathy. Pelvis: There is no bowel obstruction. Urinary bladder is unremarkable. There is trace free pelvic fl uid. Uterus is normal in size. Appendix is normal. Skeleton: There are no acute osseous findings. No suspicious bony lesions. IMPRESSION: No acute process. Electronically signed by: Aftab Mittal MD 08/20/2023 12:13 AM CDT Due to temporary technical issues with the PACS/Fluency reporting system, reports are being signed by the in house radiologist without review as a courtesy to ensure prompt reporting. The interpreting r adiologist is fully responsible for the content of the report.
== END 2023-08-20 00:30 | disposition home or self-care (01) ==
LOC: ER 21:37
DX: R10.32 Left lower quadrant pain (principal)
CPT/HCPCS: 36415; 74177; 80053; 83690; 85025; 96361; 96374; 99284; J7030; Q9967

== ENCOUNTER 2023-09-16 18:13 | Emergency (ER) | payer SELFPAY ==
--- NOTE | 2023-09-16 18:50 | RAD REPORT ---
EXAM DESCRIPTION: RAD - Chest Single View - 09/16/2023 6:39 pm CLINICAL HISTORY: COUGH Chest pain. COMPARISON: Chest Single View dated 11/12/2021 FINDINGS: Portable technique limits examination quality. The lungs are grossly clear. The heart is normal in size. No displaced fractures. IMPRESSION: No acute intrathoracic process suspected.
[2023-09-16 18:57] LABS: SARS-CoV-2 Antigen CONTROL BLUE LINE VIS/BG OK; SARS-CoV-2 Antigen Rapid Res Negative (Negative)
[2023-09-16 19:46] LABS: Specific Gravity 1.022 (1.005-1.030)
[2023-09-16] MEDS ORDERED: predniSONE 20 MG TAB ONE (20:23)
--- NOTE | 2023-09-16 20:23 | EDPHYS ---
Physician Documentation [facility] Name: Oli Mcneil Age: 27 yrs Sex: Female : 1995 Arrival Date: 09/16/2023 Time: 18:13 Bed 11 Private MD: ED Physician Chito Valverde HPI: 09/15 18:19 This 27 yrs old Female presents to ER via Unassigned with complaints of Cough, kb Breathing Difficulty. 18:19 Pt is a 27 year old female who presents for fatigue, wheezing, cough with brown/yellow kb mucus, subjective fever that started 3-4 days bell captain. Denies n/v/d. . Historical: - Allergies: 18:26 PENICILLINS; iw 18:26 Sulfa (Sulfonamide Antibiotics); iw - PMHx: 18:26 adhd; HTN; Asthma; iw - Immunization history:: Adult Immunizations unknown. - Infectious Disease History:: Denies. - Social history:: Smoking status: unknown. ROS: 18:19 Constitutional: As per HPI kb Exam: 18:19 Constitutional: This is a well developed, well nourished patient who is awake, alert, kb and in no acute distress. Head/Face: Normocephalic, atraumatic. ENT: Moist Mucous membranes Cardiovascular: Regular rate Respiratory: Respirations even and unlabored. No increased work of breathing. Talking in full sentences Skin: Warm, dry with normal turgor. Normal color. MS/ Extremity: Pulses equal, no cyanosis. Neurovascular intact. Full, normal range of motion. Neuro: Awake and alert, GCS 15, oriented to person, place, time, and situation. Moves all extremities. Normal gait. Vital Signs: 18:26 BP 127 / 89; Pulse 100; Resp 18; Pulse Ox 96% on R/A; Weight 79.38 kg; Height 5 ft. 7 iw in. ; 20:33 BP 146 / 63; Pulse 78; Resp 19; Temp 97.8(TE); Pulse Ox 96% on R/A; Pain 0/10; tm6 18:26 Body Mass Index 27.41 (79.38 kg, 170.18 cm) iw 20:33 Pain Scale: Adult tm6 MDM: 18:18 Patient medically screened. kb 18:20 Differential Diagnosis: Influenza Upper Respiratory Infection Pneumonia Other covid. kb Data reviewed: vital signs, nurses notes. 19:53 Counseling: I had a detailed discussion with the patient and/or guardian regarding the historical points, exam findings, and any diagnostic results supporting the discharge/admit diagnosis, lab results, radiology results, the need for outpatient follow up, a family practitioner, to return to the emergency department if symptoms worsen or persist or if there are any questions or concerns that arise at home. 20:22 I considered the following discharge prescriptions or medication management in the emergency department I discussed and recommended Over The Counter medications, Antibiotics: At this time antibiotics are not recommended. 09/15 18:21 Order name: SARS-COV-2 Antigen Rapid; Complete Time: 19:01 kb 09/15 18:21 Order name: Flu; Complete Time: 19:01 kb 09/15 19:25 Order name: Test, Urine; Complete Time: 19:52 tm6 09/15 18:21 Order name: Chest Single View XRAY; Complete Time: 19:01 kb Administered Medications: 20:27 Drug: predniSONE PO 40 mg PO once Route: PO; tm6 Disposition: 09/16 19:59 Co-signature as Attending Physician, Chito Valverde MD I reviewed the patient's care rt provided by the Advanced Practice Provider and agree with the diagnosis and treatment plan. Disposition Summary: 09/16/23 20:22 Discharge Ordered Notes: Location: Home Condition: Stable Diagnosis - Acute upper respiratory infection, unspecified kb Followup: kb - With: Emergency Department - When: As needed - Reason: Worsening of condition Followup: kb - With: Private Physician - When: 2 - 3 days - Reason: Recheck today's complaints, Continuance of care, Re-evaluation by your physician Discharge Instructions: - Discharge Summary Sheet kb - Upper Respiratory Infection, Adult, [id number] kb - Viral Respiratory Infection, [id number] kb Forms: - Medication Reconciliation Form kb - Antibiotic Education kb - Prescription Opioid Use kb - Patient Portal Instructions kb - Leadership Thank You Letter Prescriptions: - Prednisone 20 mg Oral tablet - take 1 tablet ORAL route once daily for 4 days; 4 tablet; Refills: 0, Product kb Selection Permitted Signatures: Dispatcher [employer] Loren Garza FNP-C FNP-Ckb Williams, Irene, RN RN Betsy Flower RN RN [place], Chito, Brissa Garrett MD RN RN tm6 Corrections: (The following items were deleted from the chart) 09/15 18:21 18:21 SARS-COV-2 Antigen Rapid+I.LAB.BRZ ordered. EDMS EDMS 18:21 18:21 Influenza Screen (A \T\ B)+BA.LAB.BRZ ordered. EDMS EDMS 18:21 18:21 Chest Single View+RAD.RAD.BRZ ordered. EDMS EDMS
--- NOTE | 2023-09-16 20:23 | ER ---
Nurse's Notes [facility] Name: Oli Mcneil Age: 27 yrs Sex: Female : 1995 Arrival Date: 09/16/2023 Time: 18:13 Bed 11 Private MD: Diagnosis: Acute upper respiratory infection, unspecified Presentation: 09/15 18:26 Chief complaint: Patient states: wheezing, Congestion, coughing , had a cough for 2 iw weeks and wheezing started 3 days ago. Coronavirus screen: Client presents with at least one sign or symptom that may indicate coronavirus-19. Ebola Screen: Patient negative for fever greater than or equal to 101.5 degrees Fahrenheit, and additional compatible Ebola Virus Disease symptoms Patient denies exposure to infectious person. Patient denies travel to an Ebola-affected area in the 21 days before illness onset. No symptoms or risks identified at this time. Initial Sepsis Screen: Does the patient meet any 2 criteria? No. Patient's initial sepsis screen is negative. Does the patient have a suspected source of infection? No. Patient's initial sepsis screen is negative. Risk Assessment: Do you want to hurt yourself or someone else? Patient reports no desire to harm self or others. 18:26 Method Of Arrival: Ambulatory iw 18:27 Onset of symptoms was August 2023. iw 18:27 Acuity: YESENIA 4 iw Triage Assessment: 18:35 General: Appears in no apparent distress. Respiratory: Onset: The symptoms/episode ph began/occurred gradually, the patient has mild shortness of breath. Historical: - Allergies: 18:26 PENICILLINS; iw 18:26 Sulfa (Sulfonamide Antibiotics); iw - PMHx: 18:26 adhd; HTN; Asthma; iw - Immunization history:: Adult Immunizations unknown. - Infectious Disease History:: Denies. - Social history:: Smoking status: unknown. Screenin:35 [facility] ED Fall Risk Assessment (Adult) History of falling in the last 3 months, ph including since admission No falls in past 3 months (0 pts) Confusion or Disorientation No (0 pts) Intoxicated or Sedated No (0 pts) Impaired Gait No (0 pts) Mobility Assist Device Used No (0 pt) Altered Elimination No (0 pt) Score/Fall Risk Level 0 - 2 = Low Risk Oriented to surroundings, Maintained a safe environment. Abuse screen: Denies threats or abuse. Denies injuries from another. Nutritional screening: No deficits noted. Tuberculosis screening: No symptoms or risk factors identified. Assessment: 18:34 General: Appears in no apparent distress. comfortable, Behavior is calm, cooperative, ph appropriate for age. Pain: Denies pain. Neuro: Level of Consciousness is awake, alert, obeys commands, Oriented to person, place, time, situation. Cardiovascular: Capillary refill < 3 seconds in bilateral fingers Patient's skin is warm and dry. Cardiovascular: Rhythm is N/A. Respiratory: Reports shortness of breath at rest cough that is productive, Airway is patent Respiratory effort is even, unlabored, Breath sounds with wheezes in mediastinum. Derm: Skin is pink, warm \T\ dry. 20:33 Reassessment: Patient and/or family updated on plan of care and expected duration. Pain tm6 level reassessed. Patient is alert, oriented x 3, equal unlabored respirations, skin warm/dry/pink. Vital Signs: 18:26 BP 127 / 89; Pulse 100; Resp 18; Pulse Ox 96% on R/A; Weight 79.38 kg; Height 5 ft. 7 iw in. ; 20:33 BP 146 / 63; Pulse 78; Resp 19; Temp 97.8(TE); Pulse Ox 96% on R/A; Pain 0/10; tm6 18:26 Body Mass Index 27.41 (79.38 kg, 170.18 cm) iw 20:33 Pain Scale: Adult tm6 ED Course: 18:14 Patient arrived in ED. rg4 18:15 Claire Lopez, RN is Primary Nurse. iw 18:15 [facility]C [facility] iw 18:18 Chito Valverde MD is Attending Physician. kb 18:27 Triage completed. iw 18:27 Arm band placed on. iw 18:28 Betsy Flower, RN is Primary Nurse. ph 18:34 Flu Sent. ph 18:34 SARS-COV-2 Antigen Rapid Sent. ph 18:36 Patient has correct armband on for positive identification. Bed in low position. Call ph light in reach. Side rails up X 1. Door closed. Noise minimized. 18:36 No provider procedures requiring assistance completed. Patient did not have IV access ph during this emergency room visit. 18:41 Chest Single View XRAY In Process Unspecified. EDMS 19:35 Test, Urine Sent. tm6 20:34 Provided Education on: MED USE. tm6 Administered Medications: 20:27 Drug: predniSONE PO 40 mg PO once Route: PO; tm6 Medication: 18:36 VIS not applicable for this client. ph Outcome: 20:22 Discharge ordered by . dieter 20:34 Discharged to home ambulatory, with friend, tm6 20:34 Condition: stable 20:34 Discharge instructions given to patient, friend, Instructed on discharge instructions, follow up and referral plans. medication usage, Demonstrated understanding of instructions, follow-up care, medications, Prescriptions given X 1, 20:34 Patient left the ED. tm6 Signatures: Dispatcher [employer] EDWA Loren Cuevas, CHUCKER-C CHUCKER-Claire Saldivar, RN RN Betsy Hawkins RN Cordelia Puri ph4 Brissa Don RN RN tm6 Corrections: (The following items were deleted from the chart) 18:27 18:26 Chief complaint: Patient states: wheezing, Congestion, coughing iw iw
[2023-09-16 21:10] VITALS: BP 146/63; TEMP 97.8; O2SAT 96
== END 2023-09-16 20:34 | disposition home or self-care (01) ==
LOC: ER 18:13
DX: J06.9 Acute upper respiratory infection, unspecified (principal); Z11.52 Encounter for screening for COVID-19; Z88.0 Allergy status to penicillin; Z88.2 Allergy status to sulfonamides
CPT/HCPCS: 36415; 71045; 81025; 87804; 87811; J7512

== ENCOUNTER 2024-09-27 20:59 | Emergency (ER) | payer SELFPAY ==
--- NOTE | 2024-09-27 21:28 | ER ---
Nurse's Notes [facility] Name: Oli Mcneil Age: 28 yrs Sex: Female : 1995 Arrival Date: 09/27/2024 Time: 20:59 Bed IW1 Private MD: Diagnosis: Bitten by cat Presentation: 09/27 21:22 Chief complaint: Patient states: CAT SCRATCH THAT OCCURRED AT 1545 TODAY. MULTIPLE br2 SCRATCHES TO BILATERAL HAND AND ARMS. Coronavirus screen: Client denies travel out of the [place] in the last 14 days. Ebola Screen: Patient denies exposure to infectious person. Initial Sepsis Screen: Does the patient meet any 2 criteria? No. Patient's initial sepsis screen is negative. Does the patient have a suspected source of infection? No. Patient's initial sepsis screen is negative. Risk Assessment: Do you want to hurt yourself or someone else? Patient reports no desire to harm self or others. Onset of symptoms was September 27, 2024 at 15:30. 21:22 Method Of Arrival: Ambulatory br2 21:22 Acuity: YESENIA 4 br2 Triage Assessment: 21:24 Bite description: bite sustained to right arm and left arm by a cat, animal br2 information: Appearance: appeared well, vaccination(s) is unknown. General: Appears comfortable, Behavior is calm, cooperative. Pain: Complains of pain in right arm and left arm. 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 - Infectious Disease History:: Denies. - Social history:: Smoking status: Patient/guardian denies using tobacco, Patient uses alcohol, Patient/guardian denies using street drugs. Vital Signs: 21:22 BP 147 / 97; Pulse 96; Resp 18; Temp 97.5; Pulse Ox 99% ; Weight 79.38 kg; Height 5 ft. br2 7 in. ; Pain 3/10; 21:22 Body Mass Index 27.41 (79.38 kg, 170.18 cm) br2 21:22 Pain Scale: Adult br2 ED Course: 21:07 Patient arrived in ED. mr 21:07 Loren Cuevas FNP-C [facility]. kb 21:07 Alessandro Juan MD is Attending Physician. kb 21:24 Triage completed. br2 21:24 Arm band placed on. br2 Administered Medications: 21:34 Drug: Doxycycline PO 100 mg PO once Route: PO; br2 21:35 Drug: Boostrix Tdap IM 0.5 ml IM once; as a single dose Route: IM; Site: right deltoid; br2 Outcome: 21:28 Discharge ordered by . kb 21:37 Patient left the ED. br2 Signatures: Loren Cuevas FNP-C SECURITY CONSULTANT-Marta Osborn, Reg Reg Celia Crawford, RN RN br2
--- NOTE | 2024-09-27 21:28 | EDPHYS ---
Physician Documentation [facility] Name: Oli Mcneil Age: 28 yrs Sex: Female : 1995 Arrival Date: 09/27/2024 Time: 20:59 Bed IW1 Private MD: ED Physician Alessandro Juan HPI: 09/27 21:17 This 28 yrs old Female presents to ER via Unassigned with complaints of Cat Bite. kb 21:17 Pt is a 28 year old female who presents for cat bites to bilateral hands that occurred kb around 1545 today. States she was trying to break up the dog and cat when it occurred. . 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 - Infectious Disease History:: Denies. - Social history:: Smoking status: Patient/guardian denies using tobacco, Patient uses alcohol, Patient/guardian denies using street drugs. ROS: 21:20 Constitutional: As per HPI kb Exam: 21:20 Constitutional: This is a well developed, well nourished patient who is awake, alert, kb and in no acute distress. Head/Face: Normocephalic, atraumatic. ENT: Moist Mucous membranes Cardiovascular: Regular rate Respiratory: Respirations even and unlabored. No increased work of breathing. Talking in full sentences MS/ Extremity: Pulses equal, no cyanosis. Neurovascular intact. Full, normal range of motion. Neuro: Awake and alert, GCS 15, oriented to person, place, time, and situation. 21:20 Skin: multiple abrasions and puncture wounds to bilateral hands, all superficial. Vital Signs: 21:22 BP 147 / 97; Pulse 96; Resp 18; Temp 97.5; Pulse Ox 99% ; Weight 79.38 kg; Height 5 ft. br2 7 in. ; Pain 3/10; 21:22 Body Mass Index 27.41 (79.38 kg, 170.18 cm) br2 21:22 Pain Scale: Adult br2 MDM: 21:08 Medical Screening Exam initiated kb 21:21 Differential diagnosis: superficial laceration, tendon injury, vascular injury, kb cellulitis. Data reviewed: vital signs, nurses notes. Historians other than the Patient: Parent: mother. Counseling: I had a detailed discussion with the patient and/or guardian regarding the historical points, exam findings, and any diagnostic results supporting the discharge/admit diagnosis, the need for outpatient follow up, a family practitioner, to return to the emergency department if symptoms worsen or persist or if there are any questions or concerns that arise at home. Administered Medications: 21:34 Drug: Doxycycline PO 100 mg PO once Route: PO; br2 21:35 Drug: Boostrix Tdap IM 0.5 ml IM once; as a single dose Route: IM; Site: right deltoid; br2 Disposition: 09/28 20:07 Co-signature as Attending Physician, Alessandro Juan MD I agree with the assessment sp4 and plan of care. I reviewed the patient's care provided by the Advanced Practice Provider and agree with the diagnosis and treatment plan. Disposition Summary: 09/27/24 21:28 Discharge Ordered Notes: Location: Home kb Condition: Stable kb Diagnosis - Bitten by cat kb Followup: kb - With: Emergency Department - When: As needed - Reason: Worsening of condition Followup: kb - With: Private Physician - When: 2 - 3 days - Reason: Recheck today's complaints, Continuance of care, Re-evaluation by your physician Discharge Instructions: - Discharge Summary Sheet kb - Animal Bite, Adult, [id number] kb Forms: - Medication Reconciliation Form kb - Antibiotic Education kb - Prescription Opioid Use kb - Patient Portal Instructions kb - Leadership Thank You Letter kb Prescriptions: - Doxycycline Hyclate 100 mg Oral Tablet - take 1 tablet ORAL route every 12 hours; 20 tablet; Refills: 0, Product kb Selection Permitted Signatures: Loren Cuevas, Alessandro Hall MD MD sp4 Celia Stacy RN RN br2
[2024-09-27] MEDS ORDERED: TDAP (DIPHTH,PERTUSS(ACELL),TET VAC) 0.5 ML VIAL IMVAC ONE (21:30)
[2024-09-27] MEDS ORDERED: DOXYCYCLINE 100 MG CAP PO ONE (21:30)
[2024-09-27 21:43] VITALS: BP 147/97; TEMP 97.5; O2SAT 99
== END 2024-09-27 21:37 | disposition home or self-care (01) ==
LOC: ER 20:59
DX: S61.432A Puncture wound without foreign body of left hand, initial encounter (principal); S61.431A Puncture wound without foreign body of right hand, initial encounter; W55.01XA Bitten by cat, initial encounter
CPT/HCPCS: 90715